=== PATIENT | female | born 1970 | race Caucasian/White ===

== ENCOUNTER 2020-11-02 10:29 | Outpatient (REF) | payer MEDICAID, SELFPAY ==
--- NOTE | 2020-11-02 | US_ITS ---
EXAMINATION: US RETROPERITONEAL LIMITED (RENAL ONLY) CLINICAL INFORMATION: Nephrolithiasis, calculus of kidney. COMPARISON: None TECHNIQUE: Real-time imaging of the kidneys. FINDINGS: RIGHT KIDNEY: 10.1 x 5.0 x 4.9 cm (SAG x AP x TRV). The kidney is normal in size, contour, and echogenicity. Renal cortical thickness is normal. No calculi or focal parenchymal lesions. No hydronephrosis. LEFT KIDNEY: 10.5 x 5.6 x 5.0 cm (SAG x AP x TRV). The kidney is normal in size, contour, and echogenicity. Renal cortical thickness is normal. No calculi or focal parenchymal lesions. No hydronephrosis. US/US renal BI IMPRESSION: Unremarkable renal ultrasound.
== END 2020-11-02 10:30 | disposition home or self-care (01) ==
LOC: HO.US 10:29
PROVIDERS: Visit Provider Urology
DX: N20.0 Calculus of kidney (principal)
CPT/HCPCS: 76775

== ENCOUNTER → 2020-11-16 09:38 | Outpatient (BNVA) | payer MEDICAID, SELFPAY | PROVIDERS: PCP Nurse Practitioner Family; Referring Provider Nurse Practitioner Family; Visit Provider Urology ==

== ENCOUNTER 2021-08-01 11:23 | Emergency (ER) | payer MEDICAID, SELFPAY ==
--- NOTE | ~2021-08-01 | XR_ITS ---
EXAMINATION: XR CHEST CLINICAL INFORMATION: Cough and congestion COMPARISON: Previous chest x-ray June 2018 TECHNIQUE: Frontal view of the chest was obtained. FINDINGS: No significant abnormality is noted involving the heart, lungs, mediastinum, bony thorax or soft tissues. XR/XR chest 1V IMPRESSION: Unremarkable examination.
[2021-08-01 11:50] VITALS: BP 133/78; PULSE 100; RESP 19; TEMP 36.6; O2SAT 100; BMI 26.5
[2021-08-01 13:50] LABS: IDNOW Serial# 08D9AD1C; Strep A Nucleic Acid Negative (Negative)
--- NOTE | 2021-08-01 14:18 | ED_ITS ---
HPI - URI/Sore Throat General Chief Complaint: Upper Respiratory Symptoms Stated Complaint: diff breathing, multiple complaints Time Seen by Provider: 08/01/21 12:25 Source: patient Mode of arrival: ambulatory Limitations: no limitations History of Present Illness HPI Narrative: 51-year-old female with a past medical history of asthma and COVID in October of 2019 she reports she completely recovered from COVID who is up-to-date on her COVID vaccine last received her COVID vaccine on 04/28/2021 presenting to the ED with URI complaints which include bilateral ear pain, sore throat, nasal congestion/rhinorrhea, productive cough with yellow/green colored sputum and shortness of breath for the past 3 days worse today. Reports that her grandson was over her house a few days ago and had similar symptoms although he has not been evaluated per the patient. She also reports intermittent diarrhea. She denies any measured fevers, chills, dizziness, headache, chest pain, palpitations, dyspnea on exertion, orthopnea, nausea/vomiting, abdominal pain, back pain, black or bloody stools, dysuria, hematuria, rashes or any other symptoms complaints or concerns at this time. MD elicited complaint: cough, sore throat, rhinorrhea, nasal congestion and sinus pain Pertinent past history: asthma and other (COVID-19 on Oct 2019) Onset (ago): day(s) (3 days worse today ) Consistency: constant and progressively worsening Severity: moderate Description of mucous: clear, watery, yellow and green Able to tolerate fluids by mouth: Yes Exacerbating factors: swallowing and deep breaths Relieving factors: nothing Context: sick contacts (Has similar symptoms) Associated symptoms: myalgias, rhinorrhea, nasal congestion, sore throat, cough, diarrhea and ear pain Treatments prior to arrival: none Related Data Previous Rx's Medication Instructions Recorded acetaminophen 500 mg tablet 1,000 mg PO QID PRN #14 tab 08/01/21 (Tylenol Extra Strength) albuterol sulfate 90 mcg/actuation 1 inh INHALATION QID PRN #8.5 g 08/01/21 aerosol inhaler codeine 10 mg-guaifenesin 100 mg/5 5 ml PO Q6H PRN #120 ml 08/01/21 mL oral liquid (Guaifenesin AC) cyclobenzaprine 10 mg tablet 10 mg PO Q8H #10 tab 08/01/21 fluticasone propionate 50 1 spray INTRANASAL BID #16 g 08/01/21 mcg/actuation nasal spray,suspension (Children's Flonase Allergy Relief) prednisone 20 mg tablet 40 mg PO DAILY 5 Days #10 tab 08/01/21 Allergies Allergy/AdvReac Type Severity Reaction Status Date / Time naproxen [From NAPROSYN] Allergy Unknown STOMACH Unverified 11/16/20 09:41 UPSET Review of Systems Review of Systems: Constitutional : Positive malaise, No Weight loss, No Fever, No Chills, No Night Sweats, No Fatigue ENT/Mouth : Positive sore throat/ear pain/nasal congestion/rhinorrhea, No Hearing loss, No Sinus Pain, No Hoarseness, No Swallowing Difficulty Eyes: No Eye Pain, No Swelling, No Redness, No Foreign Body, No Discharge, No Vision Changes Cardiovascular : No Chest Pain, No SOB, No Dyspnea on Exertion, No Orthopnea, No Edema, No Palpitations Respiratory : Positive cough with sputum production, No Wheezing, No Smoke Exposure, No Dyspnea Gastrointestinal : Positive Diarrhea, No Nausea, No Vomiting, No Constipation, No abdominal Pain, No Hematochezia, No Melena Genitourinary : no irregular bleeding, No Dysuria, No Urinary Frequency, No Hematuria, No Urinary Incontinence, No Urgency, No Flank Pain, No Urinary Flow Changes, No Hesitancy Musculoskeletal : No joint pain, No Myalgias, No Joint Swelling Skin : No Skin Lesions, No rash Neuro : No Weakness, No Numbness, No Paresthesias, No Loss of Consciousness, No Dizziness, No Headache Psych : No Anxiety/Panic, No Depression, No SI/HI/AH/VH, No Social Issues, Heme/Lymph: No Bruising, No Bleeding,No Lymphadenopathy Endocrine : No Polyuria, No Polydipsia, No Temperature Intolerance Yes all other systems are reviewed and are negative [facility] Past Medical History Attestation statement: The following information was validated with the patient. Social History Social History Advance Directives: No Patient : No Physical Exam Vital Signs: Vital Signs: Last Vital Signs Temp 98 F 08/01/21 11:50 Pulse 100 08/01/21 11:50 Resp 19 08/01/21 11:50 BP 133/78 08/01/21 11:50 Pulse Ox 100 08/01/21 11:50 Body Mass Index 26.5 vital signs have been reviewed as normal and appeared to be correct. Blood pressure normal. Heart rate normal. Respiration rate normal. Temperature normal. Oxygen saturation normal. Appearance: Alert. Oriented X3. No acute distress. Head: Normal external exam. Normocephalic. Atraumatic. Eyes: PERRLA. EOMI. Conjunctiva and sclera normal. Eyelids normal. ENT: EAC normal. TM's Normal. Pharynx normal. Uvula midline. Moist mucous membranes. No trismus noted. No drooling noted. No muffled voice noted. Neck: Normal inspection. Neck supple. FROM. No adenopathy. Thyroid Normal. No meningeal signs. No neck mass noted. CVS: Normal heart rate and rhythm. Heart sound normal. Pulses normal throughout. No murmurs/rales/gallops. Respiratory: No respiratory distress. Painless inspiration. Breath sounds normal. No wheezes/rales/rhonchi noted. Chest nontender. No accessory muscle usage noted or decreased air movement noted. Abdomen: Soft and nontender. Bowel sounds normal in all 4 quadrants. No distention noted. No organomegaly noted. No visible injury noted. Back: Full range of motion noted. No rashes/lesion/induration/fluctuance or signs of infection noted. Skin: Skin warm and dry. Normal skin color. Normal skin turgor. No rashes/lesions/lacerations noted. Extremities: Extremities exhibit normal range of motion. Extremities nontender. Neuro: Oriented X 3. No motor deficit. No sensory deficit. Reflexes normal. Normal steady gait. No focal neuro deficits noted. Vascular: + radial pulses/+ 2 distal pedal pulses/+2 dorsalis pedis b/l. Normal cap refill. No cyanosis noted to upper extremity nails and lower extremity toes nails. Course Course Course Narrative: 51-year-old female presenting to the ED with URI symptoms for the past 3 days worse today. Positive sick contacts or grandson with similar symptoms although he was not evaluated by PCP or emergency department. Patient is positive for RSV. Negative for COVID/flu. Negative for strep. Chest x-ray is negative. I printed out the results and gave a copy to the patient. Will DC home with symptomatic treatment instructions return if any new or worsening symptoms and to follow up with primary care provider. Patient understands agrees with this plan. MDM - URI/Sore Throat Medical Records Attestation: I reviewed the patient's medical records. Lab Data Attestation: I reviewed the patient's lab results. Labs: Lab Results 08/01/21 Range/Units 13:22 S. pyogenes GrpA VIKKI Negative (Negative) Imaging Data Chest x-ray: Attestation: I personally reviewed and interpreted this imaging study as follows: Radiologist's impression: FINDINGS: No significant abnormality is noted involving the heart, lungs, mediastinum, bony thorax or soft tissues. XR/XR chest 1V IMPRESSION: Unremarkable examination. Discharge Plan Discharge Clinical Impression: Respiratory syncytial virus (RSV) Patient Disposition: Home, Self-Care Instructions: Respiratory Syncytial Virus (ED) Prescriptions: New cyclobenzaprine 10 mg tablet 10 mg PO Q8H Qty: 10 RF: 0 prednisone 20 mg tablet 40 mg PO DAILY 5 Days Qty: 10 RF: 0 acetaminophen [Tylenol Extra Strength] 500 mg tablet 1,000 mg PO QID PRN (Reason: fever or pain) Qty: 14 RF: 0 codeine-guaifenesin [Guaifenesin AC] 10-100 mg/5 mL liquid 5 ml PO Q6H PRN (Reason: cold symptoms) Qty: 120 RF: 0 albuterol sulfate 90 mcg/actuation HFA aerosol inhaler 1 inh inhalation QID PRN (Reason: shortness of breath or wheezing) Qty: 8.5 RF: 0 fluticasone propionate [Children's Flonase Allergy Rlf] 50 mcg/actuation spray,suspension 1 spray intranasal BID Qty: 16 RF: 0 Referrals: Physician,Unknown J [Primary Care Provider] - 2 days (your pcp) Stand Alone Forms: Work/School Release Print Language: Amharic
[2021-08-01 14:24] LABS: Influenza A PCR NEGATIVE (Negative); Influenza B PCR NEGATIVE (Negative); Resp Syncy Virus RNA Qual PCR POSITIVE (Negative); SARS COV2 PCR INHOUSE NEGATIVE (Negative)
== END 2021-08-01 15:05 | disposition home or self-care (01) ==
PROVIDERS: Physician Assistant Medical; Emergency Provider Emergency Medicine
DX: J06.9 Acute upper respiratory infection, unspecified (principal); B97.4 Respiratory syncytial virus as the cause of diseases classified elsewhere; R06.02 Shortness of breath; M79.10 Myalgia, unspecified site; R05.9 Cough, unspecified; Z20.822 Contact with and (suspected) exposure to COVID-19; Z79.899 Other long term (current) drug therapy
CPT/HCPCS: 0241U; 36415; 71045; 87651; 99283

== ENCOUNTER 2021-11-17 10:10 | Emergency (ER) | payer OTHER, SELFPAY ==
[2021-11-17 10:34] VITALS: BP 140/96; PULSE 86; RESP 18; TEMP 36; O2SAT 98; BMI 12107.2
--- NOTE | 2021-11-17 11:11 | ED_ITS ---
HPI - General Adult General Chief complaint: Upper Respiratory Symptoms Stated complaint: Headache/cough/sore throat Time Seen by Provider: 11/17/21 11:11 Source: patient Limitations: no limitations History of Present Illness HPI narrative: Patient presents to the ER with headache cough sore throat. Recent COVID-19 test is negative. Patient states she had COVID in the 1st wave is fully vaccinated but did not have a booster shot at this time. A known COVID-19 exposures. Pain increases with swallowing. Patient also has a longstanding history of asthma which she takes 2 inhalers for. Patient states cough has been nonproductive and sore throat as sharp in nature. Pain is 6/10. No other complaints at this time. No recent travel history. Related Data Previous Rx's Medication Instructions Recorded acetaminophen 500 mg tablet 1,000 mg PO QID PRN #14 tab 08/01/21 (Tylenol Extra Strength) albuterol sulfate 90 mcg/actuation 1 inh INHALATION QID PRN #8.5 g 08/01/21 aerosol inhaler codeine 10 mg-guaifenesin 100 mg/5 5 ml PO Q6H PRN #120 ml 08/01/21 mL oral liquid (Guaifenesin AC) cyclobenzaprine 10 mg tablet 10 mg PO Q8H #10 tab 08/01/21 fluticasone propionate 50 1 spray INTRANASAL BID #16 g 08/01/21 mcg/actuation nasal spray,suspension (Children's Flonase Allergy Relief) prednisone 20 mg tablet 40 mg PO DAILY 5 Days #10 tab 08/01/21 benzonatate 100 mg capsule 100 mg PO TID PRN #20 cap 11/17/21 Allergies Allergy/AdvReac Type Severity Reaction Status Date / Time naproxen [From NAPROSYN] Allergy Unknown STOMACH Unverified 11/16/20 09:41 UPSET Review of Systems Constitutional: Constitutional: Reports body ache(s), Denies chills, Reports fatigue, Reports fever(s) and Denies headache(s) ENT: Denies dizziness, Denies headache(s), Reports nasal congestion, Reports nasal discharge and Reports sore throat Cardiovascular: Cardiovascular: Denies chest pain and Denies dyspnea Respiratory: Respiratory: Reports cough and Denies dyspnea Gastrointestinal: Gastrointestinal: Denies diarrhea, Denies nausea and Denies vomiting Musculoskeletal: Musculoskeletal: Denies back pain and Denies muscle cramps Neurologic: Denies dizziness and Denies headache(s) Endocrine: Endocrine: Reports fatigue PMFSH Social History Social History Advance Directives: No Advance Directives Information Provided: No Physical Exam Vital Signs: Vital Signs: Last Vital Signs Temp 96.8 F 11/17/21 10:34 Pulse 86 11/17/21 10:34 Resp 18 11/17/21 10:34 BP 140/96 H 11/17/21 10:34 Pulse Ox 98 11/17/21 10:34 BMI result Body Mass Index 47809.2 vital signs have been reviewed as normal and appeared to be correct. Blood pressure normal. Heart rate normal. Respiration rate normal. Temperature normal. Oxygen saturation normal. Appearance: Alert. Oriented X3. No acute distress. Head: Normal external exam. Normocephalic. Atraumatic. Eyes: PERRLA. EOMI. Conjunctiva and sclera normal. Eyelids normal. ENT: Pharynx normal. Uvula midline. Moist mucous membranes. No evidence of peritonsillar abscess no stridor Neck: Soft full range of motion CVS: Heart regular rate and rhythm no murmurs and rubs Respiratory: Breath sounds are clear to auscultation bilaterally. No accessory muscle use noted Back: Full range of motion noted. Skin: Skin warm and dry. Normal skin color. Normal skin turgor. No rashes/lesions/lacerations noted. Extremities: No lower extremity edema. Extremities exhibit normal range of motion. Extremities nontender. Neuro: Oriented X 3. No motor deficit. No sensory deficit. Reflexes normal. Course Course Course Narrative: Asthma exacerbation Viral URI COVID-19 Pharyngitis COVID-19 swab is pending room air O2 sat is 98%. Patient is nontoxic in appeara nce lung signs are otherwise clear with no tachypnea or respiratory distress. 11:30 a.m. COVID-19 test is negative plan to discharge patient home on [facility] and recommend follow-up test in 1 week. Medical Decision Making Lab Data Labs: Lab Results 11/17/21 Range/Units 10:44 COVID-19 (JR) Negative (Negative) COVID-19 Clin Com See Note Discharge Plan Discharge Clinical Impression: Upper respiratory infection Patient Disposition: Home, Self-Care Instructions: Upper Respiratory Infection (ED) Additional Instructions: COVID-19 test is negative continue current medications increase fluids rest Recommend repeat COVID-19 test in 3-4 days Prescriptions: New benzonatate 100 mg capsule 100 mg PO TID PRN (Reason: cough) Qty: 20 RF: 0 No Action cyclobenzaprine 10 mg tablet 10 mg PO Q8H Qty: 10 RF: 0 prednisone 20 mg tablet 40 mg PO DAILY 5 Days Qty: 10 RF: 0 acetaminophen [Tylenol Extra Strength] 500 mg tablet 1,000 mg PO QID PRN (Reason: fever or pain) Qty: 14 RF: 0 codeine-guaifenesin [Guaifenesin AC] 10-100 mg/5 mL liquid 5 ml PO Q6H PRN (Reason: cold symptoms) Qty: 120 RF: 0 albuterol sulfate 90 mcg/actuation HFA aerosol inhaler 1 inh inhalation QID PRN (Reason: shortness of breath or wheezing) Qty: 8.5 RF: 0 fluticasone propionate [Children's Flonase Allergy Rlf] 50 mcg/actuation spray,suspension 1 spray intranasal BID Qty: 16 RF: 0 Stand Alone Forms: Work/School Release Print Language: Marshallese
[2021-11-17 11:20] LABS: COVID-19 Test Negative (Negative); IDNOW Serial# 55D5AD1C
== END 2021-11-17 11:49 | disposition home or self-care (01) ==
LOC: HO.ED 11:32
PROVIDERS: Emergency Provider Emergency Medicine Emergency Medical Services
DX: J06.9 Acute upper respiratory infection, unspecified (principal); Z20.822 Contact with and (suspected) exposure to COVID-19; J02.9 Acute pharyngitis, unspecified
CPT/HCPCS: 87635; 99283

== ENCOUNTER 2022-03-22 20:52 | Emergency (ER) | payer OTHER, SELFPAY ==
--- NOTE | 2022-03-22 | ECG_ITS ---
Test Reason : PALPITATIONS Blood Pressure : / mmHG Vent. Rate : 080 BPM Atrial Rate : 080 BPM P-R Int : 130 ms QRS Dur : 082 ms QT Int : 414 ms P-R-T Axes : 061 040 -09 degrees QTc Int : 477 ms Normal sinus rhythm Nonspecific ST and T wave abnormality Abnormal ECG When compared with ECG of 18-JUL-2018 13:28, Premature ventricular complexes are no longer Present Referred By: Generic ED Physician Electronically Signed By:Lorenzo Narayanan
[2022-03-22 21:29] VITALS: BP 166/108; PULSE 81; RESP 24; TEMP 36.4; O2SAT 99; BMI 27.4
[2022-03-22 21:47] LABS: MANUAL DIFF FLAG NO
[2022-03-22 21:48] LABS: Basophils Absolute Auto 0.1 X10*3/uL (0.0-0.2); Basophils Percent Auto 0.8 % (0-2); Eosinophils Absolute Auto 0.2 X10*3/uL (0.0-0.4); Eosinophils Percent Auto 2.4 % (0-4); Hematocrit 39.4 % (37.0-47.0); Hemoglobin 12.9 g/dl (12.0-16.0); Imm Gran Abs Auto 0.01 X10*3/uL (0.00-0.03); Imm Gran Pct Auto 0.1 % (0.0-0.4); Lymphocytes Absolute Auto 2.4 X10*3/uL (1.2-4.9); Mean Corpuscular HGB Conc 32.7 g/dl (31.0-35.0); Mean Corpuscular Hemoglobin 27.2 pg (27.0-33.0); Mean Corpuscular Volume 83.1 fL (80.0-98.0); Mean Platelet Volume 10.2 fL (9.4-12.3); Monocytes Absolute Auto 0.4 X10*3/uL (0.1-1.2); Neutrophils Absolute Auto 4.6 x10*3/uL (2.0-8.3); Neutrophils Percent Auto 60.7 % (45-73); Platelet Count 393 X10*3/uL (160-400); Red Blood Count 4.74 X10*6/uL (4.20-5.50); Red Cell Distribution Width 12.4 % (11.0-16.0); White Blood Count 7.6 X10*3/uL (4.8-10.8)
[2022-03-22 22:10] LABS: Alanine Aminotransferase 32 U/L (0-31); Albumin Level 4.2 g/dL (3.5-5.0); Alkaline Phosphatase 104 U/L (39-117); Anion Gap 13 (12-20); Aspartate Amino Transferase 28 U/L (5-31); Bilirubin Total 1.2 mg/dL (0.0-1.0); Blood Urea Nitrogen 16 mg/dL (9-16); Carbon Dioxide 25 mmol/L (22-29); Chloride 108 mmol/L (96-108); Creatinine Clr Calc Pharmacy 84.3; Estimated Glomerular Filt Rate > 60; Glucose Random 85 mg/dL (60-115); Potassium 3.7 mmol/L (3.3-5.1); Sodium 142 mmol/L (135-145); Total Protein 7.5 g/dL (6.5-8.0)
[2022-03-23 03:41] VITALS: BP 183/93; PULSE 66
--- NOTE | 2022-03-23 04:29 | ED.GENADULT ---
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 patient with back pain down left leg with a history of sciatica. Patient also stating that her blood pressure is high. patient was feeling weird so she took her blood pressure. patient had BP 138/92. Onset (ago): day(s) Radiation: extremity Severity: mild Related Data Previous Rx's Medication Instructions Recorded acetaminophen 500 mg tablet 1,000 mg PO QID PRN #14 tab 08/01/21 (Tylenol Extra Strength) albuterol sulfate 90 mcg/actuation 1 inh INHALATION QID PRN #8.5 g 08/01/21 aerosol inhaler codeine 10 mg-guaifenesin 100 mg/5 5 ml PO Q6H PRN #120 ml 08/01/21 mL oral liquid (Guaifenesin AC) cyclobenzaprine 10 mg tablet 10 mg PO Q8H #10 tab 08/01/21 fluticasone propionate 50 1 spray INTRANASAL BID #16 g 08/01/21 mcg/actuation nasal spray,suspension (Children's Flonase Allergy Relief) prednisone 20 mg tablet 40 mg PO DAILY 5 Days #10 tab 08/01/21 benzonatate 100 mg capsule 100 mg PO TID PRN #20 cap 11/17/21 lisinopril 10 mg tablet 10 mg PO DAILY #30 tab 03/23/22 meloxicam 15 mg tablet 15 mg PO DAILY #20 tab 03/23/22 Allergies Allergy/AdvReac Type Severity Reaction Status Date / Time naproxen [From NAPROSYN] Allergy Unknown STOMACH Verified 03/22/22 21:28 UPSET Review of Systems Constitutional: Constitutional: Reports no additional constitutional complaints Eyes: Eyes: Reports no additional eye complaints ENT: Denies dizziness Cardiovascular: Cardiovascular: Reports no additional cardiovascular complaints Respiratory: Respiratory: Reports as per HPI Gastrointestinal: Gastrointestinal: Reports no additional gastrointestinal complaints Genitourinary: Genitourinary: Reports no additional female genitourinary complaints Musculoskeletal: Musculoskeletal: Reports no additional musculoskeletal complaints Integumentary/Breasts: Skin/Breast: Denies rash Neurologic: Reports system reviewed and no additional complaints, except as documented, Denies dizziness and Denies Sensory deficit (Neuro) Psychiatric: Psychiatric: Denies anxiety [facility] Social History Social History Advance Directives: No Advance Directives Information Provided: No Physical Exam ED Vital Signs: Vital Signs - 24 hr 03/22/22 21:29 03/23/22 03:41 Temperature 97.6 F Pulse Rate 81 66 Respiratory Rate 24 H Blood Pressure 166/108 H 183/93 H Pulse Oximetry 99 BMI result Body Mass Index 27.4 Const General: healthy appearing Nutritional Appearance: average body habitus Orientation/consciousness: oriented to person and patient oriented x3 Limitations: no limitations HENMT Head: Yes normal to inspection Ears: external ears normal General nose exam: Normal external nose present Mouth: Normal oral and palatal mucosa present and oropharynx normal Throat: Yes posterior oropharynx normal Eyes General: appearance normal, both eyes and all related structures Neck Neck: Yes normal visual inspection Chest Chest palpation & inspection: normal inspection of the chest Resp Auscultation: clear to auscultation bilaterally Cardio Jugular venous distension: no JVD Rate: regular rate Rhythm: regular rhythm Heart sounds: S1 normal heart sound present and S2 normal heart sound present GI Inspection: Yes normal to inspection Palpation (GI): Soft to palpation, nontender and No hepatosplenomegaly present Auscultation: normal bowel sounds Back/Spine/Pelvis Other: left lumbar area with SI joint pain and sciatica tendernes Skin General skin exam: no rashes or lesions noted Neuro General: oriented to person and patient oriented x3 Cranial nerves: Yes CN's II-XII intact bilaterally Motor exam (neuro): 5/5 motor strength present throughout Sensory Exam: No Sensory deficit (Neuro) Extrem General: Yes normal to inspection Psych Appearance: grossly normal Course Reevaluation(s) Reevaluation #1: patient has sciatica and elevated BP will start lisinopril and dc home Time: 04:52 Medical Decision Making Lab Data Result diagrams: 03/22/22 21:42 03/22/22 21:41 Labs: Lab Results 03/22/22 03/22/22 Range/Units 21:41 21:42 WBC 7.6 (4.8-10.8) X10*3/uL RBC 4.74 (4.20-5.50) X10*6/uL Hgb 12.9 (12.0-16.0) g/dl Hct 39.4 (37.0-47.0) % MCV 83.1 (80.0-98.0) fL MCH 27.2 (27.0-33.0) pg MCHC 32.7 (31.0-35.0) g/dl RDW 12.4 (11.0-16.0) % Plt Count 393 (160-400) X10*3/uL MPV 10.2 (9.4-12.3) fL Immature Gran % (Auto) 0.1 (0.0-0.4) % Neut % (Auto) 60.7 (45-73) % Lymph % (Auto) 31.0 (20-40) % Lipscomb % (Auto) 5.0 (2-11) % Eos % (Auto) 2.4 (0-4) % Baso % (Auto) 0.8 (0-2) % Lymph # (Auto) 2.4 (1.2-4.9) X10*3/uL Lipscomb # (Auto) 0.4 (0.1-1.2) X10*3/uL Eos # (Auto) 0.2 (0.0-0.4) X10*3/uL Baso # (Auto) 0.1 (0.0-0.2) X10*3/uL Abs Immat Gran (auto) 0.01 (0.00-0.03) X10*3/uL Absolute Neuts (auto) 4.6 (2.0-8.3) x10*3/uL Absolute Nucleated RBC 0.000 (0.0-0.012) X10*3/uL Nucleated RBC % (auto) 0.0 (0.0-0.2) /100WBC Sodium 142 (135-145) mmol/L Potassium 3.7 (3.3-5.1) mmol/L Chloride 108 (96-108) mmol/L Carbon Dioxide 25 (22-29) mmol/L Anion Gap 13 (12-20) BUN 16 (9-16) mg/dL Creatinine 0.75 (0.5-1.4) mg/dL Estim Creat Clear Calc 84.3 Estimated GFR > 60 Random Glucose 85 (60-115) mg/dL Calcium 10.0 (8.4-10.2) mg/dL Total Bilirubin 1.2 H (0.0-1.0) mg/dL AST 28 (5-31) U/L ALT 32 H (0-31) U/L Alkaline Phosphatase 104 (39-117) U/L Total Protein 7.5 (6.5-8.0) g/dL Albumin 4.2 (3.5-5.0) g/dL Discharge Plan Discharge Clinical Impression: Sciatica, Hypertension Patient Disposition: Home, Self-Care Instructions: Sciatica (ED), Hypertension (ED) Prescriptions: New meloxicam 15 mg tablet 15 mg PO DAILY Qty: 20 0RF lisinopril 10 mg tablet 10 mg PO DAILY Qty: 30 0RF No Action cyclobenzaprine 10 mg tablet 10 mg PO Q8H Qty: 10 0RF prednisone 20 mg tablet 40 mg PO DAILY 5 Days Qty: 10 0RF acetaminophen [Tylenol Extra Strength] 500 mg tablet 1,000 mg PO QID PRN (Reason: fever or pain) Qty: 14 0RF codeine-guaifenesin [Guaifenesin AC] 10-100 mg/5 mL liquid 5 ml PO Q6H PRN (Reason: cold symptoms) Qty: 120 0RF albuterol sulfate 90 mcg/actuation HFA aerosol inhaler 1 inh inhalation QID PRN (Reason: shortness of breath or wheezing) Qty: 8.5 0RF fluticasone propionate [Children's Flonase Allergy Rlf] 50 mcg/actuation spray,suspension 1 spray intranasal BID Qty: 16 0RF Rx Instructions: administer into each nostril benzonatate 100 mg capsule 100 mg PO TID PRN (Reason: cough) Qty: 20 0RF Referrals: Farhan Nelson MD [Primary Care Provider] - 3 days
[2022-03-23] MEDS: Ketorolac Tromethamine 60 MG/2 ML VIAL IM (05:00)
[2022-03-23] MEDS: lisinopriL 10 MG TABLET PO (05:00)
== END 2022-03-23 05:17 | disposition home or self-care (01) ==
PROVIDERS: Emergency Provider Emergency Medicine; PCP Internal Medicine
DX: M54.42 Lumbago with sciatica, left side (principal); I10 Essential (primary) hypertension
CPT/HCPCS: 36415; 80053; 85025; 93005; 96372; 99283; 99284; J1885

== ENCOUNTER 2022-05-04 13:56 | Emergency (ER) | payer OTHER, SELFPAY ==
--- NOTE | 2022-05-04 | ECG_ITS ---
Test Reason : cp,dizzy Blood Pressure : / mmHG Vent. Rate : 074 BPM Atrial Rate : 074 BPM P-R Int : 116 ms QRS Dur : 078 ms QT Int : 400 ms P-R-T Axes : -12 029 -09 degrees QTc Int : 444 ms Normal sinus rhythm Normal ECG When compared with ECG of 22-MAR-2022 21:26, No significant change was found Referred By: Generic ED Physician Electronically Signed By:Lorenzo Narayanan
--- NOTE | ~2022-05-04 | XR_ITS ---
EXAMINATION: XR CHEST CLINICAL INFORMATION: Chest pain COMPARISON: 08/01/2021 TECHNIQUE: Frontal view of the chest was obtained. FINDINGS: No significant abnormality is noted involving the heart, lungs, mediastinum, bony thorax or soft tissues. XR/XR chest 1V IMPRESSION: Unremarkable examination.
[2022-05-04 14:11] LABS: MANUAL DIFF FLAG NO
[2022-05-04 14:12] VITALS: BP 152/94; PULSE 72; RESP 18; TEMP 36.6; O2SAT 99; BMI 26.5
[2022-05-04 14:15] LABS: Basophils Percent Auto 0.5 % (0-2); Eosinophils Absolute Auto 0.1 X10*3/uL (0.0-0.4); Eosinophils Percent Auto 2.3 % (0-4); Hematocrit 38.7 % (37.0-47.0); Hemoglobin 12.6 g/dl (12.0-16.0); Imm Gran Abs Auto 0.02 X10*3/uL (0.00-0.03); Imm Gran Pct Auto 0.3 % (0.0-0.4); Lymphocytes Absolute Auto 1.4 X10*3/uL (1.2-4.9); Lymphocytes Percent Auto 23.7 % (20-40); Mean Corpuscular HGB Conc 32.6 g/dl (31.0-35.0); Mean Corpuscular Hemoglobin 27.5 pg (27.0-33.0); Mean Corpuscular Volume 84.3 fL (80.0-98.0); Mean Platelet Volume 10.4 fL (9.4-12.3); Monocytes Absolute Auto 0.3 X10*3/uL (0.1-1.2); Monocytes Percent Auto 4.4 % (2-11); Neutrophils Absolute Auto 3.9 x10*3/uL (2.0-8.3); Neutrophils Percent Auto 68.8 % (45-73); Platelet Count 381 X10*3/uL (160-400); Red Blood Count 4.59 X10*6/uL (4.20-5.50); White Blood Count 5.7 X10*3/uL (4.8-10.8)
[2022-05-04 14:25] LABS: Anion Gap 11 (12-20); Blood Urea Nitrogen 15 mg/dL (9-16); Calcium 9.4 mg/dL (8.4-10.2); Carbon Dioxide 25 mmol/L (22-29); Chloride 109 mmol/L (96-108); Creatinine Clr Calc Pharmacy 80.9; Estimated Glomerular Filt Rate > 60; Glucose Random 115 mg/dL (60-115); Potassium 4.3 mmol/L (3.3-5.1); Sodium 141 mmol/L (135-145)
[2022-05-04 14:33] LABS: Troponin-I High Sensitivity < 3.5 ng/L (<3.5-17.0)
[2022-05-04 19:46] VITALS: BP 145/92; PULSE 70; RESP 16; TEMP 36.7; O2SAT 99
--- NOTE | 2022-05-04 20:03 | ED_ITS ---
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 Patient admitted that she is been having stress in her work due to shortage of workers at work, patient gets nightmares and bad dreams about working. Been having palpitation and headache with chest pain on and off for the last 3- 4 days, more of palpitation that bother the patient that is intermittent, triggered by thinking about working, no aggravating or relieving factor. No radiation, no shortness of breath. Patient with this feels dizzy and headache for the past 3-4 days. Past medical history is significant for asthma, no hypertension, no history of high cholesterol, no DM. No recent travel, no lower extremity swelling or tenderness. No history of PE or DVT. Related Data Previous Rx's Medication Instructions Recorded acetaminophen 500 mg tablet 1,000 mg PO QID PRN fever or pain 08/01/21 (Tylenol Extra Strength) #14 tabs albuterol sulfate 90 mcg/actuation 1 inh inhalation QID PRN shortness 08/01/21 aerosol inhaler of breath or wheezing #8.5 grams codeine 10 mg-guaifenesin 100 mg/5 5 ml PO Q6H PRN cold symptoms #120 08/01/21 mL oral liquid (Guaifenesin AC) mL cyclobenzaprine 10 mg tablet 10 mg PO Q8H Muscle spasm #10 tabs 08/01/21 fluticasone propionate 50 1 spray intranasal BID nasal 08/01/21 mcg/actuation nasal congestion #16 grams spray,suspension (Children's Flonase Allergy Relief) prednisone 20 mg tablet 40 mg PO DAILY rash 5 days #10 tabs 08/01/21 benzonatate 100 mg capsule 100 mg PO TID PRN cough #20 caps 11/17/21 lisinopril 10 mg tablet 10 mg PO DAILY #30 tabs 03/23/22 meloxicam 15 mg tablet 15 mg PO DAILY #20 tabs 03/23/22 Allergies Allergy/AdvReac Type Severity Reaction Status Date / Time naproxen [From NAPROSYN] AdvReac Unknown STOMACH Verified 05/04/22 14:10 UPSET Review of Systems Review of Systems: All other systems are reviewed and are negative Constitutional: Reports as per HPI and Reports no additional constitutional complaints Eyes: Reports as per HPI and Reports no additional eye complaints Reports system reviewed and no additional complaints, except as documented Cardiovascular: Reports as per HPI and Reports no additional cardiovascular complaints Respiratory: Reports as per HPI and Reports no additional respiratory complaints Gastrointestinal: Reports as per HPI and Reports no additional gastrointestinal complaints Genitourinary: Reports no additional female genitourinary complaints Musculoskeletal: Reports no additional musculoskeletal complaints Skin/Breast: Reports system reviewed and no additional complaints, except as docu Psychiatric: Reports no additional psychiatric complaints Endocrine: Reports no additional endocrine complaints Hematologic/Lymphatic: Reports no additional hematologic/lymphatic complaints Allergic/Immunologic: Reports no additional allergic/immunologic complaints Reports system reviewed and no additional complaints, except as documented and Reports Abnormal speech present [facility] Social History Social History Advance Directives: No Advance Directives Information Provided: Yes Physical Exam ED Vital Signs: Vital Signs - 24 hr 05/04/22 14:12 05/04/22 19:46 Temperature 98 F 98.1 F Pulse Rate 72 70 Respiratory Rate 18 16 Blood Pressure 152/94 H 145/92 H Pulse Oximetry 99 99 Oxygen Delivery Method Room Air Room Air BMI result Body Mass Index 26.5 Vital signs have been reviewed as appeared to be correct. Blood pressure nor mal. Heart rate normal. Respiration rate normal. Temperature normal. Oxygen saturation normal. Appearance: Alert. Oriented X3. No acute distress. Head: Normal external exam. Normocephalic. Atraumatic. No Cash signs noted. No raccoon eyes noted Eyes: PERRLA. EOMI. Conjunctiva and sclera normal. Eyelids normal. ENT: TM's Normal. Pharynx normal. Uvula midline. Moist mucous membranes. No trismus noted. No drooling noted. No muffled voice noted. Neck: Normal inspection. Neck supple. FROM. No adenopathy. Thyroid Normal. No meningeal signs. No neck mass noted. CVS: Normal heart rate and rhythm. Heart sound normal. No murmurs noted. Pulses normal throughout. Respiratory: No respiratory distress. Painless inspiration. Breath sounds normal. No wheezes/rales/rhonchi noted. Chest nontender. No accessory muscle usage noted or decreased air movement noted. Abdomen: Soft and nontender. Bowel sounds normal in all 4 quadrants. No distention noted. No organomegaly noted. No visible injury noted. Back: No CVA tenderness. Full range of motion noted. Skin: Skin warm and dry. Normal skin color. Normal skin turgor. No rashes/lesions/lacerations noted. Extremities: No lower extremity edema. Extremities exhibit normal range of motion. Extremities nontender. Neuro: Oriented X 3. Cranial nerve exam: II-XII are grossly intact No motor deficit. No sensory deficit. Reflexes normal. Course Course Course Narrative: 51-year-old female with HEART score of 1 unremarkable finding, patient also had very low risk for PE. Patient admitted to stress in her job that is probably causing her symptoms. Will discharge the patient to follow-up with PCP. No HI or SI. Medical Decision Making Lab Data Lab results reviewed: Yes I reviewed the patient's lab results. Result diagrams: 05/04/22 14:07 05/04/22 14:07 Labs: Lab Results 05/04/22 05/04/22 05/04/22 Range/Units 14:07 14:07 14:07 WBC 5.7 (4.8-10.8) X10*3/uL RBC 4.59 (4.20-5.50) X10*6/uL Hgb 12.6 (12.0-16.0) g/dl Hct 38.7 (37.0-47.0) % MCV 84.3 (80.0-98.0) fL MCH 27.5 (27.0-33.0) pg MCHC 32.6 (31.0-35.0) g/dl RDW 13.0 (11.0-16.0) % Plt Count 381 (160-400) X10*3/uL MPV 10.4 (9.4-12.3) fL Immature Gran % (Auto) 0.3 (0.0-0.4) % Neut % (Auto) 68.8 (45-73) % Lymph % (Auto) 23.7 (20-40) % [place] % (Auto) 4.4 (2-11) % Eos % (Auto) 2.3 (0-4) % Baso % (Auto) 0.5 (0-2) % Lymph # (Auto) 1.4 (1.2-4.9) X10*3/uL [place] # (Auto) 0.3 (0.1-1.2) X10*3/uL Eos # (Auto) 0.1 (0.0-0.4) X10*3/uL Baso # (Auto) 0.0 (0.0-0.2) X10*3/uL Abs Immat Gran (auto) 0.02 (0.00-0.03) X10*3/uL Absolute Neuts (auto) 3.9 (2.0-8.3) x10*3/uL Absolute Nucleated RBC 0.000 (0.0-0.012) X10*3/uL Nucleated RBC % (auto) 0.0 (0.0-0.2) /100WBC D-Dimer High Sensitivty NG/ML Sodium 141 (135-145) mmol/L Potassium 4.3 (3.3-5.1) mmol/L Chloride 109 H (96-108) mmol/L Carbon Dioxide 25 (22-29) mmol/L Anion Gap 11 L (12-20) BUN 15 (9-16) mg/dL Creatinine 0.77 (0.5-1.4) mg/dL Estim Creat Clear Calc 80.9 Estimated GFR > 60 Random Glucose 115 (60-115) mg/dL Calcium 9.4 (8.4-10.2) mg/dL Troponin I High Sens < 3.5 (<3.5-17.0) ng/L 05/04/22 05/04/22 Range/Units 20:07 20:07 WBC (4.8-10.8) X10*3/uL RBC (4.20-5.50) X10*6/uL Hgb (12.0-16.0) g/dl Hct (37.0-47.0) % MCV (80.0-98.0) fL MCH (27.0-33.0) pg MCHC (31.0-35.0) g/dl RDW (11.0-16.0) % Plt Count (160-400) X10*3/uL MPV (9.4-12.3) fL Immature Gran % (Auto) (0.0-0.4) % Neut % (Auto) (45-73) % Lymph % (Auto) (20-40) % [place] % (Auto) (2-11) % Eos % (Auto) (0-4) % Baso % (Auto) (0-2) % Lymph # (Auto) (1.2-4.9) X10*3/uL [place] # (Auto) (0.1-1.2) X10*3/uL Eos # (Auto) (0.0-0.4) X10*3/uL Baso # (Auto) (0.0-0.2) X10*3/uL Abs Immat Gran (auto) (0.00-0.03) X10*3/uL Absolute Neuts (auto) (2.0-8.3) x10*3/uL Absolute Nucleated RBC (0.0-0.012) X10*3/uL Nucleated RBC % (auto) (0.0-0.2) /100WBC D-Dimer High Sensitivty < 150 NG/ML Sodium (135-145) mmol/L Potassium (3.3-5.1) mmol/L Chloride (96-108) mmol/L Carbon Dioxide (22-29) mmol/L Anion Gap (12-20) BUN (9-16) mg/dL Creatinine (0.5-1.4) mg/dL Estim Creat Clear Calc Estimated GFR Random Glucose (60-115) mg/dL Calcium (8.4-10.2) mg/dL Troponin I High Sens < 3.5 (<3.5-17.0) ng/L Imaging Data Chest x-ray: Attestation: I personally reviewed and interpreted this imaging study as follows: Radiologist's impression: Unremarkable examination. ECG Data Attestation: I personally reviewed and interpreted this ECG as follows: Interpretation: Normal sinus rhythm at 74 beats per minutes, normal intervals, normal axis deviation, no ST-T changes. Discharge Plan Discharge Clinical Impression: Panic disorder, Chest pain Patient Disposition: Home, Self-Care Instructions: Panic Disorder (ED) Prescriptions: No Action cyclobenzaprine 10 mg tablet 10 mg PO Q8H Qty: 10 0RF prednisone 20 mg tablet 40 mg PO DAILY 5 Days Qty: 10 0RF acetaminophen [Tylenol Extra Strength] 500 mg tablet 1,000 mg PO QID PRN (Reason: fever or pain) Qty: 14 0RF codeine-guaifenesin [Guaifenesin AC] 10-100 mg/5 mL liquid 5 ml PO Q6H PRN (Reason: cold symptoms) Qty: 120 0RF albuterol sulfate 90 mcg/actuation HFA aerosol inhaler 1 inh inhalation QID PRN (Reason: shortness of breath or wheezing) Qty: 8.5 0RF fluticasone propionate [Children's Flonase Allergy Rlf] 50 mcg/actuation spray,suspension 1 spray intranasal BID Qty: 16 0RF Rx Instructions: administer into each nostril benzonatate 100 mg capsule 100 mg PO TID PRN (Reason: cough) Qty: 20 0RF meloxicam 15 mg tablet 15 mg PO DAILY Qty: 20 0RF lisinopril 10 mg tablet 10 mg PO DAILY Qty: 30 0RF Referrals: Physician,Unknown J [Primary Care Provider] - Stand Alone Forms: Work/School Release
[2022-05-04 20:30] LABS: D Dimer High Sensitivity < 150 NG/ML
[2022-05-04 20:34] LABS: Troponin-I High Sensitivity < 3.5 ng/L (<3.5-17.0)
[2022-05-04] MEDS: Acetaminophen 325 MG TABLET 650 MG PO (22:52)
== END 2022-05-04 22:58 | disposition home or self-care (01) ==
PROVIDERS: Emergency Provider Emergency Medicine
DX: R07.89 Other chest pain (principal); R42 Dizziness and giddiness; R51.9 Headache, unspecified; F41.0 Panic disorder [episodic paroxysmal anxiety]; Z79.899 Other long term (current) drug therapy
CPT/HCPCS: 36415; 71045; 80048; 84484; 85025; 85379; 93005; 99283; 99284

== ENCOUNTER 2022-06-10 09:47 | Emergency (ER) | payer OTHER, SELFPAY ==
[2022-06-10 09:51] VITALS: BP 130/90; PULSE 85; RESP 20; TEMP 37.1; O2SAT 98; BMI 26.5
[2022-06-10 10:07] LABS: Appearance Urine HAZY; Color Urine YELLOW; Glucose Urine UA NEG (NEG); Leukocyte Esterase Urine 2+ (NEG); Nitrite Urine NEG (NEG); UACC Culture Trigger YES; Urine Blood 3+ (NEG); Urine Ketones NEG (NEG); Urine Protein 1+ MG/DL (NEG-TRACE)
[2022-06-10 10:53] LABS: RBC Urine 50-75 /HPF (0); Renal Epithelial Cells Urine 1+ /LPF
--- NOTE | 2022-06-10 11:17 | ED.FEMALEGU ---
HPI - Female Genitourinary General Chief complaint: Urogenital-Female Stated complaint: vaginal pain/blood Time Seen by Provider: 06/10/22 11:13 Source: patient Mode of arrival: ambulatory History of Present Illness HPI Narrative: 52-year-old female with no significant past medical history presenting to the ED complaining of pelvic discomfort, hematuria and yellow vaginal discharge x today. Admits recently had unprotected intercourse, concern for potential STI. Denies fever, chills, abdominal pain, flank pain, vaginal bleeding MD elicited complaint: vaginal discharge and possible STD Related Data Previous Rx's Medication Instructions Recorded acetaminophen 500 mg tablet 1,000 mg PO QID PRN fever or pain 08/01/21 (Tylenol Extra Strength) #14 tabs albuterol sulfate 90 mcg/actuation 1 inh inhalation QID PRN shortness 08/01/21 aerosol inhaler of breath or wheezing #8.5 grams codeine 10 mg-guaifenesin 100 mg/5 5 ml PO Q6H PRN cold symptoms #120 08/01/21 mL oral liquid (Guaifenesin AC) mL cyclobenzaprine 10 mg tablet 10 mg PO Q8H Muscle spasm #10 tabs 08/01/21 fluticasone propionate 50 1 spray intranasal BID nasal 08/01/21 mcg/actuation nasal congestion #16 grams spray,suspension (Children's Flonase Allergy Relief) prednisone 20 mg tablet 40 mg PO DAILY rash 5 days #10 tabs 08/01/21 benzonatate 100 mg capsule 100 mg PO TID PRN cough #20 caps 11/17/21 lisinopril 10 mg tablet 10 mg PO DAILY #30 tabs 03/23/22 meloxicam 15 mg tablet 15 mg PO DAILY #20 tabs 03/23/22 Allergies Allergy/AdvReac Type Severity Reaction Status Date / Time naproxen [From NAPROSYN] AdvReac Unknown STOMACH Verified 05/04/22 14:10 UPSET Review of Systems Review of Systems: Constitutional:No Fever, No Chills, No Fatigue, No Malaise ENT/Mouth: No Hearing loss, No Ear Pain, No Nasal Congestion, No sore throat, No Rhinorrhea, No Swallowing Difficulty Eyes: No Eye Pain, No Swelling, No Redness, No Vision Changes Cardiovascular: No Chest Pain, No SOB, No Edema, No Palpitations Respiratory: No Cough, No Sputum, No Dyspnea Gastrointestinal: No Nausea, No Vomiting, No Diarrhea, No Constipation, No Abdominal pain Genitourinary: No irregular bleeding, + Dysuria, No Urinary Frequency, + Hematuria, No Urinary Incontinence/retention, + vaginal discharge, No Flank Pain, No Urinary Flow Changes, No Hesitancy Musculoskeletal: No joint pain, No Myalgias, No Joint Swelling Skin: No Skin Lesions, No rash Neuro: No Weakness, No Numbness, No Dizziness, No Headache Yes all other systems are reviewed and are negative Constitutional: Constitutional: Reports as per [facility] Past Medical History Attestation statement: The following information was validated with the patient. Social History Social History Advance Directives: No Advance Directives Information Provided: No Physical Exam Vital Signs: Vital Signs: Last Vital Signs Temp 98.7 F 06/10/22 09:51 Pulse 85 06/10/22 09:51 Resp 20 06/10/22 09:51 BP 130/90 H 06/10/22 09:51 Pulse Ox 98 06/10/22 09:51 O2 Del Method 06/10/22 09:51 BMI result Body Mass Index 26.5 Const: General: cooperative, healthy appearing and no acute distress Orientation/consciousness: patient oriented x3 Limitations: no limitations HEENT: Head: Yes normal to inspection and Yes atraumatic Ears: hearing grossly normal bilaterally General nose exam: Normal external nose present Face and sinus: Yes normal facial exam Eyes: General: appearance normal, both eyes and all related structures EOM: EOMs intact bilaterally Neck: Neck: Yes normal visual inspection and Yes no meningeal signs Resp: Effort & Inspection: normal respiratory effort and no respiratory distress Auscultation: clear to auscultation bilaterally Cardio: Rate: regular rate Heart sounds: S1 normal heart sound present and S2 normal heart sound present GI: Inspection: Yes normal to inspection Palpation (GI): Soft to palpation, nontender, no guarding and not rigid : Other: IUD strings noted from cervix General: Yes no CVA tenderness External Female Exam: normal external appearance Speculum Exam - Vagina: abnormal vaginal discharge yellow, No vaginal bleeding and nontender Speculum Exam - Cervix: normal appearance of the cervix Bimanual exam- vagina & uterus: no cervical motion tenderness Bimanual Exam- Adnexa, other: normal adnexae, no masses and no tenderness OB/external & speculum: No vaginal bleeding Back/Spine/Pelvis: Back: no CVA tenderness Skin: Rashes: no rashes Wounds: no wounds Neuro: General: patient oriented x3, tone normal and no meningeal signs Gait exam (Neuro): Normal gait present Extrem: General: Yes normal to inspection MDM - Female Genitourinary MDM Narrative Medical decision making narrative: 52-year-old female with no significant past medical history presenting to the ED complaining of pelvic discomfort, hematuria and yellow vaginal discharge x today. On exam vital signs stable, NAD, nontoxic appearing abdomen soft/nontender, no CVA tenderness. On pelvic exam scant yellowish discharge noted. No vaginal, the CMT or adnexal tenderness/masses. Concern for UTI vs STI. Exam not consistent with PID. Lower suspicion for ovarian torsion/cyst. Low suspicion for appendicitis/diverticulitis or pyelo/nephrolithiasis Plan: UA, STI testing. Patient is agreeable to empiric treatment with IM Rocephin and p.o. doxycycline in the ED. Patient also given persistent p.o. Macrobid Differential Diagnosis Differential diagnosis: Likely urinary tract infection, vaginitis and cystitis Medical Records Attestation: I reviewed the patient's medical records. Lab Data Attestation: I reviewed the patient's lab results. Labs: Lab Results 06/10/22 Range/Units 10:01 Urine Color YELLOW Urine Appearance HAZY Urine pH 6.0 (5.0-8.0) Ur Specific Sebastian 1.020 (1.005-1.025) Urine Protein 1+ H (NEG-TRACE) MG/DL Urine Glucose (UA) NEG (NEG) MG/DL Urine Ketones NEG (NEG) MG/DL Urine Blood 3+ H (NEG) Urine Nitrite NEG (NEG) Ur Leukocyte Esterase 2+ H (NEG) Urine RBC 50-75 H (0) /HPF Urine WBC 76-150 H (0-4) /HPF Ur Squamous Epith Cells NONE /LPF Ur Renal Epithelial Cell 1+ /LPF Urine Bacteria NONE /LPF Discharge Plan Discharge Clinical Impression: Urinary tract infection, Vaginal discharge Patient Disposition: Home, Self-Care Prescriptions: No Action cyclobenzaprine 10 mg tablet 10 mg PO Q8H Qty: 10 0RF prednisone 20 mg tablet 40 mg PO DAILY 5 Days Qty: 10 0RF acetaminophen [Tylenol Extra Strength] 500 mg tablet 1,000 mg PO QID PRN (Reason: fever or pain) Qty: 14 0RF codeine-guaifenesin [Guaifenesin AC] 10-100 mg/5 mL liquid 5 ml PO Q6H PRN (Reason: cold symptoms) Qty: 120 0RF albuterol sulfate 90 mcg/actuation HFA aerosol inhaler 1 inh inhalation QID PRN (Reason: shortness of breath or wheezing) Qty: 8.5 0RF fluticasone propionate [Children's Flonase Allergy Rlf] 50 mcg/actuation spray,suspension 1 spray intranasal BID Qty: 16 0RF Rx Instructions: administer into each nostril benzonatate 100 mg capsule 100 mg PO TID PRN (Reason: cough) Qty: 20 0RF meloxicam 15 mg tablet 15 mg PO DAILY Qty: 20 0RF lisinopril 10 mg tablet 10 mg PO DAILY Qty: 30 0RF Referrals: Physician,Shahram J [Primary Care Provider] - Jake Francis MD [Physician] - 5 days
[2022-06-10] MEDS: cefTRIAXone sodium 500 MG, Lidocaine HCl 1 % MPF 1 ML IM (13:05)
[2022-06-10] MEDS: Nitrofurantoin Monohyd/M-Cryst 100 MG CAPSULE PO (13:06)
[2022-06-10] MEDS: Lidocaine HCl 1 % MPF 2 ML VIAL INFILTRATI (13:06)
--- NOTE | 2022-06-10 13:08 | PC.NURSE ---
pt medicated per order float nurse
[2022-06-10 15:08] LABS: BV Int Neg Control Negative (Negative); BV Int Pos Control Positive (Positive)
[2022-06-10 16:08] LABS: CT PCR NOT DETECTED (Not Detect.); NG PCR NOT DETECTED (Not Detect.)
== END 2022-06-10 13:12 | disposition home or self-care (01) ==
PROVIDERS: Physician Assistant; Emergency Provider Student in an Organized Health Care Education/Training Program
DX: N39.0 Urinary tract infection, site not specified (principal); B95.61 Methicillin susceptible Staphylococcus aureus infection as the cause of diseases classified elsewhere; B95.2 Enterococcus as the cause of diseases classified elsewhere; N89.8 Other specified noninflammatory disorders of vagina
CPT/HCPCS: 81001; 87086; 87088; 87186; 87480; 87491; 87510; 87591; 87660; 96372; 99282; 99284; J0696

== ENCOUNTER 2022-10-31 22:03 | Emergency (ER) | payer OTHER, SELFPAY ==
--- NOTE | 2022-10-31 | ECG_ITS ---
Test Reason : CHEST PAIN Blood Pressure : / mmHG Vent. Rate : 110 BPM Atrial Rate : 110 BPM P-R Int : 144 ms QRS Dur : 076 ms QT Int : 350 ms P-R-T Axes : 072 036 -28 degrees QTc Int : 473 ms Sinus tachycardia with Premature supraventricular complexes and with occasional Premature ventricular complexes Nonspecific ST abnormality Abnormal ECG When compared with ECG of 04-MAY-2022 13:52, Premature ventricular complexes are now Present Premature supraventricular complexes are now Present Vent. rate has increased BY 36 BPM Referred By: Generic ED Physician Electronically Signed By:JD SALGADO
--- NOTE | ~2022-10-31 | XR_ITS ---
EXAMINATION: XR CHEST CLINICAL INFORMATION: Shortness of breath. COMPARISON: Chest radiograph 05/04/2022. TECHNIQUE: Frontal view of the chest was obtained. FINDINGS: Normal appearance of the cardiomediastinal silhouette. No focal airspace opacities, pleural effusions or pneumothorax. No acute osseous abnormalities. The visualized upper abdomen is within normal limits. XR/XR chest 1V IMPRESSION: No acute cardiopulmonary findings.
[2022-10-31 22:06] VITALS: BP 102/68; PULSE 114; RESP 16; TEMP 37.7; O2SAT 97; BMI 27.3
--- NOTE | 2022-10-31 22:28 | ECG_ITS ---
Test Reason : CHEST PAIN Blood Pressure : / mmHG Vent. Rate : 108 BPM Atrial Rate : 108 BPM P-R Int : 118 ms QRS Dur : 078 ms QT Int : 358 ms P-R-T Axes : 069 037 -09 degrees QTc Int : 479 ms Sinus tachycardia with Premature supraventricular complexes Nonspecific ST abnormality Abnormal ECG When compared with ECG of 31-OCT-2022 22:27, Premature ventricular complexes are no longer Present Referred By: Marshall Caba Electronically Signed By:JD SALGADO
[2022-10-31 22:43] LABS: MANUAL DIFF FLAG NO
[2022-10-31 22:45] LABS: Basophils Percent Auto 0.5 % (0-2); Eosinophils Absolute Auto 0.1 X10*3/uL (0.0-0.4); Hematocrit 34.9 % (37.0-47.0); Hemoglobin 11.6 g/dl (12.0-16.0); Imm Gran Abs Auto 0.02 X10*3/uL (0.00-0.03); Imm Gran Pct Auto 0.3 % (0.0-0.4); Lymphocytes Absolute Auto 0.8 X10*3/uL (1.2-4.9); Lymphocytes Percent Auto 11.9 % (20-40); Mean Corpuscular HGB Conc 33.2 g/dl (31.0-35.0); Mean Corpuscular Hemoglobin 27.7 pg (27.0-33.0); Mean Corpuscular Volume 83.3 fL (80.0-98.0); Mean Platelet Volume 10.1 fL (9.4-12.3); Monocytes Absolute Auto 0.4 X10*3/uL (0.1-1.2); Neutrophils Percent Auto 79.3 % (45-73); Platelet Count 344 X10*3/uL (160-400); Red Blood Count 4.19 X10*6/uL (4.20-5.50); Red Cell Distribution Width 12.4 % (11.0-16.0); White Blood Count 6.3 X10*3/uL (4.8-10.8)
[2022-10-31 23:01] LABS: Alanine Aminotransferase 22 U/L (0-31); Albumin Level 4.3 g/dL (3.5-5.0); Alkaline Phosphatase 102 U/L (39-117); Anion Gap 14 (12-20); Aspartate Amino Transferase 24 U/L (5-31); Bilirubin Total 1.2 mg/dL (0.0-1.0); Blood Urea Nitrogen 11 mg/dL (9-16); Calcium 9.2 mg/dL (8.4-10.2); Carbon Dioxide 23 mmol/L (22-29); Chloride 107 mmol/L (96-108); Estimated Glomerular Filt Rate > 60; Glucose Random 123 mg/dL (60-115); Potassium 3.6 mmol/L (3.3-5.1); Sodium 140 mmol/L (135-145); Total Protein 7.2 g/dL (6.5-8.0)
[2022-10-31 23:07] LABS: Troponin-I High Sensitivity < 3.5 ng/L (<3.5-17.0)
[2022-10-31 23:26] LABS: Influenza A PCR NEGATIVE (Negative); Influenza B PCR NEGATIVE (Negative); Resp Syncy Virus RNA Qual PCR NEGATIVE (Negative); SARS COV2 PCR INHOUSE POSITIVE (Negative)
--- NOTE | 2022-11-01 00:39 | ED_ITS ---
HPI - General Adult General Chief complaint: Dyspnea Stated complaint: fever, chest discomfort Time Seen by Provider: 11/01/22 00:24 Source: patient Mode of arrival: ambulatory Limitations: no limitations History of Present Illness HPI narrative: 52-year-old female came in for evaluation of fever, chills, body ache, generalized joint pain, coughing and sneezing. No sick contacts, no recent travel, patient's symptoms started today. Related Data Previous Rx's Medication Instructions Recorded acetaminophen 500 mg tablet 1,000 mg PO QID PRN fever or pain 08/01/21 (Tylenol Extra Strength) #14 tabs albuterol sulfate 90 mcg/actuation 1 inh inhalation QID PRN shortness 08/01/21 aerosol inhaler of breath or wheezing #8.5 grams codeine 10 mg-guaifenesin 100 mg/5 5 ml PO Q6H PRN cold symptoms #120 08/01/21 mL oral liquid (Guaifenesin AC) mL cyclobenzaprine 10 mg tablet 10 mg PO Q8H Muscle spasm #10 tabs 08/01/21 fluticasone propionate 50 1 spray intranasal BID nasal 08/01/21 mcg/actuation nasal congestion #16 grams spray,suspension (Children's Flonase Allergy Relief) prednisone 20 mg tablet 40 mg PO DAILY rash 5 days #10 tabs 08/01/21 benzonatate 100 mg capsule 100 mg PO TID PRN cough #20 caps 11/17/21 lisinopril 10 mg tablet 10 mg PO DAILY #30 tabs 03/23/22 meloxicam 15 mg tablet 15 mg PO DAILY #20 tabs 03/23/22 doxycycline hyclate 100 mg tablet 100 mg PO BID 7 days #14 tabs 06/10/22 nitrofurantoin 100 mg PO Q12H 7 days #14 caps 06/10/22 monohydrate/macrocrystals 100 mg capsule (Macrobid) Allergies Allergy/AdvReac Type Severity Reaction Status Date / Time naproxen [From NAPROSYN] AdvReac Unknown STOMACH Verified 05/04/22 14:10 UPSET Review of Systems Review of Systems: All other systems are reviewed and are negative Constitutional: Reports as per HPI and Reports no additional constitutional complaints Eyes: Reports as per HPI and Reports no additional eye complaints Reports system reviewed and no additional complaints, except as documented Cardiovascular: Reports as per HPI and Reports no additional cardiovascular complaints Respiratory: Reports as per HPI and Reports no additional respiratory complaints Gastrointestinal: Reports as per HPI and Reports no additional gastrointestinal complaints Genitourinary: Reports no additional female genitourinary complaints Musculoskeletal: Reports no additional musculoskeletal complaints Skin/Breast: Reports system reviewed and no additional complaints, except as docu Psychiatric: Reports no additional psychiatric complaints Endocrine: Reports no additional endocrine complaints Hematologic/Lymphatic: Reports no additional hematologic/lymphatic complaints Allergic/Immunologic: Reports no additional allergic/immunologic complaints Reports system reviewed and no additional complaints, except as documented and Reports Abnormal speech present [facility] Social History Social History Advance Directives: No Advance Directives Information Provided: No Physical Exam ED Vital Signs: Vital Signs - 24 hr 10/31/22 22:06 Temperature 100 F Pulse Rate 114 H Respiratory Rate 16 Blood Pressure 102/68 Pulse Oximetry 97 BMI result Body Mass Index 27.3 Vital signs have been reviewed as appeared to be correct. Blood pressure normal. Heart rate elevated. Respiration rate normal. Temperature normal. Oxygen saturation normal. Appearance: Alert. Oriented X3. No acute distress. Head: Normal external exam. Normocephalic. Atraumatic. No Cash signs noted. No raccoon eyes noted Eyes: PERRLA. EOMI. Conjunctiva and sclera normal. Eyelids normal. ENT: TM's Normal. Pharynx normal. Uvula midline. Moist mucous membranes. No trismus noted. No drooling noted. No muffled voice noted. Neck: Normal inspection. Neck supple. FROM. No adenopathy. Thyroid Normal. No meningeal signs. No neck mass noted. CVS: Normal heart rate and rhythm. Heart sound normal. No murmurs noted. Pulses normal throughout. Respiratory: No respiratory distress. Painless inspiration. Breath sounds normal. No wheezes/rales/rhonchi noted. Chest nontender. No accessory muscle usage noted or decreased air movement noted. Abdomen: Soft and nontender. Bowel sounds normal in all 4 quadrants. No distention noted. No organomegaly noted. No visible injury noted. Back: No CVA tenderness. Full range of motion noted. Skin: Skin warm and dry. Normal skin color. Normal skin turgor. No rashes/lesions/lacerations noted. Extremities: No lower extremity edema. Extremities exhibit normal range of motion. Extremities nontender. Neuro: Oriented X 3. Cranial nerve exam: II-XII are grossly intact No motor deficit. No sensory deficit. Reflexes normal. Medical Decision Making Differential Diagnosis Differential Diagnoses: The differential diagnosis associated with the presentation includes (Influenza, RSV, COVID-19 infection, pneumonia, ACS.) Lab Data MDM Lab Attestation statement: I reviewed the patient's lab results. Result Diagrams: 10/31/22 22:36 10/31/22 22:36 Labs: Lab Results 10/31/22 10/31/22 10/31/22 Range/Units 22:36 22:36 22:36 WBC 6.3 (4.8-10.8) X10*3/uL RBC 4.19 L (4.20-5.50) X10*6/uL Hgb 11.6 L (12.0-16.0) g/dl Hct 34.9 L (37.0-47.0) % MCV 83.3 (80.0-98.0) fL MCH 27.7 (27.0-33.0) pg MCHC 33.2 (31.0-35.0) g/dl RDW 12.4 (11.0-16.0) % Plt Count 344 (160-400) X10*3/uL MPV 10.1 (9.4-12.3) fL Immature Gran % (Auto) 0.3 (0.0-0.4) % Neut % (Auto) 79.3 H (45-73) % Lymph % (Auto) 11.9 L (20-40) % Harrison % (Auto) 7.0 (2-11) % Eos % (Auto) 1.0 (0-4) % Baso % (Auto) 0.5 (0-2) % Lymph # (Auto) 0.8 L (1.2-4.9) X10*3/uL Harrison # (Auto) 0.4 (0.1-1.2) X10*3/uL Eos # (Auto) 0.1 (0.0-0.4) X10*3/uL Baso # (Auto) 0.0 (0.0-0.2) X10*3/uL Abs Immat Gran (auto) 0.02 (0.00-0.03) X10*3/uL Absolute Neuts (auto) 5.0 (2.0-8.3) x10*3/uL Absolute Nucleated RBC 0.000 (0.0-0.012) X10*3/uL Nucleated RBC % (auto) 0.0 (0.0-0.2) /100WBC Sodium 140 (135-145) mmol/L Potassium 3.6 (3.3-5.1) mmol/L Chloride 107 (96-108) mmol/L Carbon Dioxide 23 (22-29) mmol/L Anion Gap 14 (12-20) BUN 11 (9-16) mg/dL Creatinine 0.77 (0.5-1.4) mg/dL Estim Creat Clear Calc 81.0 Estimated GFR > 60 Random Glucose 123 H (60-115) mg/dL Calcium 9.2 (8.4-10.2) mg/dL Total Bilirubin 1.2 H (0.0-1.0) mg/dL AST 24 (5-31) U/L ALT 22 (0-31) U/L Alkaline Phosphatase 102 (39-117) U/L Troponin I High Sens < 3.5 (<3.5-17.0) ng/L Total Protein 7.2 (6.5-8.0) g/dL Albumin 4.3 (3.5-5.0) g/dL Influenza Type A (PCR) (Negative) Influenza Type B (PCR) (Negative) RSV RNA Qual (PCR) (Negative) SARS-CoV-2 RNA (RT-PCR) (Negative) 10/31/22 Range/Units 22:36 WBC (4.8-10.8) X10*3/uL RBC (4.20-5.50) X10*6/uL Hgb (12.0-16.0) g/dl Hct (37.0-47.0) % MCV (80.0-98.0) fL MCH (27.0-33.0) pg MCHC (31.0-35.0) g/dl RDW (11.0-16.0) % Plt Count (160-400) X10*3/uL MPV (9.4-12.3) fL Immature Gran % (Auto) (0.0-0.4) % Neut % (Auto) (45-73) % Lymph % (Auto) (20-40) % Harrison % (Auto) (2-11) % Eos % (Auto) (0-4) % Baso % (Auto) (0-2) % Lymph # (Auto) (1.2-4.9) X10*3/uL Harrison # (Auto) (0.1-1.2) X10*3/uL Eos # (Auto) (0.0-0.4) X10*3/uL Baso # (Auto) (0.0-0.2) X10*3/uL Abs Immat Gran (auto) (0.00-0.03) X10*3/uL Absolute Neuts (auto) (2.0-8.3) x10*3/uL Absolute Nucleated RBC (0.0-0.012) X10*3/uL Nucleated RBC % (auto) (0.0-0.2) /100WBC Sodium (135-145) mmol/L Potassium (3.3-5.1) mmol/L Chloride (96-108) mmol/L Carbon Dioxide (22-29) mmol/L Anion Gap (12-20) BUN (9-16) mg/dL Creatinine (0.5-1.4) mg/dL Estim Creat Clear Calc Estimated GFR Random Glucose (60-115) mg/dL Calcium (8.4-10.2) mg/dL Total Bilirubin (0.0-1.0) mg/dL AST (5-31) U/L ALT (0-31) U/L Alkaline Phosphatase (39-117) U/L Troponin I High Sens (<3.5-17.0) ng/L Total Protein (6.5-8.0) g/dL Albumin (3.5-5.0) g/dL Influenza Type A (PCR) NEGATIVE (Negative) Influenza Type B (PCR) NEGATIVE (Negative) RSV RNA Qual (PCR) NEGATIVE (Negative) SARS-CoV-2 RNA (RT-PCR) POSITIVE A (Negative) Independent Interpretation I performed an independent interpretation of an: EKG (Sinus tachycardia at 108 beats per minutes, occasional atrial contractions, short ID interval otherwise unremarkable intervals. No ST-T changes.) and Plain X-Ray (Chest: No acute pathology.) Radiology Impression Discussion of test interpretation with radiology: I have reviewed the radiologist's reading. Discharge Plan Discharge Clinical Impression: COVID-19 virus infection Patient Disposition: Home, Self-Care Instructions: COVID-19 (Coronavirus Disease 2019) (ED) Additional Instructions: Wear face mask at all times, frequent handwashing, keep social distancing, use [id number] Tylenol 500 mg or ibuprofen 200 mg every 6 hours if needed for pain or body ache. Prescriptions: No Action cyclobenzaprine 10 mg tablet 10 mg PO Q8H Qty: 10 0RF prednisone 20 mg tablet 40 mg PO DAILY 5 Days Qty: 10 0RF acetaminophen [Tylenol Extra Strength] 500 mg tablet 1,000 mg PO QID PRN (Reason: fever or pain) Qty: 14 0RF codeine-guaifenesin [Guaifenesin AC] 10-100 mg/5 mL liquid 5 ml PO Q6H PRN (Reason: cold symptoms) Qty: 120 0RF albuterol sulfate 90 mcg/actuation HFA aerosol inhaler 1 inh inhalation QID PRN (Reason: shortness of breath or wheezing) Qty: 8.5 0RF fluticasone propionate [Children's Flonase Allergy Rlf] 50 mcg/actuation spray,suspension 1 spray intranasal BID Qty: 16 0RF Rx Instructions: administer into each nostril benzonatate 100 mg capsule 100 mg PO TID PRN (Reason: cough) Qty: 20 0RF meloxicam 15 mg tablet 15 mg PO DAILY Qty: 20 0RF lisinopril 10 mg tablet 10 mg PO DAILY Qty: 30 0RF doxycycline hyclate 100 mg tablet 100 mg PO BID 7 Days Qty: 14 0RF nitrofurantoin monohyd/m-cryst [Macrobid] 100 mg capsule 100 mg PO Q12H 7 Days Qty: 14 0RF Rx Instructions: must administer with a meal/food Referrals: Physician,Unknown J [Primary Care Provider] - Stand Alone Forms: Work/School Release
== END 2022-11-01 01:06 | disposition home or self-care (01) ==
PROVIDERS: Emergency Provider Emergency Medicine
DX: U07.1 COVID-19 (principal); R50.9 Fever, unspecified
CPT/HCPCS: 0241U; 71045; 80053; 84484; 85025; 93005; 99283

== ENCOUNTER 2023-01-19 16:15 | Emergency (ER) | payer OTHER, SELFPAY ==
--- NOTE | ~2023-01-19 | CT_ITS ---
EXAMINATION: CT thoracic spine wo IV con, CT lumbar spine wo IV con CLINICAL INFORMATION: Thoracic pain. Lumbar spine pain. COMPARISON: Radiographs from today TECHNIQUE: Multidetector volumetric imaging of the thoracic and lumbar spine performed without IV contrast. Coronal and sagittal reformatted images are obtained and reviewed. This CT examination was performed using dose optimization techniques as appropriate, variously including the following: *Automated exposure control *Adjustment of mA and/or kV according to patient size (this includes techniques or standardized protocols for targeted exams where dose is matched to indication/reason for exam; i.e. extremities or head) *Use of iterative reconstruction technique DLP: 1159 mGy-cm FINDINGS: No fracture or subluxation. Vertebral body height and alignment maintained with small endplate osteophytes throughout the thoracolumbar spine. Mild disc space narrowing seen at L4-L5 and L5-S1. Vacuum disc phenomenon at L5-S1. The posterior elements are intact. The sacroiliac joints are symmetric. The visualized sacrum is intact. The visualized lungs are clear. The visualized mediastinum shows no acute abnormality. The visualized portion of the abdomen shows no acute finding. No lymphadenopathy. IUD in the uterus. The paraspinal musculature is unremarkable. Although evaluation of the spinal levels is limited on noncontrast CT, there is evidence of disc bulge with ligamentum flavum hypertrophy at L3-L4 and L4-L5 resulting in narrowing of the spinal canal at these levels. CT/CT thoracic spine wo IV con IMPRESSION: 1. Mild degenerative changes throughout the thoracolumbar spine. 2. Disc bulge with ligamentum flavum hypertrophy at L3-L4 and L4-L5 resulting in narrowing of the spinal canal at these levels.
--- NOTE | ~2023-01-19 | XR_ITS ---
Exams: Lumbar spine 3 views dorsal spine 2 views HISTORY: Pain status post lifting TECHNIQUE: As above nonweightbearing FINDINGS: Diffuse endplate spurring throughout the lumbar spine consistent with degenerative disc disease. Moderate disc space narrowing L5 and S1. IUD in place. No gross migration. No fracture or spondylolysis. Dorsal spine imaging demonstrates similar generalized endplate spurring but preservation of vertebral heights and disc spaces. No subluxation. XR/XR lumbar spine 2-3V IMPRESSION: Degenerative disc disease as above. No fracture.
--- NOTE | ~2023-01-19 | XR_ITS ---
Exams: Lumbar spine 3 views dorsal spine 2 views HISTORY: Pain status post lifting TECHNIQUE: As above nonweightbearing FINDINGS: Diffuse endplate spurring throughout the lumbar spine consistent with degenerative disc disease. Moderate disc space narrowing L5 and S1. IUD in place. No gross migration. No fracture or spondylolysis. Dorsal spine imaging demonstrates similar generalized endplate spurring but preservation of vertebral heights and disc spaces. No subluxation. XR/XR thoracic spine 3V IMPRESSION: Degenerative disc disease as above. No fracture.
--- NOTE | ~2023-01-19 | CT_ITS ---
EXAMINATION: CT thoracic spine wo IV con, CT lumbar spine wo IV con CLINICAL INFORMATION: Thoracic pain. Lumbar spine pain. COMPARISON: Radiographs from today TECHNIQUE: Multidetector volumetric imaging of the thoracic and lumbar spine performed without IV contrast. Coronal and sagittal reformatted images are obtained and reviewed. This CT examination was performed using dose optimization techniques as appropriate, variously including the following: *Automated exposure control *Adjustment of mA and/or kV according to patient size (this includes techniques or standardized protocols for targeted exams where dose is matched to indication/reason for exam; i.e. extremities or head) *Use of iterative reconstruction technique DLP: 1159 mGy-cm FINDINGS: No fracture or subluxation. Vertebral body height and alignment maintained with small endplate osteophytes throughout the thoracolumbar spine. Mild disc space narrowing seen at L4-L5 and L5-S1. Vacuum disc phenomenon at L5-S1. The posterior elements are intact. The sacroiliac joints are symmetric. The visualized sacrum is intact. The visualized lungs are clear. The visualized mediastinum shows no acute abnormality. The visualized portion of the abdomen shows no acute finding. No lymphadenopathy. IUD in the uterus. The paraspinal musculature is unremarkable. Although evaluation of the spinal levels is limited on noncontrast CT, there is evidence of disc bulge with ligamentum flavum hypertrophy at L3-L4 and L4-L5 resulting in narrowing of the spinal canal at these levels. CT/CT lumbar spine wo IV con IMPRESSION: 1. Mild degenerative changes throughout the thoracolumbar spine. 2. Disc bulge with ligamentum flavum hypertrophy at L3-L4 and L4-L5 resulting in narrowing of the spinal canal at these levels.
[2023-01-19 16:47] VITALS: BP 122/82; PULSE 88; O2SAT 98
--- NOTE | 2023-01-19 16:52 | ED_ITS ---
HPI - Back Pain/Injury General Chief Complaint: Back Pain/Injury <KANNAN Coffey - Last Filed: 01/19/23 16:57> Stated Complaint: back pain <KANNAN Coffey Last Filed: 01/19/23 16:57> Time Seen by Provider: 01/19/23 19:52 <KANNAN Coffey Last Filed: 01/19/23 16:57> Source: patient <KANNAN Carreon Last Filed: 01/19/23 22:52> Mode of arrival: ambulatory <KANNAN Carreon Last Filed: 01/19/23 22:52> Limitations: no limitations <KANNAN Carreon Last Filed: 01/19/23 22:52> History of Present Illness HPI Narrative: 52-year-old female history of back pain presents with pain throughout entire back sparing the middle patient tells me she was heavy lifting at work, tells me she was moving boxes that weighed approximately 50 lb a piece she moved up to 3 boxes at a time in suddenly started having severe back pain. Patient tells me it is extremely painful to move. She tells me she is had back pain before however this is worse. She denies urinary/bowel incontinence/retention, saddle paresthesias, weakness, numbness, tingling, chest pain, shortness of breath, fevers, chills <KANNAN Carreon Last Filed: 01/19/23 22:52> Related Data Home Medications: Previous Rx's Medication Instructions Recorded acetaminophen 500 mg tablet 1,000 mg PO QID PRN fever or pain 08/01/21 (Tylenol Extra Strength) #14 tabs albuterol sulfate 90 mcg/actuation 1 inh inhalation QID PRN shortness 08/01/21 aerosol inhaler of breath or wheezing #8.5 grams codeine 10 mg-guaifenesin 100 mg/5 5 ml PO Q6H PRN cold symptoms #120 08/01/21 mL oral liquid (Guaifenesin AC) mL cyclobenzaprine 10 mg tablet 10 mg PO Q8H Muscle spasm #10 tabs 08/01/21 fluticasone propionate 50 1 spray intranasal BID nasal 08/01/21 mcg/actuation nasal congestion #16 grams spray,suspension (Children's Flonase Allergy Relief) prednisone 20 mg tablet 40 mg PO DAILY rash 5 days #10 tabs 08/01/21 benzonatate 100 mg capsule 100 mg PO TID PRN cough #20 caps 11/17/21 lisinopril 10 mg tablet 10 mg PO DAILY #30 tabs 03/23/22 meloxicam 15 mg tablet 15 mg PO DAILY #20 tabs 03/23/22 doxycycline hyclate 100 mg tablet 100 mg PO BID 7 days #14 tabs 06/10/22 nitrofurantoin 100 mg PO Q12H 7 days #14 caps 06/10/22 monohydrate/macrocrystals 100 mg capsule (Macrobid) acetaminophen 500 mg capsule 1,000 mg PO Q6H PRN pain #30 caps 01/19/23 lidocaine 5 % topical patch 1 patch topical DAILY PRN pain #15 01/19/23 ea morphine 15 mg immediate release 15 mg PO Q6H PRN pain 5 days #10 01/19/23 tablet tabs prednisone 20 mg tablet 40 mg PO DAILY 5 days #10 tabs 01/19/23 <KANNAN Coffey - Last Filed: 01/19/23 16:57> Allergies/Adverse Reactions: Allergies Allergy/AdvReac Type Severity Reaction Status Date / Time naproxen [From NAPROSYN] AdvReac Unknown STOMACH Verified 05/04/22 14:10 UPSET <KANNAN Coffey Last Filed: 01/19/23 16:57> Review of Systems Review of Systems: Constitutional : No Weight loss, No Fever, No Chills, ENT/Mouth : No Hearing loss, No Ear Pain, No Nasal Congestion, No Sinus Pain, No Hoarseness, No sore throat, No Rhinorrhea, No Swallowing Difficulty Cardiovascular : No Chest Pain, No SOB Respiratory : No Cough, No Dyspnea Gastrointestinal : No Nausea, No Vomiting, No Diarrhea, No abdominal Pain, No Hematochezia, No Melena Genitourinary : No Dysuria, No Urinary Frequency, No Hematuria, No Urinary Incontinence, Musculoskeletal : positive back pain Skin : No Skin Lesions, No rash Neuro : No Weakness, No Numbness, No Paresthesias, no loss of bowel or bladder incontinence, no saddle anesthesia All other systems reviewed and are negative <KANNAN Carreon Last Filed: 01/19/23 22:52> Yes all other systems are reviewed and are negative <KANNAN Carreon - Last Filed: 01/19/23 22:52> [facility] Past Medical History Attestation statement: The following information was validated with the patient. <KANNAN Carreon - Last Filed: 01/19/23 22:52> Source: old records reviewed and nursing notes reviewed <KANNAN Carreon - Last Filed: 01/19/23 22:52> Social History Social History: Social History Advance Directives: No Advance Directives Information Provided: No <KANNAN Coffey - Last Filed: 01/19/23 16:57> Physical Exam Vital Signs: Vital Signs: Last Vital Signs Temp 98.6 F 01/19/23 20:39 Pulse 82 01/19/23 20:39 Resp 12 01/19/23 20:39 BP 118/77 01/19/23 20:39 Pulse Ox 100 01/19/23 20:39 O2 Del Method Room Air 01/19/23 20:39 BMI result Body Mass Index 27.3 <KANNAN Coffey - Last Filed: 01/19/23 16:57> Vital Signs: Last Vital Signs Temp 98.6 F 01/19/23 20:39 Pulse 82 01/19/23 20:39 Resp 12 01/19/23 20:39 BP 118/77 01/19/23 20:39 Pulse Ox 100 01/19/23 20:39 O2 Del Method Room Air 01/19/23 20:39 BMI result Body Mass Index 27.3 vss <KANNAN Carreon - Last Filed: 01/19/23 22:52> Appearance: Alert.? Oriented X3.? No acute distress.? Head: Normocephalic, atraumatic, no step-offs or deformities Eyes: Pupils equal, round and reactive to light.? ENT: Pharynx normal.??External ears normal, TMs normal bilaterally and EAC's normal. No pain with manipulation of external ears bilaterally. No mastoid tenderness. Neck: Normal inspection.? Neck supple.? CVS: Normal heart rate and rhythm.? Pulses normal.? Respiratory: No respiratory distress.? Breath sounds normal.? Abdomen: Soft and nontender.? Skin: Skin warm and dry.? Normal skin color.? Normal skin turgor.? Extremities: No lower extremity edema.? No calf ttp. 5/5 strength to bilateral upper and lower extremities 2+ patellar reflexes. Back: No midline tenderness, no C-spine tenderness, full range of motion, no CVA tenderness bilaterally. Bilateral paraspinous tenderness in the thoracic and lumbar region. No midline tenderness. Positive straight leg raise bilaterally. Neuro: Oriented X 3.? No motor deficit.? No sensory deficit. CN 2-12 intac. Ambulating w/ steady gait normal coordination. No saddle paresthesias. <KANNAN Carreon - Last Filed: 01/19/23 22:52> Course Course Course Narrative: RME-- 52yo F w/PMHx asthma BIBA c/o acute onset back pain s/p picking up heavy box at work [employer]. Admits to radiation down bilateral lower extremities. Denies direct injury/trauma fall, urinary,/retention, fever No midline spinous tenderness. Diffuse paraspinal/MSK tenderness noted. Patient in wheelchair in triage X-rays ordered. Patient will need pain control <KANNAN Coffey - Last Filed: 01/19/23 16:57> Reevaluation(s) Reevaluation #1: X-ray of thoracic and lumbar spine with degenerative disc disease no fractures. <KANNAN Carreon Last Filed: 01/19/23 22:52> Time: 20:28 <KANNAN Carreon Last Filed: 01/19/23 22:52> Reevaluation #2: CT scans done and pending. Patient ambulating with steady gait normal coordination, feeling better. Will give small dose of Dilaudid. Patient will likely be discharged home <KANNAN Carreon Last Filed: 01/19/23 22:52> Time: 22:27 <KANNAN Carreon Last Filed: 01/19/23 22:52> Reevaluation #3: CT of thoracic and lumbar spine with degenerative changes throughout the thoracolumbar spine. Disc bulge with ligamentum flavum hypertrophy L3-L4 and L4-L5 with narrowing of the spinal canal at these levels. Again there is no signs of cord compression, no signs of cauda equina. Patient ambulatory with normal bowel habits in urination. Patient to be discharged home with Spine and Sport follow-up. Will discharge home on Lidoderm patch, prednisone, morphine. Educated patient on diagnosis and treatment plan, answered all question, patient verbalizes understanding. At this time patient will be discharged home, advised to return with new or worsening symptoms. Educated on worrisome signs and symptoms and when to return. At this time I feel comfortable discharge home. <KANNNA Carreon - Last Filed: 01/19/23 22:52> Time: 22:50 <KANNAN Carreon - Last Filed: 01/19/23 22:52> Medications Administered Discontinued Medications Generic Name Dose Route Start Last Admin Trade Name Freq PRN Reason Stop Dose Admin Dexamethasone Sodium Phosphate 8 mg 01/19/23 20:25 01/19/23 20:46 Dexamethasone Sod Phosphate 4 Mg/Ml Vial IVPUSH 01/19/23 20:26 8 mg ONCE ONE Administration Hydromorphone HCl 0.5 mg 01/19/23 22:08 01/19/23 22:21 Hydromorphone Hcl 0.5 Mg/0.5 Ml Syringe IVPUSH 01/19/23 22:09 0.5 mg ONCE ONE Administration Protocol Lidocaine 2 patch 01/19/23 20:26 01/19/23 20:45 Lidocaine 4 % Patch Adh..Patch TRANSDERMA 01/19/23 20:27 2 patch ONCE ONE Administration Protocol Morphine Sulfate 4 mg 01/19/23 20:25 01/19/23 20:46 Morphine Sulfate 4 Mg/Ml Cartridge IVPUSH 01/19/23 20:26 4 mg ONCE ONE Administration Protocol <KANNAN Coffey - Last Filed: 01/19/23 16:57> Medications Administered Discontinued Medications Generic Name Dose Route Start Last Admin Trade Name Freq PRN Reason Stop Dose Admin Dexamethasone Sodium Phosphate 8 mg 01/19/23 20:25 01/19/23 20:46 Dexamethasone Sod Phosphate 4 Mg/Ml Vial IVPUSH 01/19/23 20:26 8 mg ONCE ONE Administration Hydromorphone HCl 0.5 mg 01/19/23 22:08 01/19/23 22:21 Hydromorphone Hcl 0.5 Mg/0.5 Ml Syringe IVPUSH 01/19/23 22:09 0.5 mg ONCE ONE Administration Protocol Lidocaine 2 patch 01/19/23 20:26 01/19/23 20:45 Lidocaine 4 % Patch Adh..Patch TRANSDERMA 01/19/23 20:27 2 patch ONCE ONE Administration Protocol Morphine Sulfate 4 mg 01/19/23 20:25 01/19/23 20:46 Morphine Sulfate 4 Mg/Ml Cartridge IVPUSH 01/19/23 20:26 4 mg ONCE ONE Administration Protocol <KANNAN Carreon - Last Filed: 01/19/23 22:52> Medical Decision Making Medical Decision Making [facility] Narrative: 2020 52-year-old female presents with diffuse back pain status post heavy lifting at work earlier today. Physical exam with bilateral paraspinous tenderness in the thoracic and lumbar region. No midline tenderness. Positive straight leg raise bilaterally. No saddle paresthesias. 2+ patellar reflexes equal bilateral. Concerns for lumbar and thoracic paraspinous spasms. Unlikely cauda equina, epidural abscess. Other differentials include herniated disc. Imaging was obtained from triage pending. Will medicate for pain <KANNAN Carreon - Last Filed: 01/19/23 22:52> Differential Diagnosis Differential Diagnoses: The differential diagnosis associated with the presentation includes <KANNAN Carreon - Last Filed: 01/19/23 22:52> bilateral paraspinous tenderness in the thoracic and lumbar region. No midline tenderness. Positive straight leg raise bilaterally. <KANNAN Carreon - Last Filed: 01/19/23 22:52> Admission/Observation Consideration of admission/observation: Escalation of care including admission/observation considered <KANNAN Carreon - Last Filed: 01/19/23 22:52> Unlikely <KANNAN Carreon - Last Filed: 01/19/23 22:52> Lab Data [facility] Lab Attestation statement: I reviewed the patient's lab results. <KANNAN Carreon - Last Filed: 01/19/23 22:52> Independent Interpretation I performed an independent interpretation of an: Plain X-Ray (X-ray of thoracic and lumbar spine with degenerative disc disease.) <KANNAN Carreon - Last Filed: 01/19/23 22:52> Radiology Impression Discussion of test interpretation with radiology: I have reviewed the radiologist's reading. <KANNAN Carreon - Last Filed: 01/19/23 22:52> Core Measures AMI core measures followed: Yes <KANNAN Carreon - Last Filed: 01/19/23 22:52> Measure exclusions: not indicated <KANNAN Carreon - Last Filed: 01/19/23 22:52> Critical Care Time Critical Care Time Critical Care Time: No <KANNAN Carreon - Last Filed: 01/19/23 22:52> Discharge Plan Discharge Clinical Impression: Back pain, Lumbar disc herniation <KANNAN Coffey - Last Filed: 01/19/23 16:57> Patient Disposition: Home, Self-Care <KANNAN Coffey - Last Filed: 01/19/23 16:57> Instructions: Back Pain (ED) <KANNAN Coffey - Last Filed: 01/19/23 16:57> Additional Instructions: Take your medications as prescribed. If you were prescribed antibiotics today, it is important that you take your medication to their entirety, do not skip any doses, do not finish them early. Follow-up with your primary care provider this week. Return to the emergency department with new or worsening symptoms. Such as fevers, chills, chest pain, shortness of breath, nausea, vomiting, dizziness, headache, vision changes, lethargy loss of sensation to the upper lower extremities, loss of control of stool or urine, numbness or tingling In case of emergency call 911 CT/CT thoracic spine wo IV con IMPRESSION: 1.? Mild degenerative changes throughout the thoracolumbar spine. 2.? Disc bulge with ligamentum flavum hypertrophy at L3-L4 and L4-L5 resulting in narrowing of the spinal canal at these levels. ? <KANNAN Coffey - Last Filed: 01/19/23 16:57> Prescriptions: New morphine 15 mg tablet 15 mg PO Q6H PRN (Reason: pain) 5 Days Qty: 10 0RF Rx Instructions: Partial Fill upon patient request. lidocaine 5 % adhesive patch,medicated 1 patch topical DAILY PRN (Reason: pain) Qty: 15 0RF Rx Instructions: leave on most painful area for up to 12 hrs prednisone 20 mg tablet 40 mg PO DAILY 5 Days Qty: 10 0RF acetaminophen 500 mg capsule 1,000 mg PO Q6H PRN (Reason: pain) Qty: 30 0RF No Action cyclobenzaprine 10 mg tablet 10 mg PO Q8H Qty: 10 0RF prednisone 20 mg tablet 40 mg PO DAILY 5 Days Qty: 10 0RF acetaminophen [Tylenol Extra Strength] 500 mg tablet 1,000 mg PO QID PRN (Reason: fever or pain) Qty: 14 0RF codeine-guaifenesin [Guaifenesin AC] 10-100 mg/5 mL liquid 5 ml PO Q6H PRN (Reason: cold symptoms) Qty: 120 0RF albuterol sulfate 90 mcg/actuation HFA aerosol inhaler 1 inh inhalation QID PRN (Reason: shortness of breath or wheezing) Qty: 8.5 0RF fluticasone propionate [Children's Flonase Allergy Rlf] 50 mcg/actuation spray,suspension 1 spray intranasal BID Qty: 16 0RF Rx Instructions: administer into each nostril benzonatate 100 mg capsule 100 mg PO TID PRN (Reason: cough) Qty: 20 0RF meloxicam 15 mg tablet 15 mg PO DAILY Qty: 20 0RF lisinopril 10 mg tablet 10 mg PO DAILY Qty: 30 0RF doxycycline hyclate 100 mg tablet 100 mg PO BID 7 Days Qty: 14 0RF nitrofurantoin monohyd/m-cryst [Macrobid] 100 mg capsule 100 mg PO Q12H 7 Days Qty: 14 0RF Rx Instructions: must administer with a meal/food <KANNAN Coffey - Last Filed: 01/19/23 16:57> Referrals: [facility] [Provider Group] - 2 days ED Physician,Generic [Physician] - 2 days <KANNAN Coffey - Last Filed: 01/19/23 16:57> Stand Alone Forms: Work/School Release <KANNAN Coffey - Last Filed: 01/19/23 16:57>
[2023-01-19 16:54] VITALS: BP 131/69; PULSE 91; RESP 16; TEMP 36.6; O2SAT 99; BMI 27.3
[2023-01-19 20:39] VITALS: BP 118/77; PULSE 82; RESP 12; TEMP 37; O2SAT 100
[2023-01-19] MEDS: Lidocaine 4 % Patch ADH..PATCH 2 PATCH TRANSDERMA (20:45)
[2023-01-19] MEDS: dexAMETHasone sod phosphate 4 MG/ML VIAL 8 MG IVPUSH (20:46)
[2023-01-19] MEDS: Morphine Sulfate 4 MG/ML CARTRIDGE IVPUSH (20:46)
[2023-01-19] MEDS: HYDROmorphone HCl 0.5 MG/0.5 ML SYRINGE IVPUSH (22:21)
[2023-01-19 23:02] VITALS: BP 100/66; PULSE 82; RESP 14; TEMP 36.7; O2SAT 99
[2023-01-19] MEDS: Acetaminophen 325 MG TABLET 975 MG PO (23:03)
--- NOTE | 2023-01-19 23:10 | PC.NURSE ---
IV line removed with no complications. Pt tolerated well. Discharge instructions reviewed with pt. Pt verbalizes understanding.
== END 2023-01-19 23:10 | disposition home or self-care (01) ==
PROVIDERS: Emergency Provider Emergency Medicine
DX: S39.92XA Unspecified injury of lower back, initial encounter (principal); M51.26 Other intervertebral disc displacement, lumbar region; X50.0XXA Overexertion from strenuous movement or load, initial encounter; X50.9XXA Other and unspecified overexertion or strenuous movements or postures, initial encounter; Y93.9 Activity, unspecified; Y92.9 Unspecified place or not applicable; Y99.0 Civilian activity done for income or pay; Z79.899 Other long term (current) drug therapy
CPT/HCPCS: 72072; 72100; 72128; 72131; 96374; 96375; 99284; J1100; J1170; J2270

== ENCOUNTER 2023-01-22 14:33 | Emergency (ER) | payer OTHER, SELFPAY ==
[2023-01-22 14:55] VITALS: BP 122/81; PULSE 90; RESP 18; TEMP 36.9; O2SAT 99; BMI 27.3
--- NOTE | 2023-01-22 15:18 | ED_ITS ---
HPI - General Adult General Chief complaint: Back Pain/Injury Stated complaint: back inj at work recheck Time Seen by Provider: 01/22/23 15:11 Source: patient and interpreter and translator Mode of arrival: ambulatory Limitations: language barrier History of Present Illness HPI narrative: Patient is a 52 year old assigned female at with a history of asthma presenting to the emergency department today with low back pain. Patient states that she hurt her back on 01/19/2023 and was seen here where she was given medication to go home with that makes her sick. Patient states that she would like different pain medication as her back continues to hurt. Patient denies any dizziness, lightheadedness, abdominal pain, nausea, vomiting, fever, chills, blurry vision, double vision, loss of vision, chest pain, difficulty breathing, shortness of breath, night sweats, pain with urination, increased urinary frequency, increased urinary urgency, blood in her urine or stool, syncope or a near syncopal episode, bowel incontinence, bladder incontinence, bowel retention, bladder retention, or any other complaints at this time. Onset (ago): day(s) (3) Location: back Radiation: non-radiation Severity: moderate Severity scale (1-10): 4 Quality: aching Pain Consistency: constant Relieving factors: none Exacerbating factors: none Associated symptoms: denies other symptoms Related Data Previous Rx's Medication Instructions Recorded acetaminophen 500 mg tablet 1,000 mg PO QID PRN fever or pain 08/01/21 (Tylenol Extra Strength) #14 tabs albuterol sulfate 90 mcg/actuation 1 inh inhalation QID PRN shortness 08/01/21 aerosol inhaler of breath or wheezing #8.5 grams codeine 10 mg-guaifenesin 100 mg/5 5 ml PO Q6H PRN cold symptoms #120 08/01/21 mL oral liquid (Guaifenesin AC) mL cyclobenzaprine 10 mg tablet 10 mg PO Q8H Muscle spasm #10 tabs 08/01/21 fluticasone propionate 50 1 spray intranasal BID nasal 08/01/21 mcg/actuation nasal congestion #16 grams spray,suspension (Children's Flonase Allergy Relief) prednisone 20 mg tablet 40 mg PO DAILY rash 5 days #10 tabs 08/01/21 benzonatate 100 mg capsule 100 mg PO TID PRN cough #20 caps 11/17/21 lisinopril 10 mg tablet 10 mg PO DAILY #30 tabs 03/23/22 meloxicam 15 mg tablet 15 mg PO DAILY #20 tabs 03/23/22 doxycycline hyclate 100 mg tablet 100 mg PO BID 7 days #14 tabs 06/10/22 nitrofurantoin 100 mg PO Q12H 7 days #14 caps 06/10/22 monohydrate/macrocrystals 100 mg capsule (Macrobid) acetaminophen 500 mg capsule 1,000 mg PO Q6H PRN pain #30 caps 01/19/23 lidocaine 5 % topical patch 1 patch topical DAILY PRN pain #15 01/19/23 ea morphine 15 mg immediate release 15 mg PO Q6H PRN pain 5 days #10 01/19/23 tablet tabs prednisone 20 mg tablet 40 mg PO DAILY 5 days #10 tabs 01/19/23 cyclobenzaprine 5 mg tablet 5 mg PO TID PRN back pain 7 days 01/22/23 #21 tabs Allergies Allergy/AdvReac Type Severity Reaction Status Date / Time naproxen [From NAPROSYN] AdvReac Unknown STOMACH Verified 05/04/22 14:10 UPSET Review of Systems Constitutional: Constitutional: Reports no additional constitutional complaints, Denies chills, Denies fever(s) and Denies night sweats Eyes: Eyes: Reports no additional eye complaints, Denies blurry vision, Denies change in vision, Denies diplopia, Denies eye discharge, Denies loss of vision and Denies eye pain ENT: Denies dizziness Cardiovascular: Cardiovascular: Reports no additional cardiovascular c omplaints, Denies chest pain, Denies lightheadedness, Denies Loss of Consciousness and Denies dyspnea Respiratory: Respiratory: Reports no additional respiratory complaints and Denies dyspnea Gastrointestinal: Gastrointestinal: Reports no additional gastrointestinal complaints, Denies abdominal pain, Denies melena, Denies hematochezia, Denies change in bowel habits and Denies change in stool character Genitourinary: Genitourinary: Denies hematuria, Denies urinary frequency, Denies dysuria, Denies urinary incontinence, Denies urinary hesitancy and Denies urinary urgency Musculoskeletal: Musculoskeletal: Reports no additional musculoskeletal complaints, Reports back pain, Denies numbness and Denies tingling Neurologic: Denies dizziness, Denies loss of vision, Denies numbness and Denies tingling Psychiatric: Psychiatric: Reports no additional psychiatric complaints Endocrine: Endocrine: Reports no additional endocrine complaints Hematologic/Lymphatic: Hematologic/Lymphatic: Reports no additional hematologic/lymphatic complaints Allergic/Immunologic: Allergic/Immunologic: Reports no additional allergic/immunologic complaints PMFSH Past Medical History Attestation statement: The following information was validated with the patient. Source: old records reviewed and nursing notes reviewed Social History Social History Advance Directives: No Advance Directives Information Provided: No Physical Exam ED Vital Signs: Vital Signs - 24 hr 01/22/23 14:55 Temperature 98.4 F Pulse Rate 90 Respiratory Rate 18 Blood Pressure 122/81 Pulse Oximetry 99 Oxygen Delivery Method Room Air BMI result Body Mass Index 27.3 Const General: cooperative, no acute distress, alert and awake Nutritional Appearance: well nourished Orientation/consciousness: patient oriented x3 Limitations: no limitations HENMT Head: Yes normal to inspection and Yes atraumatic Ears: hearing grossly normal bilaterally and external ears normal General nose exam: Normal external nose present, no nasal discharge noted and no epistaxis Face and sinus: Yes normal facial exam, No abrasion and No laceration Mouth: Normal oral and palatal mucosa present, no drooling and no muffled voice Eyes General: appearance normal, both eyes and all related structures Periorbital: periorbital findings normal Eyelids: Yes eyelids normal Conjunctivae: conjunctivae normal Pupils: Equal, round and reactive pupils present EOM: EOMs intact bilaterally Neck Neck: Yes normal visual inspection, Yes full ROM and Yes no lymphadenopathy Chest Chest palpation & inspection: normal inspection of the chest Resp Effort & Inspection: normal respiratory effort and able to speak in complete sentences Auscultation: clear to auscultation bilaterally Cardio Rate: regular rate Rhythm: regular rhythm GI Inspection: Yes normal to inspection Palpation (GI): Soft to palpation, not firm, nontender and no guarding General: Yes no CVA tenderness Back/Spine/Pelvis Back: no CVA tenderness Cervical Spine: normal cervical lordosis and cervical ROM normal Thoracic/Lumbar Spine: thoracic and lumbar spine normal to inspection and th oraco-lumbar ROM normal Neuro General: patient oriented x3 and moves all extremities Cranial nerves: Yes Equal, round and reactive pupils present Cognition (Neuro): normal cognition Motor exam (neuro): 5/5 motor strength present throughout Sensory Exam: Normal double simultaneous stimulation for sensation Coordination: [id number] test normal Extrem General: Yes normal to inspection, Yes full ROM and Yes capillary refill normal Psych Appearance: grossly normal Mental Status: mental status grossly normal Affect: normal affect Attitude: cooperative Thought process: Normal thought process present Thought content: Normal thought content present Insight: Good insight present (Psych) Medications Administered Discontinued Medications Generic Name Dose Route Start Last Admin Trade Name Freq PRN Reason Stop Dose Admin Cyclobenzaprine HCl 5 mg 01/22/23 15:37 01/22/23 15:44 Cyclobenzaprine Hcl 5 Mg Tablet PO 01/22/23 15:38 5 mg ONCE ONE Administration Medical Decision Making Medical Decision Making MDM Narrative: Patient is a 52 year old assigned female at with a history of asthma presenting to the emergency department today with back pain. Patient's physical exam was unremarkable. I explained my physical exam findings to the patient. I answered all questions asked by the patient. Patient received PO Flexeril which she stated helped her symptoms significantly. I stressed the importance of the patient taking her medication as prescribed. I stressed the importance of the patient following up with her primary care provider and a customer solutions specialist. I stressed the importance of the patient returning to the emergency department immediately if her symptoms were to worsen or if she were to develop any dizziness, shortness of breath, difficulty breathing, chest pain, blurry vision, loss of vision, nausea, vomiting, abdominal pain, fever, chills, back pain, or any other complaints. Patient verbalized agreement and understanding with this treatment plan and discharge. Differential Diagnosis Differential Diagnoses: The differential diagnosis associated with the presentation includes back pain Discharge Plan Discharge Clinical Impression: Strain of lumbar region Patient Disposition: Home, Self-Care Instructions: Low Back Strain (ED), Safe Disposal of Narcotics (ED) Additional Instructions: Follow up with your primary care provider and a customer solutions specialist. Return to the emergency department immediately if your symptoms worsen or if you develop any dizziness, shortness of breath, difficulty breathing, chest pain, blurry vision, loss of vision, nausea, vomiting, abdominal pain, fever, chills, back pain, or any other complaints. Ruth Ann un seguimiento con thompson proveedor de atenci?n primaria y un especialista en [place] vertebral. Regrese al departamento de emergencias de inmediato si mana s?ntomas empeoran o si presenta mareos, falta de aire, dificultad para respirar, dolor de pecho, visi?n borrosa, p?rdida de la visi?n, n?useas, v?mitos, dolor abdominal, fiebre, escalofr?os, dolor de espalda o cualquier otras quejas. Prescriptions: New cyclobenzaprine 5 mg tablet 5 mg PO TID PRN (Reason: back pain) 7 Days Qty: 21 0RF No Action cyclobenzaprine 10 mg tablet 10 mg PO Q8H Qty: 10 0RF prednisone 20 mg tablet 40 mg PO DAILY 5 Days Qty: 10 0RF acetaminophen [Tylenol Extra Strength] 500 mg tablet 1,000 mg PO QID PRN (Reason: fever or pain) Qty: 14 0RF codeine-guaifenesin [Guaifenesin AC] 10-100 mg/5 mL liquid 5 ml PO Q6H PRN (Reason: cold symptoms) Qty: 120 0RF albuterol sulfate 90 mcg/actuation HFA aerosol inhaler 1 inh inhalation QID PRN (Reason: shortness of breath or wheezing) Qty: 8.5 0RF fluticasone propionate [Children's Flonase Allergy Rlf] 50 mcg/actuation spray,suspension 1 spray intranasal BID Qty: 16 0RF Rx Instructions: administer into each nostril benzonatate 100 mg capsule 100 mg PO TID PRN (Reason: cough) Qty: 20 0RF meloxicam 15 mg tablet 15 mg PO DAILY Qty: 20 0RF lisinopril 10 mg tablet 10 mg PO DAILY Qty: 30 0RF doxycycline hyclate 100 mg tablet 100 mg PO BID 7 Days Qty: 14 0RF nitrofurantoin monohyd/m-cryst [Macrobid] 100 mg capsule 100 mg PO Q12H 7 Days Qty: 14 0RF Rx Instructions: must administer with a meal/food morphine 15 mg tablet 15 mg PO Q6H PRN (Reason: pain) 5 Days Qty: 10 0RF Rx Instructions: Partial Fill upon patient request. lidocaine 5 % adhesive patch,medicated 1 patch topical DAILY PRN (Reason: pain) Qty: 15 0RF Rx Instructions: leave on most painful area for up to 12 hrs prednisone 20 mg tablet 40 mg PO DAILY 5 Days Qty: 10 0RF acetaminophen 500 mg capsule 1,000 mg PO Q6H PRN (Reason: pain) Qty: 30 0RF Referrals: [facility] Family Medicine [Provider Group] (Call to establish and follow up with a primary care provider. If you already have a primary care provider, please follow up with them. Llame para establecer y hacer un seguimiento con un proveedor de atenci?n primaria. Si ya tiene un proveedor de atenci?n primaria, ruth ann un seguimiento con ?l.) [facility] Primary Care, [facility] [Provider Group] (Call to establish and follow up with a primary care provider. If you already have a primary care provider, please follow up with them. Llame para establecer y hacer un seguimiento con un proveedor de atenci?n prim aria. Si ya tiene un proveedor de atenci?n primaria, ruth ann un seguimiento con ?l.) [facility] Primary CareSof[facility] [Provider Group] (Call to establish and follow up with a primary care provider. If you already have a primary care provider, please follow up with them. Llame para establecer y hacer un seguimiento con un proveedor de atenci?n primaria. Si ya tiene un proveedor de atenci?n primaria, ruth ann un seguimiento con ?l.) [facility] [Provider Group] (Call to establish and follow up with a customer solutions specialist. Llame para establecer y hacer un seguimiento con un especialista en [place] vertebral.) Stand Alone Forms: Work/School Release Interventions: ED Discharge Assessment Last Done: 01/22/23 15:54 Discharge Date/Time: 01/22/23 15:54 Print Language: Maldivian
[2023-01-22] MEDS: Cyclobenzaprine HCl 5 MG TABLET PO (15:44)
== END 2023-01-22 15:54 | disposition home or self-care (01) ==
PROVIDERS: Emergency Provider Student in an Organized Health Care Education/Training Program
DX: S39.012A Strain of muscle, fascia and tendon of lower back, initial encounter (principal); X58.XXXA Exposure to other specified factors, initial encounter; Y93.9 Activity, unspecified; Y99.0 Civilian activity done for income or pay; Y99.9 Unspecified external cause status; Z79.899 Other long term (current) drug therapy
CPT/HCPCS: 99283

== ENCOUNTER 2023-03-22 10:00 | Outpatient (RCR) | payer OTHER, SELFPAY ==
[2023-02-21 10:04] VITALS: BP 120/81; PULSE 82
--- NOTE | 2023-02-21 10:58 | MHC.PT.EP ---
[facility] [place] Office [place] Office [place] Office [address] Carmen Montes De Oca [address] [phone] F: [phone] F: [phone] F: [phone] F: [phone] Physical Therapy Plan of Care Date of Evaluation: Date of Surgery: NA Diagnosis: Low back pain Assessment: Lita is a 52 year old female who is referred to PT for low back pain . She reports of injuring her back while lifting boxes at work about 1 month back. She went to the ED after her injury where she was given pain medications and sent home. On PT examination she presented with 8/10 pain in the R side of her back with bending, lifting R LE, standing, walking and sitting, TTP over R SI, altered pelvic symmetry, decreased lumbar ROM, decreased muscle strength and altered posture. She is independent with ADLS however has pain with dressing lower body and bending forward. She modifies the way she does her ADLS. She works in the [employer] but is currently OOW. She would benefit from skilled PT to address the aforementioned impairments and improve tolerance to functional activities. Frequency and Duration: The patient will be seen 2/week for 4 weeks Short Term Goals: 1. Pt will have 50% decrease in pain which will enable her to tolerate sitting without pain in 2 weeks. 2. Pt will be able to move her trunk through full plane of motion without pain which will enable her to dress her lower body without pain in 3 weeks. Resolution Rep Goals: 1. Pt will demonstrate an increase in muscle strength by 1 grade which will enable to tolerate lifting R LE, walking and standing without pain in 4 weeks. 2. Pt will be independent with HEP for symptom management and maintenance following d/c in 4 weeks. Treatment Plan: Modalities to reduce pain, spasms and effusion. Manual therapy to restore motion and function. Therapeutic exercise to improve strength and flexibility. Neuromuscular re-education for posture and balance. Therapeutic activities to return to functional activities of daily living. Electronically signed by: Velia Graham PT DPT Please sign and return to therapist. Thank you for your referral.
--- NOTE | 2023-05-03 15:36 | MHC.PT.DC ---
[facility] [place] Office [place] Office [place] Office [address] Carmen Montes De Oca [address] [phone] F: [phone] F: [phone] F: [phone] F: [phone] Physical Therapy Discharge Report Diagnosis: Low back pain Date of Surgery: NA Date of Evaluation: 02/21/23 Date of Discharge: 05/03/23 Treatments to Date: 9 Cancellations to Date: 0 No Shows to Date: Discharge Status: Discharge Summary: Lita was encouraged to make more PT appointments to work on her strength however she did not make any appointments after 03/22/23. She is therefore being d.c from PT. Electronically signed by: Velia Graham PT DPT Please sign and return to therapist. Thank you for your referral.
== END 2023-05-03 15:37 | disposition home or self-care (01) ==
LOC: HO.PT 10:00
PROVIDERS: PCP Internal Medicine; Visit Provider Internal Medicine
DX: M54.50 Low back pain, unspecified (principal)
CPT/HCPCS: 97110; 97112; 97140; 97161

== ENCOUNTER → 2023-04-19 10:50 | Outpatient (BNVA) | payer OTHER, SELFPAY | PROVIDERS: PCP Internal Medicine; Visit Provider Nurse Practitioner Family | DX: M53.3 Sacrococcygeal disorders, not elsewhere classified (principal); M70.62 Trochanteric bursitis, left hip; M47.27 Other spondylosis with radiculopathy, lumbosacral region; M51.36 Other intervertebral disc degeneration, lumbar region | CPT/HCPCS: 99202 ==

== ENCOUNTER 2023-05-25 11:49 | Outpatient (AMB) | payer OTHER, SELFPAY ==
--- NOTE | 2023-05-25 12:07 | MHC.PC.OV ---
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 Intake Note: Pt is here today as a New Patient: W/C incident on 01/19/23 carrying heavy boxes at work Allergies naproxen [From NAPROSYN] Adverse Reaction (Unknown, Verified 06/05/23 13:46) STOMACH UPSET Medication List - Last Reconciled 05/25/23 by Savanna Kramer MD acetaminophen 1,000 mg (2 x 500 mg) PO Q6H PRN albuterol sulfate 90 mcg/actuation 1 inh inhalation QID PRN amlodipine 10 mg PO DAILY fluticasone propionate 50 mcg/actuation (Children's Flonase Allergy Relief) 1 spray intranasal BID lisinopril 10 mg PO DAILY omeprazole 40 mg PO DAILY Tobacco use date assessed: 05/25/23 Dental Screening Dental Screen Date: 05/25/23 Did you have a dental visit in the last 12 months?: No Was dental information given to patient?: Patient has dentist 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 Was seen at the emergency room January 19 2023 complaining of back pain throughout entire back, which started after she was moving boxes that weighed approximately 50 lb a piece at work. She states that she has had back pain in the past but this was worse.? She denies urinary/bowel incontinence/retention, saddle paresthesias, weakness, numbness, tingling, chest pain, shortness of breath, fevers, chills?. She had lumbar spine x-ray done which showed unremarkable findings. ?? X-ray of thoracic and lumbar spine showed degenerative disc disease no fractures.? CT of thoracic and lumbar spine showed degenerative changes throughout the thoracolumbar spine.? Disc bulge with ligamentum flavum hypertrophy L3-L4 and L4-L5 with narrowing of the spinal canal at these levels, no signs of cord compression, no signs of cauda equina.? Patient referred to [facility] and discharged home on Lidoderm patch, prednisone, morphine, latter discontinued due to nausea and was started on cyclobenzaprine. However continues to complain of low back pain, with minimal pain relief afforded by prescribed medication. Patient also referred and completed physical therapy with minimal improvement, and was subsequently seen at [facility] [place], where she was offered treatment options which included : ?Left L4-L5, L5-S1 TFESI?under sedation and fluoroscopy for left radicular pain, and ?Diagnostic Left SIJ and Left GTB steroid injection?with local and fluoroscopy. Patient however declined both options. She comes in today for follow-up, accompanied by daughter. States that back pain has improved, unsure however whether she can go back to work, as she is expected to lift and move heavy boxes again peer ON LICENSE OF [facility] Medical History (Updated 06/05/23 @ 14:03 by Savanna Kramre MD) Anemia Hearing loss associated with syndrome of both ears Obesity (BMI 30-39.9) Surgical History (Updated 06/05/23 @ 13:57 by Savanna Kramer MD) History of cochlear implant Family History (Updated 06/05/23 @ 13:55 by Savanna Kramer MD) Father Diabetes mellitus HTN (hypertension) Hyperlipidemia Mother HTN (hypertension) Hyperlipidemia Diabetes mellitus Social History Housing: Apartment Patient Tobacco Use Status: Former Tobacco user e-Cigarette/Vaping Use: Never Used service: No Current occupational status: unemployed Cognitive needs: No Hearing needs: No Vision needs: No Questionnaire AUDIT C Alcohol Use Questionnaire (AUDIT-C) 1. How often do you have a drink containing alcohol?: Never Total Score: 0 Review of Systems Const Denies fever(s), Denies headache(s) and Denies weakness Eyes Denies change in vision ENT Denies dizziness, Denies headache(s) and Denies nasal congestion Card Denies chest pain, Denies lightheadedness, Denies palpitations and Denies dyspnea Resp Denies cough and Denies dyspnea GI Denies abdominal pain and Denies change in bowel habits Denies urinary frequency, Denies dysuria, Denies urinary incontinence and Denies urinary urgency Musc Denies abnormal gait, Denies myalgias, Denies arthralgias, Denies muscle cramps, Denies muscle weakness, Denies numbness, Denies radiating pain into limb, Reports stiffness and Denies tingling Skin/Breast Denies rash Neuro Denies abnormal gait, Denies dizziness, Denies headache(s), Denies numbness, Denies tingling and Denies weakness Endo Denies polydipsia, Denies polyuria and Denies palpitations Physical exam (Primary Care) Vital Signs: Last Vital Signs Pulse 83 05/25/23 12:19 BP 124/84 05/25/23 12:19 Pulse Ox 98 05/25/23 12:19 Oxygen Delivery Method Room Air 05/25/23 12:19 BMI result Body Mass Index 31.2 Tobacco/Smoking Status: Tobacco use Status Tobacco use date assessed 05/25/23 05/25/23 12:24 Patient Tobacco Use Status Former Tobacco user 05/25/23 12:24 e-Cigarette/Vaping Use Never Used 05/25/23 12:24 Const Other: Alert oriented x3, no acute cardiorespiratory distress noted, ambulatory with normal gait, accompanied by daughter Orientation/consciousness: patient oriented x3 HENMT Head: Yes normocephalic Face and sinus: Yes face symmetric Mouth: Normal oral and palatal mucosa present, oropharynx normal and moist mucous membranes Eyes General: appearance normal, both eyes and all related structures Neck Neck: Yes full ROM, Yes no lymphadenopathy and Yes supple Resp Auscultation: clear to auscultation bilaterally Cardio Other: S1-S2 present regular rate and rhythm GI Other: Obese, soft, nontender, no mass palpated Auscultation: normal bowel sounds Back/Spine/Pelvis Thoracic/Lumbar Spine: thoraco-lumbar ROM normal, Lasegue's sign negative and No paraspinal muscle tenderness Skin General skin exam: no rashes or lesions noted Neuro General: patient oriented x3, gait normal, tone normal, moves all extremities, Normal light touch and pain sensation, no focal motor deficits and CN's II-XI intact bilaterally Extrem General: Yes full ROM, Yes no joint enlargement, Yes no clubbing, cyanosis or edema and Yes normal gait Assessment and Plan Assessment & Plan (1) Lumbosacral spondylosis: Code(s): M47.817 - Spondylosis without myelopathy or radiculopathy, lumbosacral region (2) Lumbar degenerative disc disease: Code(s): M51.36 - Other intervertebral disc degeneration, lumbar region Plan: Continue taking Tylenol arthritis as needed for pain, apply moist heat to affected area in lower back. Please insert and how to do proper lifting to avoid straining back. Coding Level of Care Code New Pt Level 3 (30198) Diagnoses Lumbosacral spondylosis M47.817 Lumbar degenerative disc disease M51.36
[2023-05-25 12:19] VITALS: BP 124/84; PULSE 83; O2SAT 98; BMI 31.2
== END 2023-05-25 14:02 | disposition home or self-care (01) ==
PROVIDERS: PCP Internal Medicine; Visit Provider Internal Medicine
DX: M47.817 Spondylosis without myelopathy or radiculopathy, lumbosacral region (principal); M51.36 Other intervertebral disc degeneration, lumbar region
CPT/HCPCS: 99203

== ENCOUNTER 2023-06-05 13:27 | Outpatient (AMB) | payer OTHER, SELFPAY ==
--- NOTE | 2023-06-05 13:40 | A.OFFPC_ITS ---
Vital Signs 06/05/23 13:41 Height 5 ft 3 in Weight 179 lb BMI 31.7 BP 114/70 Blood Pressure Location Rt brachial Position Sitting Pulse 99 Pulse Source Pulse Oximeter Pulse Oximetry (%) 99 Oxygen Delivery Method Room Air Intake Visit Reasons: Weight Loss Concerns Intake Note: Pt is here today to discuss weight loss Allergies naproxen [From NAPROSYN] Adverse Reaction (Unknown, Verified 06/05/23 13:46) STOMACH UPSET Medication List - Last Reconciled 06/05/23 by Savanna Kramer MD acetaminophen 1,000 mg (2 x 500 mg) PO Q6H PRN albuterol sulfate 90 mcg/actuation 1 inh inhalation QID PRN amlodipine 10 mg PO DAILY fluticasone propionate 50 mcg/actuation (Children's Flonase Allergy Relief) 1 spray intranasal BID levonorgestrel (Mirena) intrauterine lisinopril 10 mg PO DAILY omeprazole 40 mg PO DAILY Tobacco use date assessed: 06/05/23 Dental Screening Dental Screen Date: 06/05/23 Did you have a dental visit in the last 12 months?: No Was dental information given to patient?: Patient has dentist HPI Weight Loss Concerns HPI Details 53-year-old lady with bronchial asthma, history of anemia, obesity, here today accompanied by complaining of having difficulty with losing weight. She however has not been following any particular diet, and as per has been eating a lot of junk food and doing frequent late night snacking. She also is sedentary, currently not back to work and has just been staying home watching TV. [facility] Medical History (Updated 06/05/23 @ 14:03 by Savanna Kramer MD) Anemia Hearing loss associated with syndrome of both ears Obesity (BMI 30-39.9) Surgical History (Updated 06/05/23 @ 13:57 by Savanna Kramer MD) History of cochlear implant Family History (Updated 06/05/23 @ 13:55 by Savanna Kramer MD) Father Diabetes mellitus HTN (hypertension) Hyperlipidemia Mother HTN (hypertension) Hyperlipidemia Diabetes mellitus Social History Housing: Apartment Patient Tobacco Use Status: Former Tobacco user e-Cigarette/Vaping Use: Never Used service: No Current occupational status: unemployed Cognitive needs: No Hearing needs: No Vision needs: No Questionnaire PHQ-9 Over the last 2 weeks, how often have you been bothered by any of the following problems? 1. Little interest or pleasure in doing things: not at all 2. Feeling down, depressed, or hopeless: not at all 3. Trouble falling or staying asleep, or sleeping too much: not at all 4. Feeling tired or having little energy: not at all 5. Poor appetite or overeating: not at all 6. Feeling bad about yourself - or that you are a failure or have let yourself or your family down: not at all 7. Trouble concentrating on things, such as reading the newspaper or watching television: not at all 8. Moving or speaking so slowly that other people could have noticed. Or the opposite - being so fidgety or restless that you have been moving around a lot more than usual: not at all 9. Thoughts that you would be better off or of hurting yourself in some way: not at all Total score: 0 Depression Screening Interpretation: Negative 95264 - PHQ-9 Billing: Yes Source: Developed by Drs. Stephen Munoz, Farrah Acosta, Pollo Mireles and colleagues, with an educational nancy from [employer]. Thrive Questionnaire Date Thrive assessed: 06/05/23 I am a: Patient What is your living situation today?: I have a steady place to live Within the past 12 months, did the food you bought not last and you didn't have the money to get more?: Never true Within the past 12 months, did you worry whether your food would run out before you got money to buy more?: Never true Do you have trouble paying for medicines?: No Do you have trouble getting transportation to medical appointments?: No Do you have trouble paying your heating and electricity bill?: No Do you have trouble taking care of your child, family member or friend?: No Do you have trouble with day-to-day activities such as bathing, preparing meals, shopping, managing finances, etc.?: No Are you currently unemployed and looking for a job?: No Are you interested in more education?: No AUDIT C Alcohol Use Questionnaire (AUDIT-C) 1. How often do you have a drink containing alcohol?: Never Total Score: 0 ANNE MARIE-7 AMB Questionnaire ANNE MARIE-7 Date ANNE MARIE - 7 assessed: 06/05/23 Feeling nervous, anxious, or on edge: 0 = Not at all Not being able to stop or control worryin = Not at all Worrying too much about different things: 0 = Not at all Trouble relaxin = Not at all Being so restless that it is hard to sit still: 0 = Not at all Becoming easily annoyed or irritable: 0 = Not at all Feeling afraid as if something awful might happen: 0 = Not at all Total ANNE MARIE-7 score (0-4 normal; 5-9 mild; 10-14 moderate; 15-21 severe): 0 Source: Developed by Drs. Stephen Munoz, Farrah Acosta, Pollo Mireles and colleagues, with an educational nancy from [employer]. ANNE MARIE-7 Assessment Billing ANNE MARIE-7 Assessment Tool: ANNE MARIE-7 Assessment 55025 Review of Systems Const Reports no additional complaints, Denies fatigue and Denies poor appetite ENT Reports no additional complaints Card Reports no additional complaints Resp Reports no additional complaints GI Reports no additional complaints, Denies change in bowel habits, Denies dyspepsia and Denies heartburn Reports no additional complaints Musc Reports no additional complaints Neuro Reports no additional complaints Psych Reports no additional complaints Endo Denies fatigue Physical exam (Primary Care) Vital Signs: Last Vital Signs Pulse 99 06/05/23 13:41 BP 114/70 06/05/23 13:41 Pulse Ox 99 06/05/23 13:41 Oxygen Delivery Method Room Air 06/05/23 13:41 BMI result Body Mass Index 31.7 BMI Assessment/Plan discussion: High BMI High, discussed plan: lifestyle, weight reduction, dietary and physical activity Tobacco/Smoking Status: Tobacco use Status Tobacco use date assessed 06/05/23 06/05/23 13:48 Patient Tobacco Use Status Former Tobacco user 06/05/23 13:48 e-Cigarette/Vaping Use Never Used 06/05/23 13:48 Depression Screening Interpretation: Negative Const Other: Patient accompanied by General: comfortable, no acute distress and alert Nutritional Appearance: obese Orientation/consciousness: patient oriented x3 HENMT Head: Yes normocephalic and Yes atraumatic Eyes General: appearance normal, both eyes and all related structures Conjunctivae: conjunctivae normal Sclerae: sclerae normal Neck Other: Thyroid nonpalpable Neck: Yes full ROM, Yes no lymphadenopathy and Yes supple Resp Effort & Inspection: normal respiratory effort and able to speak in complete sentences Auscultation: clear to auscultation bilaterally Cardio Rate: regular rate Rhythm: regular rhythm Heart sounds: S1 normal heart sound present and S2 normal heart sound present GI Inspection: Yes obesity Palpation (GI): Soft to palpation, nontender, no guarding and no masses Auscultation: normal bowel sounds Neuro General: patient oriented x3, gait normal, tone normal, moves all extremities, Normal light touch and pain sensation, no focal motor deficits and CN's II-XI intact bilaterally Cognition (Neuro): normal cognition Gait exam (Neuro): Normal gait present Extrem General: Yes full ROM, Yes no joint enlargement, Yes no clubbing, cyanosis or edema and Yes normal gait Assessment and Plan Assessment & Plan (1) Obesity (BMI 30-39.9): Code(s): E66.9 - Obesity, unspecified Plan: Discussed need to increase activity and wt reduction. Referred to registered dietitian for guidance with regards to following healthy diet to able to lose weight. Recommended focusing on improving your health instead of dieting. : Eat Mediterranean diet, limit foods high in fat, sugar, and calories, eat slowly, pay attention to portion sizes, plan your meals ahead of time, start regular physical activity 150 minutes of moderate intensity exercise or 90 minutes/week of vigorous exercise and increase water intake. (2) Asthma: Code(s): J45.909 - Unspecified asthma, uncomplicated Plan: Currently stable controlled on present treatment, new with albuterol inhaler to use as needed for episodes of wheezing and bronchospasm. (3) Anemia: Code(s): D64.9 - Anemia, unspecified Plan: Ordered CBC, TSH with reflex free T4, vitamin-D and iron profile as well as vitamin B12 folic acid level. Orders: Orders Vitamin B12 and Folate 06/12/23 D64.9 - Anemia, unspecified, E66.9 - Obesity, unspecified, J45.909 - Unspecified asthma, uncomplicated, Z13.1 - Encounter for screening for diabetes mellitus, Z13.220 - Encounter for screening for lipoid disorders, R53.83 - Other fatigue Basic Metabolic Panel Fasting 06/12/23 D64.9 - Anemia, unspecified, E66.9 - Obesity, unspecified, J45.909 - Unspecified asthma, uncomplicated, Z13.1 - Encounter for screening for diabetes mellitus, Z13.220 - Encounter for screening for lipoid disorders IRON PROFILE 06/12/23 D64.9 - Anemia, unspecified, E66.9 - Obesity, unspecified, J45.909 - Unspecified asthma, uncomplicated, Z13.1 - Encounter for screening for diabetes mellitus, Z13.220 - Encounter for screening for lipoid disorders Lipid Panel 06/12/23 D64.9 - Anemia, unspecified, E66.9 - Obesity, unspecified, J45.909 - Unspecified asthma, uncomplicated, Z13.1 - Encounter for screening for diabetes mellitus, Z13.220 - Encounter for screening for lipoid disorders TSH reflex Free T4 06/12/23 D64.9 - Anemia, unspecified, E66.9 - Obesity, unspecified, J45.909 - Unspecified asthma, uncomplicated, Z13.1 - Encounter for screening for diabetes mellitus, Z13.220 - Encounter for screening for lipoid disorders Vitamin D 25-OH Total 06/12/23 D64.9 - Anemia, unspecified, E66.9 - Obesity, unspecified, J45.909 - Unspecified asthma, uncomplicated, Z13.1 - Encounter for screening for diabetes mellitus, Z13.220 - Encounter for screening for lipoid disorders Complete Blood Count Auto Diff 06/12/23 D64.9 - Anemia, unspecified, E66.9 - Obesity, unspecified, J45.909 - Unspecified asthma, uncomplicated, Z13.1 - Encounter for screening for diabetes mellitus, Z13.220 - Encounter for screening for lipoid disorders Medications: New levonorgestrel (Mirena) intrauterine Coding Level of Care Code Est Pt Level 3 (80387) Diagnoses Obesity (BMI 30-39.9) E66.9 Asthma J45.909 Anemia D64.9 Additional Codes ANNE MARIE-7 Assessment Billing - ANNE MARIE-7 Assessment Tool: ANNE MARIE-7 Assessment 10916 ([id number])
[2023-06-05 13:41] VITALS: BP 114/70; PULSE 99; O2SAT 99; BMI 31.7
== END 2023-06-05 15:20 | disposition home or self-care (01) ==
PROVIDERS: PCP Internal Medicine; Visit Provider Internal Medicine
DX: J45.909 Unspecified asthma, uncomplicated (principal); E66.9 Obesity, unspecified; D64.9 Anemia, unspecified; Z68.31 Body mass index [BMI] 31.0-31.9, adult
CPT/HCPCS: 99213

== ENCOUNTER 2023-06-12 08:12 | Outpatient (REF) | payer OTHER, SELFPAY ==
[2023-06-12 11:17] LABS: MANUAL DIFF FLAG NO
[2023-06-12 11:31] LABS: Basophils Percent Auto 0.5 % (0-2); Eosinophils Absolute Auto 0.2 X10*3/uL (0.0-0.4); Eosinophils Percent Auto 3.2 % (0-4); Hematocrit 39.8 % (37.0-47.0); Imm Gran Abs Auto 0.01 X10*3/uL (0.00-0.03); Imm Gran Pct Auto 0.2 % (0.0-0.4); Lymphocytes Absolute Auto 1.5 X10*3/uL (1.2-4.9); Lymphocytes Percent Auto 27.2 % (20-40); Mean Corpuscular HGB Conc 32.7 g/dl (31.0-35.0); Mean Corpuscular Hemoglobin 27.2 pg (27.0-33.0); Mean Corpuscular Volume 83.3 fL (80.0-98.0); Mean Platelet Volume 10.4 fL (9.4-12.3); Monocytes Absolute Auto 0.4 X10*3/uL (0.1-1.2); Monocytes Percent Auto 6.5 % (2-11); Neutrophils Absolute Auto 3.5 x10*3/uL (2.0-8.3); Neutrophils Percent Auto 62.4 % (45-73); Platelet Count 437 X10*3/uL (160-400); Red Blood Count 4.78 X10*6/uL (4.20-5.50); Red Cell Distribution Width 12.2 % (11.0-16.0); White Blood Count 5.7 X10*3/uL (4.8-10.8)
[2023-06-12 11:59] LABS: Anion Gap 11 (12-20); Blood Urea Nitrogen 10 mg/dL (9-16); Calcium 9.6 mg/dL (8.4-10.2); Carbon Dioxide 26 mmol/L (22-29); Chloride 108 mmol/L (96-108); Cholesterol 167 mg/dL; Estimated Glomerular Filt Rate > 60; Glucose Fasting 98 mg/dL (60-99); HDL Cholesterol 54 mg/dL; Iron 79 mcg/dL (30-160); LDL Cholesterol Calculated 96 mg/dl; Percent Iron Saturation 24 % (15-50); Potassium 3.6 mmol/L (3.3-5.1); Sodium 141 mmol/L (135-145); Total Iron Binding Capacity 330 mcg/dL (228-428); Triglycerides 89 mg/dL; Unsaturated Iron Binding 251 ug/dL
[2023-06-12 12:18] LABS: TSH reflex Free T4 1.61 uIU/mL (0.32-4.0); Vitamin D 25-OH Total 25.2 ng/mL (>30)
[2023-06-12 12:21] LABS: Folate 9.8 ng/mL (> or = 4.0); Vitamin B12 266 pg/mL (200-900)
== END 2023-06-12 08:13 | disposition home or self-care (01) ==
LOC: HO.HMGCLDS 08:12
PROVIDERS: PCP Internal Medicine; Visit Provider Internal Medicine
DX: Z13.1 Encounter for screening for diabetes mellitus (principal); Z13.220 Encounter for screening for lipoid disorders; D64.9 Anemia, unspecified; E66.9 Obesity, unspecified; J45.909 Unspecified asthma, uncomplicated; R53.83 Other fatigue
CPT/HCPCS: 36415; 80048; 80061; 82306; 82607; 82746; 83540; 84443; 85025

== ENCOUNTER 2023-07-19 11:17 | Outpatient (AMB) | payer OTHER, SELFPAY ==
[2023-07-19 11:22] VITALS: BP 110/78; PULSE 92; O2SAT 97; BMI 31.2
--- NOTE | 2023-07-19 11:22 | A.OFFPC_ITS ---
Vital Signs 07/19/23 11:22 Height 5 ft 3 in Weight 176 lb BMI 31.2 BP 110/78 Blood Pressure Location Lt brachial Position Sitting Pulse 92 Pulse Source Pulse Oximeter Pulse Oximetry (%) 97 Oxygen Delivery Method Room Air Intake Visit Reasons: PE Intake Note: patient is here today for her PE Phlebotomy Instructor Required: Yes Accompanied by: Family/Other Allergies naproxen [From NAPROSYN] Adverse Reaction (Unknown, Verified 07/19/23 12:12) STOMACH UPSET Medication List - Last Reconciled 07/19/23 by Savanna Kramer MD acetaminophen 1,000 mg (2 x 500 mg) PO Q6H PRN amlodipine 10 mg PO DAILY budesonide-formoterol 160-4.5 mcg/actuation (Symbicort) 1 puff inhalation BID cholecalciferol (vitamin D3) 1,250 mcg PO QWEEK 3 months levonorgestrel (Mirena) intrauterine lisinopril 10 mg PO DAILY omeprazole 40 mg PO DAILY Tobacco use date assessed: 07/19/23 Dental Screening Dental Screen Date: 07/19/23 Did you have a dental visit in the last 12 months?: No Did you have a dental problem in the last 6 months where you did not have access to dental care?: No Was dental information given to patient?: Patient has dentist HPI PE HPI Details 53-year-old lady here today for her phys ical exam. She has mild intermittent asthma, has been using Flovent 110 mcg per inhalation and budesonide 160-4.5 inhaler to gather twice a day and does not have a rescue inhaler. This was prescribed by her previous provider. Does not have a rescue inhaler, patient states her asthma is controlled with no episodes of wheezing or shortness of breath reported. She has had COVID vaccines in the past but does not want to get a booster, will be getting the flu shot at the pharmacy and agreed to get her pneumonia vaccine today. She also has hypertension currently stable controlled on lisinopril. She goes to [facility] for her routine Pap and pelvic exam, and CT, had an IUD inserted in 2019 due to dysfunctional uterine bleeding, states she is up-to-date with her cervical cancer screening, and will be getting her mammogram at [facility], later this year. Goes to [facility] GI clinic for her screening colonoscopy, states that he has had an EGD and an upper endoscopy last year, report of the EGD showed presence of chronic inflammation and reactive gastritis with no H pylori seen, unable to get the report of the colonoscopy finding. Patient could not recall when she would be needing to get it repeated however. She had recent fasting labs done which showed normal CBC, normal fasting glucose, lipids, but vitamin-D is deficient at 25. [facility] Medical History (Updated 07/19/23 @ 13:08 by Savanna Kramer MD) COVID-19 vaccination declined Hx of dysfunctional uterine bleeding History of use of contraceptive intrauterine device (IUD) Mild intermittent asthma Cochlear implant in place COVID-19 virus infection Nephrolithiasis Vitamin D deficiency Obesity (BMI 30-39.9) Hearing loss associated with syndrome of both ears Surgical History Hx of esophagogastroduodenoscopy History of cochlear implant Family History Father Diabetes mellitus HTN (hypertension) Hyperlipidemia Mother HTN (hypertension) Hyperlipidemia Diabetes mellitus Social History Housing: Apartment Patient Tobacco Use Status: Former Tobacco user e-Cigarette/Vaping Use: Never Used service: No Current occupational status: unemployed Cognitive needs: No Hearing needs: No Vision needs: No Female Reproductive History Menstrual control method: progestin IUCD Questionnaire PHQ-9 Over the last 2 weeks, how often have you been bothered by any of the following problems? 1. Little interest or pleasure in doing things: not at all 2. Feeling down, depressed, or hopeless: not at all 3. Trouble falling or staying asleep, or sleeping too much: several days 4. Feeling tired or having little energy: several days 5. Poor appetite or overeating: several days 6. Feeling bad about yourself - or that you are a failure or have let yourself or your family down: not at all 7. Trouble concentrating on things, such as reading the newspaper or watching television: several days 8. Moving or speaking so slowly that other people could have noticed. Or the opposite - being so fidgety or restless that you have been moving around a lot more than usual: not at all 9. Thoughts that you would be better off or of hurting yourself in some way: not at all Total score: 4 Depression Screening Interpretation: Negative 70140 - PHQ-9 Billing: Yes Source: Developed by Drs. Stephen Munoz, Farrah Acosta, Pollo Mireles and colleagues, with an educational nancy from [employer]. Thrive Questionnaire Date Thrive assessed: 07/19/23 I am a: Patient What is your living situation today?: I have a steady place to live Within the past 12 months, did the food you bought not last and you didn't have the money to get more?: Never true Within the past 12 months, did you worry whether your food would run out before you got money to buy more?: Never true Do you have trouble paying for medicines?: I choose not to answer this question Do you have trouble getting transportation to medical appointments?: I choose not to answer this question Do you have trouble paying your heating and electricity bill?: I choose not to answer this question Do you have trouble taking care of your child, family member or friend?: I choose not to answer this question Do you have trouble with day-to-day activities such as bathing, preparing meals, shopping, managing finances, etc.?: I choose not to answer this question Are you currently unemployed and looking for a job?: Yes Are you interested in more education?: Yes AUDIT C Alcohol Use Questionnaire (AUDIT-C) 1. How often do you have a drink containing alcohol?: Monthly or less 2. How many drinks containing alcohol do you have on a typical day when you are drinking?: 1 or 2 Total Score: 1 ANNE MARIE-7 AMB Questionnaire ANNE MARIE-7 Date ANNE MARIE - 7 assessed: 07/19/23 Feeling nervous, anxious, or on edge: 1 = Several days Not being able to stop or control worryin = Not at all Worrying too much about different things: 1 = Several days Trouble relaxin = Not at all Being so restless that it is hard to sit still: 1 = Several days Becoming easily annoyed or irritable: 1 = Several days Feeling afraid as if something awful might happen: 0 = Not at all Total ANNE MARIE-7 score (0-4 normal; 5-9 mild; 10-14 moderate; 15-21 severe): 4 Source: Developed by Drs. Stephen Munoz, Farrah Acosta, Pollo Mireles and colleagues, with an educational nancy from [employer]. ANNE MARIE-7 Assessment Billing ANNE MARIE-7 Assessment Tool: ANNE MARIE-7 Assessment 56456 ACT Questionnaire In the past 4 weeks, how much of the time did your asthma keep you from getting as much done at work, school or at home?: None of the time During the past 4 weeks, how often have you had shortness of breath?: Not at all During the past 4 weeks, how often did your asthma symptoms wake you up at night or earlier than usual in the morning?: Not at all During the past 4 weeks, how often have you had to use your rescue inhaler or nebulizer medication?: Not at all How would you rate your asthma control during the past 4 weeks?: Well controlled Score: 24 Review of Systems Const Reports no additional complaints Eyes Reports no additional complaints ENT Reports no additional complaints Card Reports no additional complaints Resp Reports no additional complaints GI Reports no additional complaints, Denies change in bowel habits, Denies dyspepsia and Denies heartburn (Controlled on omeprazole) Reports no additional complaints Musc Reports no additional complaints Skin/Breast Details: Goes to [place] for her screening mammogram, has an appointment scheduled for later this year Denies breast swelling, Denies breast pain and Denies breast mass Neuro Reports no additional complaints Psych Reports no additional complaints Endo Reports no additional complaints Silvio/Lymph Reports no additional complaints Aller/Immun Reports no additional complaints Physical exam (Primary Care) Vital Signs: Last Vital Signs Pulse 92 07/19/23 11:22 BP 110/78 07/19/23 11:22 Pulse Ox 97 07/19/23 11:22 Oxygen Delivery Method Room Air 07/19/23 11:22 BMI result Body Mass Index 31.2 BMI Assessment/Plan discussion: High BMI High, discussed plan: lifestyle, weight reduction, dietary and physical activity Tobacco/Smoking Status: Tobacco use Status Tobacco use date assessed 07/19/23 07/19/23 11:23 Patient Tobacco Use Status Former Tobacco user 07/19/23 11:22 e-Cigarette/Vaping Use Never Used 07/19/23 11:22 PHQ-9: PHQ-9 Score PHQ-9: Total score 12 07/19/23 12:44 Depression Screening Interpretation: Negative Thrive Assessment: Date of Thrive Assessment Date Thrive assessed 07/19/23 07/19/23 11:44 Const General: comfortable, no acute distress and alert Nutritional Appearance: obese Orientation/consciousness: patient oriented x3 HENMT Head: Yes normocephalic and Yes atraumatic Eyes General: appearance normal, both eyes and all related structures Conjunctivae: conjunctivae normal Sclerae: sclerae normal Neck Other: Thyroid nonpalpable Neck: Yes full ROM, Yes no lymphadenopathy and Yes supple Chest Breast/axilla palpation: normal palpation of the breasts Resp Effort & Inspection: normal respiratory effort and able to speak in complete sentences Auscultation: clear to auscultation bilaterally Cardio Rate: regular rate Rhythm: regular rhythm Heart sounds: S1 normal heart sound present and S2 normal heart sound present GI Inspection: Yes obesity Palpation (GI): Soft to palpation, nontender, no guarding and no masses Auscultation: normal bowel sounds General: Yes no CVA tenderness and Yes deferred (Sees OBGYN at [place]) Back/Spine/Pelvis Back: no CVA tenderness Skin General skin exam: no rashes or lesions noted Neuro General: patient oriented x3, gait normal, tone normal, moves all extremities, Normal light touch and pain sensation, no focal motor deficits and CN's II-XI intact bilaterally Cognition (Neuro): normal cognition Gait exam (Neuro): Normal gait present Extrem General: Yes full ROM, Yes no joint enlargement, Yes no clubbing, cyanosis or edema and Yes normal gait Psych Appearance: grossly normal and well kempt Mental Status: mental status grossly normal Speech and movement: Normal speech and movement present Affect: normal affect Attitude: cooperative Thought process: Normal thought process present Immunizations pneumoc 20-jose conj-dip cr(PF) 0.5 mL IM syringe Performing Provider: Savanna Kramer MD Performing Location: [facility] Administered by: RANDI Lopez on 07/19/23 12:34 2 Dose Route Admin Location Dispensed Lot Number Expiration Date NDC Traffic Inspector 0.5 mL IM Left Deltoid 0.5 mL [id number] 08/28/24 6314-7434-26 Crescentrating/Monitise VIS Given Date VIS Provided VIS Publication Date 07/19/23 Single Vaccine 21 Eligibility Eligibility Date Funding Source Not [facility] Eligible 07/19/23 Private Results Reviewed Results Reviewed: ENTERED: 06/12/[address]: ORDERED: CBC Auto Diff Test Result Flag Reference Site WBC 5.7 4.8-10.8 X10*3/uL RBC 4.78 4.20-5.50 X10*6/uL HGB 13.0 12.0-16.0 g/dl HCT 39.8 37.0-47.0 % MCV 83.3 80.0-98.0 fL MCH 27.2 27.0-33.0 pg MCHC 32.7 31.0-35.0 g/dl RDW 12.2 11.0-16.0 % PLT 437 # H 160-400 X10*3/uL ENTERED: 06/12/[address]: ORDERED: Met Prof Fast, IRON PROF, Lipid Panel, Vitamin D 25-OH, TSH Rflx Test Result Flag Reference Site Sodium 141 135-145 mmol/L Potassium 3.6 3.3-5.1 mmol/L CL 108 96-108 mmol/L CO2 26 22-29 mmol/L Gap 11 L 12-20 BUN 10 9-16 mg/dL Creat 0.78 0.5-1.4 mg/dL EGFR > 60 NOTE: For -Macanese individuals, multiply the result by 1.210. Chronic Kidney Disease: Estimated GFR < 60 mL/min/1.73m2 Severe Kidney Disease: Estimated GFR < 15 mL/min/1.73m2 FBS 98 60-99 mg/dL CA 9.6 8.4-10.2 mg/dL Iron 79 30-160 mcg/dL TIBC 330 228-428 mcg/dL Saturation 24 15-50 % UIBC 251 ug/dL Triglyceride 89 mg/dL Desirable Triglyceride: less than 150 mg/dL Borderline High Triglyceride 150-199 mg/dL High Triglyceride: 200-499 mg/dL Very High Triglyceride: greater than or equal to 5OO mg/dL Chol 167 mg/dL Desirable Cholesterol: less than 200 mg/dL Borderline High Cholesterol: 200-239 mg/dL High Cholesterol: greater than 239 mg/dL LDL Calculated 96 mg/dl Desirable LDL: less than 100 mg/dL Near Optimal/Above Optimal LDL: 110-129 mg/dL Borderline High LDL: 130-159 mg/dL High LDL: 160-189 mg/dL Very High LDL: greater than or equal to 190 mg/dL HDL 54 mg/dL Desirable HDL: greater than 40 mg/dL Note: This HDL assay may give artificially low results in patients with liver disease. Vit D 25-OH Tot 25.2 >30 ng/mL Health Based Reference Values* < 20 ng/mL Deficient 20-30 ng/mL Insufficient > 30 ng/mL Sufficient *Betsy COON. N Engl J Med. 2007;357:266-280 Care must be taken in interpreting Vitamin D results from different laboratories and methodologies. Published data demonstrated that results from patients undergoing hemodialysis may show a negative bias when tested with various automated 25-OH vitamin D assays when compared to LC-MS/MS. When testing samples from patients whose predominant form of Vitamin D is Vitamin D2, such as patients receiving Vitamin D2 supplementation, results that are subtherapeutic should be confirmed with another method such as LC-MS/MS. TSH 1.61 0.32-4.0 uIU/mL Assessment and Plan Assessment & Plan (1) Annual visit for general adult medical examination with abnormal findings: Code(s): Z00.01 - Encounter for general adult medical examination with abnormal findings Plan: Reviewed recent fasting lab results with patient. Recommended dental visit every 6 months and regular eye exams, at least every 2 years. Take adequate calcium in diet and vitamin-D 3 at 2000 IU per cap once a day, in addition to weight-bearing exercises to help maintain good muscle tone and weight control. Instructed to do self-breast exam, and recommended to get yearly mammogram, patient states she will be getting this at [place] later this year. She declines getting any further COVID booster, reminded to get her flu shot, Prevnar 20 given today, declined Tdap. (2) Mild intermittent asthma: Code(s): J45.20 - Mild intermittent asthma, uncomplicated Qualifiers: Asthma complication type: uncomplicated Qualified Code(s): J45.20 - Mild intermittent asthma, uncomplicated Plan: Patient confused with her inhalers, advised to just take Symbicort 2 inhalations every 12 hours advised to gargle and rinse mouth after use, prescription sent for albuterol inhaler, to be used only as needed for episodes of at acute bronchospasm and wheezing. Cautioned about possible side effects and medication which can cause tachycardia. Reminded to get her flu shot, Prevnar 20 given today. (3) Vitamin D deficiency: Code(s): E55.9 - Vitamin D deficiency, unspecified Plan: Latest labs showed low vitamin-D level at 25. Prescription sent for vitamin-D 3 56470 units per capsule to take once a week for the next 3 months, once finished taking the prescription to continue taking [id number] vitamin-D 3 at 2000 units once a day (4) Obesity (BMI 30-39.9): Code(s): E66.9 - Obesity, unspecified Plan: Discussed need to increase activity and wt reduction. Recommended focusing on improving your health instead of dieting. : Eat Mediterranean diet, limit foods high in fat, sugar, and calories, eat slowly, pay attention to portion sizes, plan your meals ahead of time, start regular physical activity 150 minutes of moderate intensity exercise or 90 minutes/week of vigorous exercise and increase water intake. (5) Hearing loss associated with syndrome of both ears: Code(s): H91.93 - Unspecified hearing loss, bilateral Plan: Has cochlear implant (6) COVID-19 vaccination declined: Code(s): Z28.21 - Immunization not carried out because of patient refusal Orders: Orders Pneumococcal 20 Immunization Today Z23 - Encounter for immunization Medications: New albuterol sulfate 90 mcg/actuation 1 inh inhalation QID PRN 8.5 grams 1RF shortness of breath or wheezing cholecalciferol (vitamin D3) 1,250 mcg PO QWEEK 3 months 13 caps 0RF E55.9 - Vitamin D deficiency, unspecified Review Declined TDap/Td: 07/19/23 Coding Level of Care Code Est Pt Level 4 (83989) Diagnoses Annual visit for general adult medical examination with abnormal findings Z00.01 Mild intermittent asthma without complication J45.20 Asthma complication type: uncomplicated Vitamin D deficiency E55.9 Obesity (BMI 30-39.9) E66.9 Hearing loss associated with syndrome of both ears H91.93 COVID-19 vaccination declined Z28.21 Additional Codes ANNE MARIE-7 Assessment Billing - ANNE MARIE-7 Assessment Tool: ANNE MARIE-7 Assessment 38241 ([id number])
== END 2023-07-19 13:01 | disposition home or self-care (01) ==
PROVIDERS: PCP Internal Medicine; Visit Provider Internal Medicine
DX: Z00.00 Encounter for general adult medical examination without abnormal findings (principal); J45.20 Mild intermittent asthma, uncomplicated; E55.9 Vitamin D deficiency, unspecified; Z23 Encounter for immunization; H91.93 Unspecified hearing loss, bilateral; E66.9 Obesity, unspecified; Z28.21 Immunization not carried out because of patient refusal
CPT/HCPCS: 90471; 90677; 99396

== ENCOUNTER 2023-07-30 08:34 | Outpatient (AMB) | payer OTHER, SELFPAY ==
--- NOTE | 2023-07-30 08:36 | MHC.OFFVIS ---
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 Pain radiates to her buttocks, lateral hips and at times to left anterior thigh. She was initially seen in our office in March with plans for therapeutic left TFESI injections but unfortunately this was not approved by her [employer] insurance. Today, patient presents with pain in the projection of both sacroiliac joint areas, left worse than right and low back pain with bending. Sacroiliac joint pain increases with changing positions or walking. Patient reports her back symptoms have been progressively getting worse and she is not able to perform her usual work. She is pursuing FMLA and disability for this matter. During today's exam, SLR testing did not reproduce any radicular pain. She has been managing her pain with extra strength Tylenol and occasionally with Ibuprofen with minimal pain relief. She avoids NSAIDs for most part as this causes her GI upset. Patient is interested to undergo diagnostic SIJ injections and trial chiropractic adjustments. Reports prior PT course did not improve her pain or function. Denies any fever, abdominal or groin pain, burning, tingling, paresthesias, bladder or bowel dysfunction or saddle anesthesia. PRIOR: Patient is a pleasant 52 years old Trinidadian speaking female presents today with low back pain that radiates to her left buttock and into and associated with numbness and tingling. Denies any past or recent trauma, injury or falls. Patient also presents with localized tenderness in the projection of left SIJ and left lateral hip with tenderness in the left greater trochanteric bursa. Patient reports she did not gain significant pain relief or function with physical therapy. 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 Denies previous spine surgery or injections. Pain affects her daily activities and functioning, mobility, work, sleep, mood and quality of life. Lumbar spine imaging is noted below. Denies any fever, abdominal or groin pain, weakness, bladder or bowel incontinence or saddle anesthesia. Location Low back pain radiating to LLE Duration Chronic low back pain Characteristics of symptom or complaint Aching, shooting, stabbing, throbbing, radiating, spasming, tingling Aggravating or associated factors Prolonged walking, standing, sitting, changing position, bending Relieving factors Tylenol, Flexeril, lidocaine patch, Meloxicam Treatment Physical therapy [facility] Medical History COVID-19 vaccination declined Hx of dysfunctional uterine bleeding History of use of contraceptive intrauterine device (IUD) Mild intermittent asthma Cochlear implant in place COVID-19 virus infection Nephrolithiasis Vitamin D deficiency Obesity (BMI 30-39.9) Hearing loss associated with syndrome of both ears Surgical History Hx of esophagogastroduodenoscopy History of cochlear implant Family History Father Diabetes mellitus HTN (hypertension) Hyperlipidemia Mother HTN (hypertension) Hyperlipidemia Diabetes mellitus Social History Housing: Apartment Patient Tobacco Use Status: Former Tobacco user e-Cigarette/Vaping Use: Never Used service: No Current occupational status: unemployed Cognitive needs: No Hearing needs: No Vision needs: No Review of Systems Const All systems reviewed & are unremarkable except as noted in HPI and below Physical Exam Vital Signs: Last Vital Signs Pulse 103 H 07/30/23 08:41 BP 145/66 H 07/30/23 08:41 Pulse Ox 98 07/30/23 08:41 Oxygen Delivery Method Room Air 07/30/23 08:41 BMI result Body Mass Index 31.1 General: Appears afebrile. Alert and oriented. Mood and affect appropriate. Follows and participates in conversation appropriately. Respiratory effort is unlabored. No cough. Able to transition from sit to stand unassisted. Ambulates with bilaterally normal heel strike and toe off. Back/Spine/Pelvis Other: Limited lumbar ROM, with lumbar extension reproducing more pain than with flexion. Demonstrates 5/5 strength of quadriceps bilaterally as well as flexion/dorsiflexion of bilateral feet against resistance. 2+ pedal pulses bilaterally. Seated straight leg rise with dorsiflexion negative bilaterally. +2 patellar and achilles reflexes bilaterally. Facet loading test positive bilaterally. Joseline sign, Bernardo?s, Gaenslen, Pelvic compression and Stinchfield tests are positive bilaterally, left>right. No groin pain with I/E hip rotations. Mild TTP on left GTB. Valsalva maneuver negative. No clonus. Cervical Spine: cervical ROM normal and No Cervical spine tenderness Thoracic/Lumbar Spine: thoracic and lumbar spine normal to inspection, No Thoracic/lumbar spine scar(s), Lasegue's sign negative, straight leg raise negative bilaterally, pain with thoraco-lumbar ROM, paraspinal muscle tenderness, thoraco-lumbar ROM limited, No thoracic spinal tenderness, lumbar spinal tenderness (L4-S1) and No straight leg raise positive Pelvis: buttock tenderness bilaterally Sacroiliac joints: bilaterally tender to palpation Results Reviewed Results Reviewed: CT thoracic spine wo IV con, CT lumbar spine wo IV con 01/19/23 FINDINGS: No fracture or subluxation. Vertebral body height and alignment maintained with small endplate osteophytes throughout the thoracolumbar spine. Mild disc space narrowing seen at L4-L5 and L5-S1. Vacuum disc phenomenon at L5-S1. The posterior elements are intact. The sacroiliac joints are symmetric. The visualized sacrum is intact. The visualized lungs are clear. The visualized mediastinum shows no acute abnormality. The visualized portion of the abdomen shows no acute finding. No lymphadenopathy. IUD in the uterus. The paraspinal musculature is unremarkable. Although evaluation of the spinal levels is limited on noncontrast CT, there is evidence of disc bulge with ligamentum flavum hypertrophy at L3-L4 and L4-L5 resulting in narrowing of the spinal canal at these levels. IMPRESSION: 1. Mild degenerative changes throughout the thoracolumbar spine. 2. Disc bulge with ligamentum flavum hypertrophy at L3-L4 and L4-L5 resulting in narrowing of the spinal canal at these levels. Lumbar spine 3 views dorsal spine 2 views 01/19/23 FINDINGS: Diffuse endplate spurring throughout the lumbar spine consistent with degenerative disc disease. Moderate disc space narrowing L5 and S1. IUD in place. No gross migration. No fracture or spondylolysis. Dorsal spine imaging demonstrates similar generalized endplate spurring but preservation of vertebral heights and disc spaces. No subluxation. IMPRESSION: Degenerative disc disease as above. No fracture. Assessment & Plan Assessment & Plan (1) Lumbar degenerative disc disease: Code(s): M51.36 - Other intervertebral disc degeneration, lumbar region (2) Lumbosacral spondylosis: Code(s): M47.817 - Spondylosis without myelopathy or radiculopathy, lumbosacral region (3) Sacroiliac joint pain: Code(s): M53.3 - Sacrococcygeal disorders, not elsewhere classified (4) Lumbosacral spondylosis: Code(s): M47.817 - Spondylosis without myelopathy or radiculopathy, lumbosacral region Plan 1. Schedule Diagnostic Bilateral Sacroiliac Joint Injections with local and fluoroscopy. If no pain relief, will proceed with diagnostic lumbar medial branch blocks for axial low back pain. Briefly discussed Sprint PNS trial, RFA and therapeutic injections if she has positive response with diagnostic injections. 2. Chiropractic referral for low back and SIJ pain sent to [facility] [address], [place] [address]. 3. Continue home exercise program, weight optimization, adequate hydration, good posture, and daily physical activity. All questions and concerns have been answered and patient agreed with the plan. Follow up after injections and sooner if needed. Justification for interventional therapy: ? Patient with average pain > 6/10 ? Patient has exhausted conservative therapy, NSAIDs and physical therapy The risks, consequences, alternatives, and benefits of various treatment options were discussed with the patient in great detail, including conservative management, injections and procedures. Orders: Referrals Chiropractic Referral M47.817 - Spondylosis without myelopathy or radiculopathy, lumbosacral region, M51.36 - Other intervertebral disc degeneration, lumbar region, M53.3 - Sacrococcygeal disorders, not elsewhere classified Coding Level of Care Code Est Pt Level 4 (12829) Diagnoses Lumbar degenerative disc disease M51.36 Lumbosacral spondylosis M47.817 Sacroiliac joint pain M53.3
[2023-07-30 08:41] VITALS: BP 145/66; PULSE 103; O2SAT 98; BMI 31.1
== END 2023-07-30 08:53 | disposition home or self-care (01) ==
PROVIDERS: PCP Internal Medicine; Visit Provider Nurse Practitioner Family
DX: M51.36 Other intervertebral disc degeneration, lumbar region (principal); M47.817 Spondylosis without myelopathy or radiculopathy, lumbosacral region; M53.3 Sacrococcygeal disorders, not elsewhere classified
CPT/HCPCS: 99214

== ENCOUNTER → 2023-07-30 08:34 | Outpatient (BNVA) | payer OTHER, SELFPAY | PROVIDERS: PCP Internal Medicine; Visit Provider Nurse Practitioner Family | DX: M51.36 Other intervertebral disc degeneration, lumbar region (principal); M47.817 Spondylosis without myelopathy or radiculopathy, lumbosacral region; M53.3 Sacrococcygeal disorders, not elsewhere classified | CPT/HCPCS: 99212 ==

== ENCOUNTER 2023-08-14 07:19 | Outpatient (REF) | payer OTHER, SELFPAY ==
--- NOTE | ~2023-08-14 | FL_ITS ---
EXAMINATION: XR FLUOROSCOPY WITH IMAGES CLINICAL INFORMATION: Sacrococcygeal disorders, not elsewhere classified. COMPARISON: None available. TECHNIQUE: Fluoroscopy Supervised By: Dr. Henri Bentley. Fluoroscopy Time: 0.3 minutes. Cumulative Dose: 6.00 mGy. DAP: 0.0658 Gycm2. Images: 2. FINDINGS: Images demonstrate needle placement and contrast injection over the bilateral lateral sacrum FL/FL guidance in treatment room IMPRESSION: Fluoroscopy guidance for pain management procedure
== END 2023-08-14 07:20 | disposition home or self-care (01) ==
LOC: CF 07:19
PROVIDERS: Visit Provider Anesthesiology
DX: M53.3 Sacrococcygeal disorders, not elsewhere classified (principal); M51.36 Other intervertebral disc degeneration, lumbar region; M47.817 Spondylosis without myelopathy or radiculopathy, lumbosacral region
CPT/HCPCS: 27096; J2795

== ENCOUNTER 2023-08-14 07:43 | Outpatient (AMB) | payer OTHER, SELFPAY ==
[2023-08-14 07:52] VITALS: BP 134/70; PULSE 95; RESP 16; O2SAT 99; BMI 31.0
--- NOTE | 2023-08-14 07:52 | A.OFFVIS_ITS ---
Intake Vital Signs 08/14/23 07:52 08/14/23 08:55 Height 5 ft 3 in 5 ft 3 in Weight 175 lb 175 lb BMI 31.0 31.0 BP 134/70 128/66 Blood Pressure Location Lt brachial Lt brachial Position Sitting Sitting Respiration 16 16 Pulse 95 86 Pulse Source Pulse Oximeter Pulse Oximeter Pulse Oximetry (%) 99 99 Oxygen Delivery Method Room Air Room Air Comment pre-Op Post-op Intake Visit Reasons: BILATERAL DIAGNOSTIC SIJ INJECTIONS Allergies naproxen [From NAPROSYN] Adverse Reaction (Unknown, Verified 08/14/23 08:56) STOMACH UPSET PFSH Medical History COVID-19 vaccination declined Hx of dysfunctional uterine bleeding History of use of contraceptive intrauterine device (IUD) Mild intermittent asthma Cochlear implant in place COVID-19 virus infection Nephrolithiasis Vitamin D deficiency Obesity (BMI 30-39.9) Hearing loss associated with syndrome of both ears Surgical History Hx of esophagogastroduodenoscopy History of cochlear implant Family History Father Diabetes mellitus HTN (hypertension) Hyperlipidemia Mother HTN (hypertension) Hyperlipidemia Diabetes mellitus Social History Housing: Apartment Patient Tobacco Use Status: Former Tobacco user e-Cigarette/Vaping Use: Never Used service: No Current occupational status: unemployed Cognitive needs: No Hearing needs: No Vision needs: No Physical Exam Vital Signs: Last Vital Signs Pulse 86 08/14/23 08:55 Resp 16 08/14/23 08:55 BP 128/66 08/14/23 08:55 Pulse Ox 99 08/14/23 08:55 Oxygen Delivery Method Room Air 08/14/23 08:55 BMI result Body Mass Index 31.0 Assessment & Plan Assessment & Plan (1) Lumbar degenerative disc disease: Code(s): M51.36 - Other intervertebral disc degeneration, lumbar region (2) Lumbosacral spondylosis: Code(s): M47.817 - Spondylosis without myelopathy or radiculopathy, lumbosacral region (3) Sacroiliac joint pain: Code(s): M53.3 - Sacrococcygeal disorders, not elsewhere classified Plan: bilateral diagnostic sacroiliac joint injection Informed consent was explained thoroughly to the patient. All questions about benefits and risks for the procedure were answered. Patient came to the operating room and was positioned prone on the operating table with the pillow under the pelvis. Time out was performed delineating name and of the patient, allergies and th e nature of the procedure. The lower back and buttocks of the patient were prepped with ChloraPrep prepped and draped with sterile utility towels. C-arm was brought over the operating field and sq picture of patient's pelvis was demonstrated on the screen. For the right joint tilting C-arm contralateral to the site of the joint the most posterior portion of the joints was superimposed with anterior silhouette of the joint. Skin was injected in the projection of the joint slightly medial to the location of the joint with 25 gauge 1/2 inch needle using local lidocaine 2% .After that 22 gauge 3 and 1/2 inch needle was driven to the right joint in tunnel vision fashion. When needle entered the joint capsule injection of the contrast was performed demonstrating intra-articular and minimally periarticular spread of the contrast. After that 4 cc. of ropivacaine 0.5% was injected into the joint. Upon completion of the injections the needle was removed and procedure was repeated on the left side in the mirroring fashion. Sterile dressing was applied. Upon completion of the injection patient was taken outside of the operating room to the recovery room where recovered uneventfully. (4) Lumbosacral spondylosis: Code(s): M47.817 - Spondylosis without myelopathy or radiculopathy, lumbosacral region Plan 1. Schedule Diagnostic Bilateral Sacroiliac Joint Injections with local and fluoroscopy. If no pain relief, will proceed with diagnostic lumbar medial branch blocks for axial low back pain. Briefly discussed Sprint PNS trial, RFA and therapeutic injections if she has positive response with diagnostic injections. 2. Chiropractic referral for low back and SIJ pain sent to [facility] [address] [place] [address] [address], [place] [address]. 3. Continue home exercise program, weight optimization, adequate hydration, good posture, and daily physical activity. All questions and concerns have been answered and patient agreed with the plan. Follow up after injections and sooner if needed. Justification for interventional therapy: ? Patient with average pain > 6/10 ? Patient has exhausted conservative therapy, NSAIDs and physical therapy The risks, consequences, alternatives, and benefits of various treatment options were discussed with the patient in great detail, including conservative management, injections and procedures. Orders: Orders FL guidance in treatment room Today M53.3 - Sacrococcygeal disorders, not elsewhere classified Coding Level of Care Code Procedure Only Diagnoses Lumbar degenerative disc disease M51.36 Lumbosacral spondylosis M47.817 Sacroiliac joint pain M53.3
[2023-08-14 08:55] VITALS: BP 128/66; PULSE 86; RESP 16; O2SAT 99; BMI 31.0
== END 2023-08-14 08:49 | disposition home or self-care (01) ==
LOC: HO.PMCPRC 07:43
PROVIDERS: PCP Internal Medicine; Visit Provider Anesthesiology
DX: M53.3 Sacrococcygeal disorders, not elsewhere classified (principal)
CPT/HCPCS: 27096

== ENCOUNTER 2023-08-21 12:41 | Outpatient (AMB) | payer OTHER, SELFPAY ==
--- NOTE | 2023-08-21 12:56 | A.OFFVIS_ITS ---
Intake Vital Signs 08/21/23 13:00 Height 5 ft 3 in Weight 176 lb 8 oz BMI 31.3 BP 108/61 Blood Pressure Location Rt brachial Position Sitting Pulse 88 Pulse Source Pulse Oximeter Pulse Oximetry (%) 97 Oxygen Delivery Method Room Air Intake Visit Reasons: BILATERAL DIAGNOSTIC SIJ INJECTIONS/08/14/23 Intake Note: Pain today 08/07 Patient Portal Representative Required: No Accompanied by: Self / Same As Patient Allergies naproxen [From NAPROSYN] Adverse Reaction (Unknown, Verified 08/21/23 13:00) STOMACH UPSET HPI HPI Comments History of Present Illness Details Patient presents today to assess response to Bilateral Diagnostic SIJ injections on 08/14/[address] Bentley. Patient reports most of her left sided pain is gone, especially left lateral and lower back but right sight sided pain has been worsened since the injections. She reports 7/10 pain pre-procedure for both sides, 0/10 immediately for procedure on the left side and still ongoing and 8/10 with periods of increases to 9-10/10 on the right side with ADLs. She continues to endorse axial low back pain with movements, lumbar extension as well as bending down or changing her positions. Most of today's symptoms are localized to left SIJ area with tenderness and aggravation of SIJ pain with provocative tests. Mild leg discrepancy has been noted, with right leg shorter than left. She has not been scheduled for Chiropractic adjustment yet and will reach out to provider today. Patient reports low tolerance with local anesthesia and prefers future injections with sedation if possible. She continues to take extra strength Tylenol and heat therapy. She does not take NSAIDs due to GI effects. Denies any fever, abdominal or groin pain, bladder or bowel dysfunction, foot drop or saddle anesthesia. PRIOR: Patient presents today for follow up for continued low back pain. Pain radiates to her buttocks, lateral hips and at times to left anterior thigh. She was initially seen in our office in March with plans for therapeutic left TFESI injections but unfortunately this was not approved by her Worker's [employer] insurance. Today, patient presents with pain in the projection of both sacroiliac joint areas, left worse than right and low back pain with bending. Sacroiliac joint pain increases with changing positions or walking. Patient reports her back symptoms have been progressively getting worse and she is not able to perform her usual work. She is pursuing FMLA and disability for this matter. During today's exam, SLR testing did not reproduce any radicular pain. She has been managing her pain with to asextra strength Tylenol and occasionally with Ibuprofen with minimal pain relief. She avoids NSAIDs for most part as this causes her GI upset. Patient is interested to undergo diagnostic SIJ injections and trial chiropractic adjustments. Reports prior PT course did not improve her pain or function. Denies any fever, abdominal or groin pain, burning, tingling, paresthesias, bladder or bowel dysfunction or saddle anesthesia. PRIOR: Patient is a pleasant 52 years old Nepalese speaking female presents today with low back pain that radiates to her left buttock and into and associated with numbness and tingling. Denies any past or recent trauma, injury or falls. Patient also presents with localized tenderness in the projection of left SIJ and left lateral hip with tenderness in the left greater trochanteric bursa. Patient reports she did not gain significant pain relief or function with physical therapy. She attributes her back pain to work related injury by lifting heavy boxes at the [employer] that originally happened on 01/19/23 and was evaluated at [facility] on 01/19/23 and 01/22/23. Denies previous spine surgery or injections. Pain affects her daily activities and functioning, mobility, work, sleep, mood and quality of life. Lumbar spine imaging is noted below. Denies any fever, abdominal or groin pain, weakness, bladder or bowel incontinence or saddle anesthesia. Location Low back pain radiating to LLE Duration Chronic low back pain Characteristics of symptom or complaint Aching, shooting, stabbing, throbbing, radiating, spasming, tingling Aggravating or associated factors Prolonged walking, standing, sitting, changing position, bending Relieving factors Tylenol, Flexeril, lidocaine patch, Meloxicam Treatment Physical therapy [facility] Medical History COVID-19 vaccination declined Hx of dysfunctional uterine bleeding History of use of contraceptive intrauterine device (IUD) Mild intermittent asthma Cochlear implant in place COVID-19 virus infection Nephrolithiasis Vitamin D deficiency Obesity (BMI 30-39.9) Hearing loss associated with syndrome of both ears Surgical History Hx of esophagogastroduodenoscopy History of cochlear implant Family History Father Diabetes mellitus HTN (hypertension) Hyperlipidemia Mother HTN (hypertension) Hyperlipidemia Diabetes mellitus Social History Housing: Apartment Patient Tobacco Use Status: Former Tobacco user e-Cigarette/Vaping Use: Never Used service: No Current occupational status: unemployed Cognitive needs: No Hearing needs: No Vision needs: No Review of Systems Const All systems reviewed & are unremarkable except as noted in HPI and below Physical Exam Vital Signs: Last Vital Signs Pulse 88 08/21/23 13:00 BP 108/61 08/21/23 13:00 Pulse Ox 97 08/21/23 13:00 Oxygen Delivery Method Room Air 08/21/23 13:00 BMI result Body Mass Index 31.3 General: Appears afebrile. Alert and oriented. Mood and affect appropriate. Follows and participates in conversation appropriately. Respiratory effort is unlabored. No cough. Able to transition from sit to stand unassisted. Ambulates with bilaterally normal heel strike and toe off. Back/Spine/Pelvis Other: Limited lumbar ROM, with lumbar extension and bending reproducing baseline pain at 8/10. Demonstrates 5/5 strength of quadriceps bilaterally as well as flexion/dorsiflexion of bilateral feet against resistance. 2+ pedal pulses bilaterally. Seated straight leg rise with dorsiflexion negative bilaterally. +2 patellar and achilles reflexes bilaterally. Facet loading test positive bilaterally. Joseline sign, Bernardo?s, Gaenslen, Pelvic compression and Stinchfield tests are positive bilaterally, worse on the left, mild on the right. No groin pain with I/E hip rotations. Mild TTP on left GTB. Cervical Spine: cervical ROM normal and No Cervical spine tenderness Thoracic/Lumbar Spine: thoracic and lumbar spine normal to inspection, No Thoracic/lumbar spine scar(s), Lasegue's sign negative, straight leg raise neg ative bilaterally, pain with thoraco-lumbar ROM, paraspinal muscle tenderness, No thoracic spinal tenderness and lumbar spinal tenderness (L4-S1) Pelvis: buttock tenderness bilaterally Sacroiliac joints: bilaterally tender to palpation Results Reviewed Results Reviewed: CT thoracic spine wo IV con, CT lumbar spine wo IV con 03/24/23 FINDINGS: No fracture or subluxation. Vertebral body height and alignment maintained with small endplate osteophytes throughout the thoracolumbar spine. Mild disc space narrowing seen at L4-L5 and L5-S1. Vacuum disc phenomenon at L5-S1. The posterior elements are intact. The sacroiliac joints are symmetric. The visualized sacrum is intact. The visualized lungs are clear. The visualized mediastinum shows no acute abnormality. The visualized portion of the abdomen shows no acute finding. No lymphadenopathy. IUD in the uterus. The paraspinal musculature is unremarkable. Although evaluation of the spinal levels is limited on noncontrast CT, there is evidence of disc bulge with ligamentum flavum hypertrophy at L3-L4 and L4-L5 resulting in narrowing of the spinal canal at these levels. IMPRESSION: 1. Mild degenerative changes throughout the thoracolumbar spine. 2. Disc bulge with ligamentum flavum hypertrophy at L3-L4 and L4-L5 resulting in narrowing of the spinal canal at these levels. Lumbar spine 3 views dorsal spine 2 views 01/19/23 FINDINGS: Diffuse endplate spurring throughout the lumbar spine consistent with degenerative disc disease. Moderate disc space narrowing L5 and S1. IUD in place. No gross migration. No fracture or spondylolysis. Dorsal spine imaging demonstrates similar generalized endplate spurring but preservation of vertebral heights and disc spaces. No subluxation. IMPRESSION: Degenerative disc disease as above. No fracture. Assessment & Plan Assessment & Plan (1) Lumbar degenerative disc disease: Code(s): M51.36 - Other intervertebral disc degeneration, lumbar region (2) Sacroiliac joint pain: Code(s): M53.3 - Sacrococcygeal disorders, not elsewhere classified (3) Lumbosacral spondylosis: Code(s): M47.817 - Spondylosis without myelopathy or radiculopathy, lumbosacral region (4) Lumbar back pain with radiculopathy affecting left lower extremity: Code(s): M54.16 - Radiculopathy, lumbar region Plan 1. Patient is status post diagnostic SIJ injections, with good results for left side and no pain relief for the right side. She would like to hold off on on interventional treatments for axial low back pain and consider sedation in the future. 2. Patient will proceed with chiropractic therapy and adjustments for low back and SIJ pain with radicular and discogenic components and mild leg discrepancy. All questions and concerns have been answered and patient agreed with the plan. Follow up after chiropractic therapy and sooner if needed. Coding Level of Care Code Est Pt Level 3 (41241) Diagnoses Lumbar degenerative disc disease M51.36 Sacroiliac joint pain M53.3 Lumbosacral spondylosis M47.817 Lumbar back pain with radiculopathy affecting left lower extremity M54.16
[2023-08-21 13:00] VITALS: BP 108/61; PULSE 88; O2SAT 97; BMI 31.3
== END 2023-08-21 13:17 | disposition home or self-care (01) ==
PROVIDERS: PCP Internal Medicine; Visit Provider Nurse Practitioner Family
DX: M51.36 Other intervertebral disc degeneration, lumbar region (principal); M53.3 Sacrococcygeal disorders, not elsewhere classified; M47.817 Spondylosis without myelopathy or radiculopathy, lumbosacral region; M54.16 Radiculopathy, lumbar region
CPT/HCPCS: 99213

== ENCOUNTER → 2023-08-21 12:41 | Outpatient (BNVA) | payer OTHER, SELFPAY | PROVIDERS: PCP Internal Medicine; Visit Provider Nurse Practitioner Family | DX: M51.36 Other intervertebral disc degeneration, lumbar region (principal); M53.3 Sacrococcygeal disorders, not elsewhere classified; M47.26 Other spondylosis with radiculopathy, lumbar region | CPT/HCPCS: 99212 ==

== ENCOUNTER 2023-08-24 10:06 | Outpatient (AMB) | payer OTHER, SELFPAY ==
[2023-08-24 10:08] VITALS: BP 126/80; PULSE 100; TEMP 36.8; O2SAT 99; BMI 30.9
--- NOTE | 2023-08-24 10:08 | AM.OFFWIN_ITS ---
Intake Vital Signs 08/24/23 10:08 Height 5 ft 3 in Weight 174 lb 8 oz BMI 30.9 BP 126/80 Blood Pressure Location Rt brachial Position Sitting Pulse 100 Pulse Source Pulse Oximeter Temp 98.3 F Temp Source Temporal Artery Scan Pulse Oximetry (%) 99 Oxygen Delivery Method Room Air Intake Visit Reasons: EP Flu like symptoms (masked) Intake Note: pt is here for c/o body aches, ear pain Patient Tobacco Use Status: Former Tobacco user Allergies naproxen [From NAPROSYN] Adverse Reaction (Unknown, Verified 08/24/23 10:08) STOMACH UPSET Do you need a note to return to daycare/school/sports/work: Yes HPI HPI Comments History of Present Illness Details This is a 53-year-old female who presents to the office today for sick visit. Patient complaining of viral URI symptoms including myalgias, sore throat, congestion, rhinorrhea, and productive cough with clear sputum. She denies any fever/chills. She denies any significant chest pain but does have some musculoskeletal pain due to coughing. She denies shortness of breath. She reports some musculoskeletal abdominal pain due to coughing but denies nausea/vomiting/diarrhea. [facility] Medical History COVID-19 vaccination declined Hx of dysfunctional uterine bleeding History of use of contraceptive intrauterine device (IUD) Mild intermittent asthma Cochlear implant in place COVID-19 virus infection Nephrolithiasis Vitamin D deficiency Obesity (BMI 30-39.9) Hearing loss associated with syndrome of both ears Surgical History Hx of esophagogastroduodenoscopy History of cochlear implant Family History Father Diabetes mellitus HTN (hypertension) Hyperlipidemia Mother HTN (hypertension) Hyperlipidemia Diabetes mellitus Social History Housing: Apartment Patient Tobacco Use Status: Former Tobacco user e-Cigarette/Vaping Use: Never Used service: No Current occupational status: unemployed Cognitive needs: No Hearing needs: No Vision needs: No Review of Systems Const All systems reviewed & are unremarkable except as noted in HPI and below Reports no additional complaints Eyes Reports no additional complaints ENT Reports no additional complaints Card Reports no additional complaints Resp Reports no additional complaints GI Reports no additional complaints Reports no additional complaints Musc Reports no additional complaints Skin/Breast Reports system reviewed and no additional complaints, except as documented Neuro Reports no additional complaints Psych Reports no additional complaints Endo Reports no additional complaints Silvio/Lymph Reports no additional complaints Aller/Immun Reports no additional complaints Physical Exam Vital Signs: Last Vital Signs Temp 98.3 F 08/24/23 10:08 Pulse 100 08/24/23 10:08 BP 126/80 08/24/23 10:08 Pulse Ox 99 08/24/23 10:08 Oxygen Delivery Method Room Air 08/24/23 10:08 BMI result Body Mass Index 30.9 Const Other: Vital signs reviewed. Constitutional: Non-toxic appearing. No acute distress. Well-developed and well-nourished. HEENT: Normocephalic and atraumatic. Tympanic membranes without erythema, edema, or bulging bilaterally. External auditory canals without erythema or edema bilaterally. Moist mucous membranes. Mild posterior pharyngeal erythema but no exudates, uvular deviation, or peritonsillar mass/abscess. Skin: Warm and dry. No rashes or lesions noted. Neck: Full and painless range of motion. No cervical lymphadenopathy. Cardio: Regular rate and rhythm. No murmurs, gallops, or rubs. No lower extremity edema. No JVD. Pulmonary: No respiratory distress. No accessory muscle usage. Clear to auscultation bilaterally without wheezing, crackles, or rhonchi. Gastrointestinal: Soft, nontender, and nondistended in all 4 quadrants. Normoactive bowel sounds in all 4 quadrants. Genitourinary: No CVA tenderness. Musculoskeletal: Normal range of motion in joints throughout the body. No defor mity or other signs of injury. Neuro: Alert and oriented x4. Cranial nerves 2-12 grossly intact. No focal deficits appreciated. Psych: Normal mood and affect. Assessment & Plan Assessment & Plan (1) Viral URI with cough: Code(s): J06.9 - Acute upper respiratory infection, unspecified Plan: This is a 53-year-old female presenting to the office complaining of viral URI symptoms. Patient's physical examination is completely benign, or vital signs are stable, and she is overall nontoxic appearing. History and physical most consistent with acute respiratory tract infection. Recommended symptomatic management including rest, increased fluids, advil/tylenol for pain/fever, and over the counter throat lozenges/decongestants. Patient was reassured that this is likely self-limiting illness. I have very low suspicion for bacterial rhinosinusitis versus pneumonia. Check COVID/flu/RSV. Patient advised to follow up here or go to the emergency room for worsening/persistent symptoms. Patient verbalized understanding and is agreeable with the plan. Orders: Orders SARS-CoV2/FLU/RSV Today R09.89 - Other specified symptoms and signs involving the circulatory and respiratory systems Coding Level of Care Code Est Pt Level 3 (67430) Diagnoses Viral URI with cough J06.9
== END 2023-08-24 10:35 | disposition home or self-care (01) ==
PROVIDERS: PCP Internal Medicine; Visit Provider Physician Assistant Medical
DX: J06.9 Acute upper respiratory infection, unspecified (principal)
CPT/HCPCS: 99213

== ENCOUNTER 2023-08-24 11:04 | Outpatient (REF) | payer OTHER, SELFPAY ==
[2023-08-24 15:33] LABS: Influenza A PCR NEGATIVE (Negative); Influenza B PCR NEGATIVE (Negative); Resp Syncy Virus RNA Qual PCR NEGATIVE (Negative); SARS COV2 PCR INHOUSE NEGATIVE (Negative)
== END 2023-08-24 11:05 | disposition home or self-care (01) ==
LOC: HO.LAB 11:04
PROVIDERS: Visit Provider Physician Assistant Medical
DX: Z11.52 Encounter for screening for COVID-19 (principal); R09.89 Other specified symptoms and signs involving the circulatory and respiratory systems
CPT/HCPCS: 0241U

== ENCOUNTER 2023-11-09 10:03 | Outpatient (AMB) | payer OTHER, SELFPAY ==
[2023-11-09 10:51] VITALS: BP 126/80; PULSE 78; O2SAT 98; BMI 30.6
--- NOTE | 2023-11-09 10:51 | AM.OFFWIN_ITS ---
Intake Vital Signs 11/09/23 10:51 Height 5 ft 3 in Weight 172 lb 8 oz BMI 30.6 BP 126/80 Blood Pressure Location Lt brachial Position Sitting Pulse 78 Pulse Source Pulse Oximeter Pulse Oximetry (%) 98 Oxygen Delivery Method Room Air Intake Visit Reasons: EP RT side breast pain Patient Tobacco Use Status: Former Tobacco user Allergies naproxen [From NAPROSYN] Adverse Reaction (Unknown, Verified 11/09/23 10:52) STOMACH UPSET Medication List - Last Reconciled 11/09/23 by Amarilys Hodges MD acetaminophen 1,000 mg (2 x 500 mg) PO Q6H PRN albuterol sulfate 90 mcg/actuation (Ventolin HFA) 1 inh inhalation QID PRN amlodipine 10 mg PO DAILY budesonide-formoterol 160-4.5 mcg/actuation (Symbicort) 1 puff inhalation BID cetirizine 10 mg PO DAILY cholecalciferol (vitamin D3) 1,250 mcg PO QWEEK 3 months lisinopril 10 mg PO DAILY omeprazole 40 mg PO DAILY Do you need a note to return to daycare/school/sports/work: No HPI EP RT side breast pain HPI Details Patient is a 53-year-old female came in today with a chief complaint of bilateral chest pain for the past 24 hours Patient is left-handed and deny lifting anything heavy or cleaning the house. Patient says that she does not know what is causing the discomfort Patient says that it hurts to take a deep breath She has a history of arthritis On examination patient have tenderness with pressure over the chest wall both side anteriorly Breast exam is benign Lungs are clear I am treating her with omeprazole 20 mg b.i.d. Motrin 400 mg b.i.d. with food and cyclobenzaprine 5 mg b.i.d. for 7 days I will also do a chest x-ray Follow-up with the primary care Patient is asthmatic and does not have any flare up of asthma at this time Review system: There is no nausea vomiting diarrhea, there is no fever no chills no shortness a breath no headache no body aches and pains [facility] Medical History COVID-19 vaccination declined Hx of dysfunctional uterine bleeding History of use of contraceptive intrauterine device (IUD) Mild intermittent asthma Cochlear implant in place COVID-19 virus infection Nephrolithiasis Vitamin D deficiency Obesity (BMI 30-39.9) Hearing loss associated with syndrome of both ears Surgical History Hx of esophagogastroduodenoscopy History of cochlear implant Family History Father Diabetes mellitus HTN (hypertension) Hyperlipidemia Mother HTN (hypertension) Hyperlipidemia Diabetes mellitus Social History Housing: Apartment Patient Tobacco Use Status: Former Tobacco user e-Cigarette/Vaping Use: Never Used service: No Current occupational status: unemployed Cognitive needs: No Hearing needs: No Vision needs: No Review of Systems Const All systems reviewed & are unremarkable except as noted in HPI and below Physical Exam Vital Signs: Last Vital Signs Pulse 78 11/09/23 10:51 BP 126/80 11/09/23 10:51 Pulse Ox 98 11/09/23 10:51 Oxygen Delivery Method Room Air 11/09/23 10:51 BMI result Body Mass Index 30.6 Const General: no acute distress Orientation/consciousness: patient oriented x3 Eyes General: appearance normal, both eyes and all related structures Chest Other: Chest wall tenderness with pressure bilateral, breast exam is benign Resp Effort & Inspection: normal respiratory effort and able to speak in complete sentences Auscultation: clear to auscultation bilaterally Cardio Other: S1 S2 Neuro General: patient oriented x3 Psych Mental Status: mental status grossly normal Assessment & Plan Assessment & Plan (1) Non-cardiac chest pain: Code(s): R07.89 - Other chest pain (2) Costochondritis, acute: Code(s): M94.0 - Chondrocostal junction syndrome [Tietze] Plan Patient is a 53-year-old female came in today with a chief complaint of bilateral chest pain for the past 24 hours Patient is left-handed and deny lifting anything heavy or cleaning the house. Patient says that she does not know what is causing the discomfort Patient says that it hurts to take a deep breath She has a history of arthritis On examination patient have tenderness with pressure over the chest wall both side anteriorly Breast exam is benign Lungs are clear I am treating her with omeprazole 20 mg b.i.d. Motrin 400 mg b.i.d. with food and cyclobenzaprine 5 mg b.i.d. for 7 days I will also do a chest x-ray Follow-up with the primary care Patient is asthmatic and does not have any flare up of asthma at this time Review system: There is no nausea vomiting diarrhea, there is no fever no chills no shortness a breath no headache no body aches and pains Orders: Orders XR chest 2V Today R07.89 - Other chest pain Medications: New ibuprofen (Motrin IB) Take with food 400 mg (2 x 200 mg) PO BID 28 tabs 0RF pain 7 days omeprazole 20 mg PO BID 14 caps 0RF 7 days cyclobenzaprine 5 mg PO BID 14 tabs 0RF 7 days Coding Level of Care Code Est Pt Level 4 (28261) Diagnoses Non-cardiac chest pain R07.89 Costochondritis, acute M94.0
== END 2023-11-09 11:03 | disposition home or self-care (01) ==
PROVIDERS: PCP Internal Medicine; Visit Provider Internal Medicine
DX: R07.89 Other chest pain (principal); M94.0 Chondrocostal junction syndrome [Tietze]
CPT/HCPCS: 99214

== ENCOUNTER 2023-11-09 11:05 | Outpatient (REF) | payer OTHER, SELFPAY ==
--- NOTE | ~2023-11-09 | XR_ITS ---
EXAMINATION: XR CHEST CLINICAL INFORMATION: Chest pain COMPARISON: None available. TECHNIQUE: 2 views of the chest were obtained. FINDINGS: No significant abnormality is noted involving the heart, lungs, mediastinum, bony thorax or soft tissues. XR/XR chest 2V IMPRESSION: Unremarkable chest examination.
== END 2023-11-09 11:06 | disposition home or self-care (01) ==
LOC: HO.HMGCX 11:05
PROVIDERS: PCP Internal Medicine; Visit Provider Internal Medicine
DX: R07.89 Other chest pain (principal)
CPT/HCPCS: 71046

== ENCOUNTER 2024-01-22 11:22 | Outpatient (AMB) | payer OTHER, SELFPAY ==
[2024-01-22 11:27] VITALS: BP 120/74; PULSE 91; O2SAT 99; BMI 31.4
--- NOTE | 2024-01-22 11:27 | MHC.PC.OV ---
Vital Signs 01/22/24 11:27 Height 5 ft 3 in Weight 177 lb BMI 31.4 BP 120/74 Blood Pressure Location Rt brachial Position Sitting Pulse 91 Pulse Source Pulse Oximeter Pulse Oximetry (%) 99 Oxygen Delivery Method Room Air Intake Visit Reasons: 6 month fu Intake Note: Pt is here today for her 6 months f/u: Also pt c/o ? pink eye and cough Allergies naproxen [From NAPROSYN] Adverse Reaction (Unknown, Verified 01/22/24 14:44) STOMACH UPSET Medication List - Last Reconciled 01/22/24 by Savanna Kramer MD acetaminophen 1,000 mg (2 x 500 mg) PO Q6H PRN albuterol sulfate 90 mcg/actuation (Ventolin HFA) 1 inh inhalation QID PRN amlodipine 10 mg PO DAILY budesonide-formoterol 160-4.5 mcg/actuation (Symbicort) 1 puff inhalation BID cetirizine 10 mg PO DAILY estradiol 0.01%(0.1mg/gram) vaginal ibuprofen (Motrin IB) 400 mg (2 x 200 mg) PO BID 7 days lisinopril 10 mg PO DAILY omeprazole 20 mg PO BID 7 days Tobacco use date assessed: 01/22/24 Dental Screening Dental Screen Date: 01/22/24 Did you have a dental visit in the last 12 months?: No Was dental information given to patient?: Patient has dentist HPI 6 month fu HPI Details 53-year-old lady with hypertension, and bronchial asthma, here today for follow-up. She has only been using albuterol inhaler for her asthma, needing to use it almost on a daily basis. Now complaining dry cough with no wheezing, accompanied by nasal congestion postnasal drainage and overall feeling unwell, but no fever, which has been present now for the last 4 days. She also complains of burning and itching in both eyes. She has been prescribed Symbicort in the past but patient states that she never filled it, likely due to it not being covered by her insurance. [facility] Medical History (Updated 01/22/24 @ 15:07 by Savanna Kramer MD) Bronchial asthma COVID-19 vaccination declined Hx of dysfunctional uterine bleeding History of use of contraceptive intrauterine device (IUD) Mild intermittent asthma Cochlear implant in place COVID-19 virus infection Nephrolithiasis Vitamin D deficiency Obesity (BMI 30-39.9) Hearing loss associated with syndrome of both ears Surgical History Hx of esophagogastroduodenoscopy History of cochlear implant Family History Father Diabetes mellitus HTN (hypertension) Hyperlipidemia Mother HTN (hypertension) Hyperlipidemia Diabetes mellitus Social History Housing: Apartment Patient Tobacco Use Status: Former Tobacco user e-Cigarette/Vaping Use: Never Used service: No Current occupational status: unemployed Cognitive needs: No Hearing needs: No Vision needs: No Questionnaire PHQ-9 Over the last 2 weeks, how often have you been bothered by any of the following problems? Depression Screening Interpretation: Negative Depression Screening Done: Yes Source: Developed by Drs. Stephen Munoz, Farrah Acosta, Pollo Mireles and colleagues, with an educational nancy from [employer] Thrive Questionnaire Date Thrive assessed: 07/19/23 I am a: Patient What is your living situation today?: I have a steady place to live Within the past 12 months, did the food you bought not last and you didn't have the money to get more?: I choose not to answer this question Within the past 12 months, did you worry whether your food would run out before you got money to buy more?: Never true THRIVE Score: 0 AUDIT C Alcohol Use Questionnaire (AUDIT-C) 1. How often do you have a drink containing alcohol?: Monthly or less 2. How many drinks containing alcohol do you have on a typical day when you are drinking?: 1 or 2 3. How often do you have six or more drinks on one occasion?: Less than monthly Total Score: 2 ANNE MARIE-7 AMB Questionnaire ANNE MARIE-7 Date ANNE MARIE - 7 assessed: 07/19/23 Feeling nervous, anxious, or on edge: 3 = Nearly every day Not being able to stop or control worryin = Several days Worrying too much about different things: 1 = Several days Trouble relaxin = Several days Being so restless that it is hard to sit still: 3 = Nearly every day Becoming easily annoyed or irritable: 1 = Several days Feeling afraid as if something awful might happen: 0 = Not at all Total ANNE MARIE-7 score (0-4 normal; 5-9 mild; 10-14 moderate; 15-21 severe): 10 Source: Developed by Drs. Stephen Munoz, Farrah Acosta, Pollo Mireles and colleagues, with an educational nancy from [employer] Review of Systems Const All systems reviewed & are unremarkable except as noted in HPI and below Physical exam (Primary Care) Vital Signs: Last Vital Signs Pulse 91 01/22/24 11:27 BP 120/74 01/22/24 11:27 Pulse Ox 99 01/22/24 11:27 Oxygen Delivery Method Room Air 01/22/24 11:27 BMI result Body Mass Index 31.4 BMI Assessment/Plan discussion: High BMI High, discussed plan: lifestyle, weight reduction, dietary and physical activity Tobacco/Smoking Status: Tobacco use Status Tobacco use date assessed 01/22/24 01/22/24 11:43 Patient Tobacco Use Status Former Tobacco user 01/22/24 11:28 e-Cigarette/Vaping Use Never Used 01/22/24 11:28 Depression Screening Interpretation: Negative Thrive Assessment: Date of Thrive Assessment Date Thrive assessed 07/19/23 01/22/24 11:28 Const General: no acute distress and alert Nutritional Appearance: obese Orientation/consciousness: patient oriented x3 HENMT Head: Yes normocephalic and Yes atraumatic Ears: external ears normal, TM's normal bilaterally and EAC's normal General nose exam: Normal external nose present and Abnormal mucous membranes and turbinates present boggy and pale Face and sinus: Yes sinuses nontender Mouth: Normal oral and palatal mucosa present, oropharynx normal and moist mucous membranes Eyes Other: Mild conjunctival injection bilateral, no discharge General: appearance normal, both eyes and all related structures Periorbital: periorbital findings normal Eyelids: Yes eyelids normal Sclerae: sclerae normal Pupils: Equal, round and reactive pupils present EOM: EOMs intact bilaterally Neck Neck: Yes full ROM, Yes no lymphadenopathy and Yes supple Resp Effort & Inspection: normal respiratory effort and able to speak in complete sentences Auscultation: clear to auscultation bilaterally Cardio Rate: regular rate Rhythm: regular rhythm Heart sounds: S1 normal heart sound present and S2 normal heart sound present Neuro General: patient oriented x3, gait normal, tone normal, moves all extremities, Normal light touch and pain sensation, no focal motor deficits and CN's II-XI intact bilaterally Cranial nerves: Yes Equal, round and reactive pupils present Cognition (Neuro): normal cognition Gait exam (Neuro): Normal gait present Extrem General: Yes full ROM, Yes no joint enlargement, Yes no clubbing, cyanosis or edema and Yes normal gait Psych Appearance: grossly normal and well kempt Mental Status: mental status grossly normal Speech and movement: Normal speech and movement present Affect: normal affect Attitude: cooperative Thought process: Normal thought process present Assessment and Plan Assessment & Plan (1) Allergic conjunctivitis: Code(s): H10.10 - Acute atopic conjunctivitis, unspecified eye Qualifiers: Laterality: bilateral Qualified Code(s): H10.13 - Acute atopic conjunctivitis, bilateral Plan: Prescription sent for ketotifen eyedrops to instill 1 drop twice a day to both eyes, refill prescription sent for cetirizine 10 mg to take 1 tablet daily at night (2) Cough: Code(s): R05.9 - Cough, unspecified Qualifiers: Cough type: acute Qualified Code(s): R05.1 - Acute cough Plan: Obtain SARS-COv-2/ flu/ RSV culture. (3) Bronchial asthma: Code(s): J45.909 - Unspecified asthma, uncomplicated Qualifiers: Asthma severity: mild Asthma persistence: persistent Asthma complication type: uncomplicated Qualified Code(s): J45.30 - Mild persistent asthma, uncomplicated Plan: Prescription sent for Asmanex Twisthaler 2 inhalations at night, rinse mouth after use, prescription sent for prednisone 20 mg per tablet to take once a day in a.m. with food or milk for 5 days Orders: Orders SARS-CoV2/FLU/RSV Today R05.9 - Cough, unspecified, R09.89 - Other specified symptoms and signs involving the circulatory and respiratory systems Medications: New ketotifen fumarate 0.025%(0.035%) administer at least 8 hours apart 1 drp ophthalmic (eye) BID 5 mL 0RF H10.10 - Acute atopic conjunctivitis, unspecified eye mometasone (Asmanex Twisthaler) 2 inhalations inhalation QPM 1 ea 5RF cetirizine 10 mg PO DAILY 30 tabs 0RF prednisone Take in the morning with breakfast 20 mg PO DAILY 5 tabs 0RF Coding Level of Care Code Est Pt Level 4 (30032) Diagnoses Allergic conjunctivitis of both eyes H10.13 Laterality: bilateral Acute cough R05.1 Cough type: acute Mild persistent asthma without complication J45.30 Asthma severity: mild Asthma persistence: persistent Asthma complication type: uncomplicated
== END 2024-01-22 12:42 | disposition home or self-care (01) ==
PROVIDERS: PCP Internal Medicine; Visit Provider Internal Medicine
DX: H10.13 Acute atopic conjunctivitis, bilateral (principal); R05.1 Acute cough; J45.30 Mild persistent asthma, uncomplicated
CPT/HCPCS: 99214

== ENCOUNTER 2024-01-22 12:27 | Outpatient (REF) | payer OTHER, SELFPAY ==
[2024-01-22 14:32] LABS: Influenza A PCR NEGATIVE (Negative); Influenza B PCR NEGATIVE (Negative); Resp Syncy Virus RNA Qual PCR NEGATIVE (Negative); SARS COV2 PCR INHOUSE NEGATIVE (Negative)
== END 2024-01-22 12:28 | disposition home or self-care (01) ==
LOC: HO.LAB 12:27
PROVIDERS: Visit Provider Internal Medicine
DX: Z11.52 Encounter for screening for COVID-19 (principal); R05.9 Cough, unspecified; R09.89 Other specified symptoms and signs involving the circulatory and respiratory systems
CPT/HCPCS: 0241U

== ENCOUNTER 2024-01-23 11:03 | Outpatient (AMB) | payer OTHER, SELFPAY ==
[2024-01-23 11:05] VITALS: BP 120/76; PULSE 98; O2SAT 98; BMI 31.5
--- NOTE | 2024-01-23 11:05 | AM.OFFWIN_ITS ---
Intake Vital Signs 01/23/24 11:05 Height 5 ft 3 in Weight 178 lb 2 oz BMI 31.5 BP 120/76 Blood Pressure Location Lt brachial Position Sitting Pulse 98 Pulse Source Pulse Oximeter Pulse Oximetry (%) 98 Oxygen Delivery Method Room Air Intake Visit Reasons: EP elevated HR and chest discomfort Intake Note: Pt presents to the office today for elevated HR and chest discomfort. Pt states she has a little chest discomfort and she states she is dizzy. 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 Patient states she is present because high blood pressure She said hx of it and on amlodipine Taking medicine as prescribed everyday She states symptoms are chest pain, headache Pulse was 105 at home She has felt the chest pain since today at 8am when doing laundry She said current CP is 4/5 out of 10 and it is constant Describes as burning She denies similar symptoms before She admits to feeling sick this week as well with sore throat, congestion + cough and dyspnea PFSH Medical History Bronchial asthma COVID-19 vaccination declined Hx of dysfunctional uterine bleeding History of use of contraceptive intrauterine device (IUD) Mild intermittent asthma Cochlear implant in place COVID-19 virus infection Nephrolithiasis Vitamin D deficiency Obesity (BMI 30-39.9) Hearing loss associated with syndrome of both ears Surgical History Hx of esophagogastroduodenoscopy History of cochlear implant Family History Father Diabetes mellitus HTN (hypertension) Hyperlipidemia Mother HTN (hypertension) Hyperlipidemia Diabetes mellitus Social History Housing: Apartment Patient Tobacco Use Status: Former Tobacco user e-Cigarette/Vaping Use: Never Used service: No Current occupational status: unemployed Cognitive needs: No Hearing needs: No Vision needs: No Review of Systems Const Denies chills, Reports fatigue, Denies fever(s) and Reports headache(s) ENT Denies dizziness, Denies otalgia, Reports headache(s), Reports nasal discharge and Reports sore throat Card Reports chest pain, Denies rapid heart rate and Reports dyspnea Resp Reports chest congestion, Reports cough and Reports dyspnea GI Denies abdominal pain Neuro Denies dizziness and Reports headache(s) Endo Reports fatigue Physical Exam Vital Signs: Last Vital Signs Pulse 98 01/23/24 11:05 BP 120/76 01/23/24 11:05 Pulse Ox 98 01/23/24 11:05 Oxygen Delivery Method Room Air 01/23/24 11:05 BMI result Body Mass Index 31.5 General: Non-toxic, NAD. Speaking full sentences. Skin: Warm dry throughout Eye: EOMI, PERRL HENT: Airway patent. Uvula midline. No pharyngeal erythema or edema. No CELLOPHANER. +rhinorrhea Bilateral canals clear. TM non-erythematous, non-bulging. No TM perforation or hemotympanum noted. Respiratory: CTA bilaterally. No wheezes, rales or rhonchi Cardiac: RRR. No murmur MSK: Full ROM extremities. Neurology: A. No aphasia or facial droop. Gait without abnormality Psych: Good mood and affect Assessment & Plan Assessment & Plan (1) Chest pain: Code(s): R07.9 - Chest pain, unspecified Qualifiers: Chest pain type: other chest pain Qualified Code(s): R07.89 - Other chest pain Plan: EKG + sinus 94bpm with flattening T wave ad inverted in II and V1. + new prolong QT Discussed with network and threat support specialist need for labs and she agreed boyfriend will bring Refused ambulance [facility] got expect We discussed plan for further labs in ER with network and threat support specialist. Pt had no additional questions (2) Prolonged QT interval: Code(s): R94.31 - Abnormal electrocardiogram [ECG] [EKG] Plan: see above Orders: Orders AMB EKG-In Office Today R07.9 - Chest pain, unspecified Coding Level of Care Code Est Pt Level 4 (26155) Diagnoses Other chest pain R07.89 Chest pain type: other chest pain Prolonged QT interval R94.31
== END 2024-01-23 12:42 | disposition home or self-care (01) ==
PROVIDERS: PCP Internal Medicine; Visit Provider Physician Assistant
DX: R07.89 Other chest pain (principal); R94.31 Abnormal electrocardiogram [ECG] [EKG]
CPT/HCPCS: 93000; 99214

== ENCOUNTER 2024-01-23 12:11 | Emergency (ER) | payer OTHER, SELFPAY ==
--- NOTE | ~2024-01-23 | XR_ITS ---
EXAMINATION: XR CHEST CLINICAL INFORMATION: Chest pain and cough COMPARISON: Previous chest x-ray October 2023 TECHNIQUE: 2 views of the chest were obtained. FINDINGS: No significant abnormality is noted involving the heart, lungs, mediastinum, bony thorax or soft tissues. XR/XR chest 2V IMPRESSION: Unremarkable examination.
--- NOTE | 2024-01-23 12:12 | ECG_ITS ---
Test Reason : cp Blood Pressure : / mmHG Vent. Rate : 100 BPM Atrial Rate : 100 BPM P-R Int : 128 ms QRS Dur : 076 ms QT Int : 358 ms P-R-T Axes : 059 036 -18 degrees QTc Int : 461 ms Normal sinus rhythm Nonspecific ST and T wave abnormality Prolonged QT Abnormal ECG When compared with ECG of 31-OCT-2022 22:28, Premature supraventricular complexes are no longer Present Nonspecific T wave abnormality, worse in Anterior leads Referred By: Mayela Palmer Electronically Signed By:Lorenzo Narayanan
[2024-01-23 12:56] VITALS: BP 132/75; PULSE 95; RESP 17; TEMP 36.8; O2SAT 100; BMI 31.7
--- NOTE | 2024-01-23 12:57 | ED.CHESTPAIN ---
HPI - Chest Pain General Chief Complaint: Chest Pain Stated Complaint: Chest Pain Sent By Williams Time Seen by Provider: 01/23/24 22:31 Source: patient Mode of arrival: ambulatory Limitations: no limitations History of Present Illness HPI narrative: Patient comes to the emergency room complaining of coughing for 4-5 days. Patient states that she went to see her primary care physician, sent to her pharmacy a prescription of albuterol and prednisone. However, an EKG was done in the office and they noted an abnormality, asked the patient to come to the emergency room for further evaluation. Patient states that the cough is only when she coughs. Otherwise denies chest pain or shortness of breath. Denies nausea vomiting, no fever or chills. Related Data Home Medications Medication Instructions Recorded Confirmed budesonide-formoterol HFA 160 1 puff inhalation BID 07/19/23 11/09/23 mcg-4.5 mcg/actuation aerosol inhaler (Symbicort) estradiol 0.01% (0.1 mg/gram) vaginal 01/22/24 01/22/24 vaginal cream Previous Rx's Medication Instructions Recorded lisinopril 10 mg tablet 10 mg PO DAILY #30 tabs 03/23/22 acetaminophen 500 mg capsule 1,000 mg (2 x 500 mg) PO Q6H PRN 01/19/23 pain #30 caps albuterol sulfate 90 mcg/actuation 1 inh inhalation QID PRN shortness 07/21/23 aerosol inhaler (Ventolin HFA) of breath or wheezing #8.5 grams ibuprofen 200 mg tablet (Motrin IB) 400 mg (2 x 200 mg) PO BID pain 7 11/09/23 days #28 tabs omeprazole 20 mg capsule,delayed 20 mg PO BID 7 days #14 caps 11/09/23 release amlodipine 10 mg tablet 10 mg PO DAILY #30 tabs 12/30/23 cetirizine 10 mg tablet 10 mg PO DAILY #30 tabs 01/22/24 ketotifen fumarate 0.025 % (0.035 1 drp ophthalmic (eye) BID #5 mL 01/22/24 %) eye drops mometasone 220 mcg/actuation(14 2 inh inhalation QPM #1 ea 01/22/24 doses) breath activated powder inhaler (Asmanex Twisthaler) prednisone 20 mg tablet 20 mg PO DAILY #5 tabs 01/22/24 codeine 7.5 mg-guaifenesin 225 5 ml PO Q6H PRN cough #473 mL 01/23/24 mg/5 mL oral liquid Allergies Allergy/AdvReac Type Severity Reaction Status Date / Time naproxen [From NAPROSYN] AdvReac Unknown STOMACH Verified 01/23/24 11:07 UPSET Review of Systems Review of Systems: Constitutional : No Weight loss, No Fever, No Chills, No Night Sweats, No Fatigue, No Malaise ENT/Mouth : No Hearing loss, No Ear Pain, No Nasal Congestion, No Sinus Pain, No Hoarseness, No sore throat, No Rhinorrhea, No Swallowing Difficulty Eyes: No Eye Pain, No Swelling, No Redness, No Foreign Body, No Discharge, No Vision Changes Cardiovascular : Chest pain with coughing only, No SOB, No Dyspnea on Exertion, No Orthopnea, No Edema, No Palpitations Respiratory : Complaining of dry cough, wheezing, shortness of breath Gastrointestinal : No Nausea, No Vomiting, No Diarrhea, No Constipation, No abdominal Pain, No Hematochezia, No Melena Genitourinary : no irregular bleeding, No Dysuria, No Urinary Frequency, No Hematuria, No Urinary Incontinence, No Urgency, No Flank Pain, No Urinary Flow Changes, No Hesitancy Musculoskeletal : No joint pain, No Myalgias, No Joint Swelling Skin : No Skin Lesions, No rash Neuro : No Weakness, No Numbness, No Paresthesias, No Loss of Consciousness, No Dizziness, No Headache Psych : No Anxiety/Panic, No Depression, No SI/HI/AH/VH, No Social Issues, Heme/Lymph: No Bruising, No Bleeding,No Lymphadenopathy Endocrine : No Polyuria, No Polydipsia, No Temperature Intolerance PMFSH Past Medical History Medical History Bronchial asthma COVID-19 vaccination declined Hx of dysfunctional uterine bleeding History of use of contraceptive intrauterine device (IUD) Mild intermittent asthma Cochlear implant in place COVID-19 virus infection Nephrolithiasis Vitamin D deficiency Obesity (BMI 30-39.9) Hearing loss associated with syndrome of both ears Surgical History Hx of esophagogastroduodenoscopy History of cochlear implant Family History Family History Father Diabetes mellitus HTN (hypertension) Hyperlipidemia Mother HTN (hypertension) Hyperlipidemia Diabetes mellitus Social History Social History Housing: Apartment Patient Tobacco Use Status: Former Tobacco user e-Cigarette/Vaping Use: Never Used service: No Current occupational status: unemployed Cognitive needs: No Hearing needs: No Vision needs: No Physical Exam Vital Signs: Vital Signs: Last Vital Signs Temp 98.3 F 01/23/24 22:27 Pulse 93 01/23/24 22:27 Resp 16 01/23/24 22:27 BP 119/74 01/23/24 22:27 Pulse Ox 96 01/23/24 22: O2 Del Method Room Air 01/23/24:27 BMI result Body Mass Index 31.7 Const: Other: Appearance: Alert. Oriented X3. No acute distress. Eyes: Pupils equal, round and reactive to light. ENT: Pharynx normal. Neck: Normal inspection. Neck supple. No lymph nodes noted. No crepitus CVS: Normal heart rate and rhythm. Pulses normal. Normal S1 and S2, chest pain to palpation, reproducible Respiratory: No respiratory distress. Breath sounds normal. No Wheezing. No rales Abdomen: Soft and nontender. No rigidity. No distention. Skin: Skin warm and dry. Normal skin color. Normal skin turgor. Extremities: No lower extremity edema. No Lacerations. No Rash Neuro: Oriented X 3. No motor deficit. No sensory deficit. Moving all extremities. No slurred speech. CN 2 through 12 grossly intact Psych: calm, cooperative, normal affect Course Course Course Narrative: This is an RME: Additional HPI, ROS, PE not included below will be deferred to primary provider. This is a 4-inhw-f[age]-female, with a hx of htn and asthma, presenting to the ER with a complaint of chest pain starting today. Reporting cold symptoms x 5 days with a cough. Pt brought in from PCP due to concern about CP and EKG. I looked at EKG from PCP office, no ST elevation or depression. Appears to be similar to EKG performed in department today. Plan: Labs, EKG, CXR Medications Administered Discontinued Medications Generic Name Dose Route Start Last Admin Trade Name Freq PRN Reason Stop Dose Admin Acetaminophen 975 mg 01/23/24 18:28 01/23/24 18:32 Acetaminophen 325 Mg Tablet PO 01/23/24 18:29 975 mg ONCE ONE Administration Medical Decision Making Medical Decision Making MDM Narrative: -discussed the physical exam with the patient, patient has chest pain only in the front with palpation and with coughing, likely musculoskeletal -my interpretation of EKG: Normal sinus rhythm, heart rate 100, nonspecific ST segment depression in lead 2 and knee 3 less than 1 mm, previously seen EKGs from previous years, nonspecific T-wave inversion in lead 3, QTC 461 -my interpretation of chest x-ray: No infiltrates -my interpretation of labs: Normal hematology and chemistry, troponins x3 negative -discussed with the patient that she likely has viral bronchitis, antibiotics not indicated at this time. Differential Diagnosis Differential Diagnoses: The differential diagnosis associated with the presentation includes (Bronchitis, asthma, ACS) Admission/Observation Consideration of admission/observation: Escalation of care including admission/observation considered (Given patient's symptoms referral from PCP, patient was considered) Lab Data [facility] Lab Attestation statement: I reviewed the patient's lab results. 01/23/24 13:12 01/23/24 13:12 Labs: Lab Results 01/23/24 01/23/24 01/23/24 Range/Units 13:12 18:53 21:14 WBC 8.1 (4.8-10.8) X10*3/uL RBC 4.73 (4.20-5.50) X10*6/uL Hgb 12.9 (12.0-16.0) g/dl Hct 38.4 (37.0-47.0) % MCV 81.2 (80.0-98.0) fL MCH 27.3 (27.0-33.0) pg MCHC 33.6 (31.0-35.0) g/dl RDW 12.6 (11.0-16.0) % Plt Count 435 H (160-400) X10*3/uL MPV 9.5 (9.4-12.3) fL Immature Gran % (Auto) 0.2 (0.0-0.4) % Neut % (Auto) 73.8 H (45-73) % Lymph % (Auto) 19.0 L (20-40) % [place] % (Auto) 4.2 (2-11) % Eos % (Auto) 2.3 (0-4) % Baso % (Auto) 0.5 (0-2) % Lymph # (Auto) 1.6 (1.2-4.9) X10*3/uL [place] # (Auto) 0.3 (0.1-1.2) X10*3/uL Eos # (Auto) 0.2 (0.0-0.4) X10*3/uL Baso # (Auto) 0.0 (0.0-0.2) X10*3/uL Abs Immat Gran (auto) 0.02 (0.00-0.03) X10*3/uL Absolute Neuts (auto) 6.0 (2.0-8.3) x10*3/uL Absolute Nucleated RBC 0.000 (0.0-0.012) X10*3/uL Nucleated RBC % (auto) 0.0 (0.0-0.2) /100WBC Sodium 141 (135-145) mmol/L Potassium 3.7 (3.3-5.1) mmol/L Chloride 107 (96-108) mmol/L Carbon Dioxide 28 (22-29) mmol/L Anion Gap 10 L (12-20) BUN 8 L (9-16) mg/dL Creatinine 0.83 (0.5-1.4) mg/dL Estim Creat Clear Calc 80.0 Estimated GFR > 60 Random Glucose 110 (60-115) mg/dL Calcium 9.5 (8.4-10.2) mg/dL Magnesium 2.2 (1.6-2.6) mg/dL Total Bilirubin 0.9 (0.0-1.0) mg/dL Direct Bilirubin 0.3 (0.0-0.5) mg/dL AST 20 (5-31) U/L ALT 22 (0-31) U/L Alkaline Phosphatase 130 H (39-117) U/L Troponin I High Sens < 2.7 < 2.7 < 2.7 (<3.5-17.0) ng/L Total Protein 8.1 H (6.5-8.0) g/dL Albumin 4.3 (3.5-5.0) g/dL Lipase 35 (8-78) U/L Influenza Type A (PCR) NEGATIVE (Negative) Influenza Type B (PCR) NEGATIVE (Negative) RSV RNA Qual (PCR) NEGATIVE (Negative) SARS-CoV-2 RNA (RT-PCR) NEGATIVE (Negative) Independent Interpretation I performed an independent interpretation of an: EKG and Plain X-Ray Radiology Impression Discussion of test interpretation with radiology: I have reviewed the radiologist's reading. Radiologist Impression: FINDINGS: No significant abnormality is noted involving the heart, lungs, mediastinum, bony thorax or soft tissues. XR/XR chest 2V IMPRESSION: Unremarkable examination. Scores Heart Score History: -0- slightly suspicious ECG: -0- normal Age: -1- >45 - <65 Risk factory: -0- no risk factors known Troponin: -0- < or = normal limit Score: 1 Risk: 1.7% Critical Care Time Critical Care Time Critical Care Time: Yes Total Critical Care Time: 35 Attestation: I have personally provided critical care time. Time includes review of lab data, radiology results, discussion with consultants, and monitoring for potential decompensation. Intervention performed as documented. Discharge Plan Discharge Clinical Impression: Bronchitis, Chest wall pain Patient Disposition: Home, Self-Care Instructions: Acute Bronchitis (ED) Additional Instructions: Please follow-up with your primary care physician tomorrow. If you have any worsening or new symptoms, please return to the emergency room or call 911 Prescriptions: New codeine-guaifenesin 7.5-225 mg/5 mL liquid 5 ml PO Q6H PRN (Reason: cough) Qty: 473 0RF Rx Instructions: Keeping away from the reach of children No Action albuterol sulfate [Ventolin HFA] 90 mcg/actuation HFA aerosol inhaler 1 inh inhalation QID PRN (Reason: shortness of breath or wheezing) Qty: 8.5 1RF amlodipine 10 mg tablet 10 mg PO DAILY Qty: 30 5RF lisinopril 10 mg tablet 10 mg PO DAILY Qty: 30 0RF acetaminophen 500 mg capsule 1,000 mg PO Q6H PRN (Reason: pain) Qty: 30 0RF estradiol 0.01 % (0.1 mg/gram) cream vaginal ketotifen fumarate 0.025 % (0.035 %) drops 1 drp ophthalmic (eye) BID Qty: 5 0RF Rx Instructions: administer at least 8 hours apart Asmanex Twisthaler 220 mcg/ actuation (14) aerosol powdr breath activated 2 inh inhalation QPM Qty: 1 5RF cetirizine 10 mg tablet 10 mg PO DAILY Qty: 30 0RF prednisone 20 mg tablet 20 mg PO DAILY Qty: 5 0RF Rx Instructions: Take in the morning with breakfast budesonide-formoterol [Symbicort] 160-4.5 mcg/actuation HFA aerosol inhaler 1 puff inhalation BID omeprazole 20 mg capsule,delayed release(DR/EC) 20 mg PO BID 7 Days Qty: 14 0RF ibuprofen [Motrin IB] 200 mg tablet 400 mg PO BID 7 Days Qty: 28 0RF Rx Instructions: Take with food
[2024-01-23 13:17] LABS: MANUAL DIFF FLAG NO
[2024-01-23 13:22] LABS: Basophils Percent Auto 0.5 % (0-2); Eosinophils Absolute Auto 0.2 X10*3/uL (0.0-0.4); Eosinophils Percent Auto 2.3 % (0-4); Hematocrit 38.4 % (37.0-47.0); Hemoglobin 12.9 g/dl (12.0-16.0); Imm Gran Abs Auto 0.02 X10*3/uL (0.00-0.03); Imm Gran Pct Auto 0.2 % (0.0-0.4); Lymphocytes Absolute Auto 1.6 X10*3/uL (1.2-4.9); Mean Corpuscular HGB Conc 33.6 g/dl (31.0-35.0); Mean Corpuscular Hemoglobin 27.3 pg (27.0-33.0); Mean Corpuscular Volume 81.2 fL (80.0-98.0); Mean Platelet Volume 9.5 fL (9.4-12.3); Monocytes Absolute Auto 0.3 X10*3/uL (0.1-1.2); Monocytes Percent Auto 4.2 % (2-11); Neutrophils Percent Auto 73.8 % (45-73); Platelet Count 435 X10*3/uL (160-400); Red Blood Count 4.73 X10*6/uL (4.20-5.50); Red Cell Distribution Width 12.6 % (11.0-16.0); White Blood Count 8.1 X10*3/uL (4.8-10.8)
[2024-01-23 13:43] LABS: Alanine Aminotransferase 22 U/L (0-31); Albumin Level 4.3 g/dL (3.5-5.0); Alkaline Phosphatase 130 U/L (39-117); Anion Gap 10 (12-20); Aspartate Amino Transferase 20 U/L (5-31); Bilirubin Direct 0.3 mg/dL (0.0-0.5); Bilirubin Total 0.9 mg/dL (0.0-1.0); Blood Urea Nitrogen 8 mg/dL (9-16); Calcium 9.5 mg/dL (8.4-10.2); Carbon Dioxide 28 mmol/L (22-29); Chloride 107 mmol/L (96-108); Estimated Glomerular Filt Rate > 60; Glucose Random 110 mg/dL (60-115); Lipase 35 U/L (8-78); Magnesium 2.2 mg/dL (1.6-2.6); Potassium 3.7 mmol/L (3.3-5.1); Sodium 141 mmol/L (135-145); Total Protein 8.1 g/dL (6.5-8.0)
[2024-01-23 14:02] LABS: Troponin-I High Sensitivity < 2.7 ng/L (<3.5-17.0)
[2024-01-23 14:20] LABS: Influenza A PCR NEGATIVE (Negative); Influenza B PCR NEGATIVE (Negative); Resp Syncy Virus RNA Qual PCR NEGATIVE (Negative); SARS COV2 PCR INHOUSE NEGATIVE (Negative)
[2024-01-23] MEDS: Acetaminophen 325 MG TABLET 975 MG PO (18:32)
[2024-01-23 19:19] LABS: Troponin-I High Sensitivity < 2.7 ng/L (<3.5-17.0)
[2024-01-23 21:42] LABS: Troponin-I High Sensitivity < 2.7 ng/L (<3.5-17.0)
[2024-01-23 22:27] VITALS: BP 119/74; PULSE 93; RESP 16; TEMP 36.8; O2SAT 96
[2024-01-23 22:50] VITALS: BP 119/74; PULSE 93; RESP 16; TEMP 36.8; O2SAT 96
== END 2024-01-23 22:51 | disposition home or self-care (01) ==
LOC: HO.ED 22:47
PROVIDERS: Physician Assistant Medical; Student in an Organized Health Care Education/Training Program; Emergency Provider Emergency Medicine; PCP Internal Medicine
DX: J40 Bronchitis, not specified as acute or chronic (principal); R07.89 Other chest pain; R05.9 Cough, unspecified; J45.20 Mild intermittent asthma, uncomplicated; Z11.52 Encounter for screening for COVID-19; Z20.828 Contact with and (suspected) exposure to other viral communicable diseases
CPT/HCPCS: 0241U; 36415; 71046; 80048; 80076; 83690; 83735; 84484; 85025; 93005; 99283; 99285

== ENCOUNTER → 2024-01-23 12:12 | Outpatient (BNV) | payer OTHER, SELFPAY | PROVIDERS: PCP Internal Medicine; Visit Provider Internal Medicine Cardiovascular Disease | DX: R07.9 Chest pain, unspecified (principal) | CPT/HCPCS: 93010 ==

== ENCOUNTER 2024-04-18 11:31 | Outpatient (AMB) | payer OTHER, SELFPAY ==
[2024-04-18 11:39] VITALS: BP 110/78; PULSE 84; TEMP 36.2; O2SAT 99; BMI 31.0
--- NOTE | 2024-04-18 11:39 | AM.OFFWIN_ITS ---
Intake Vital Signs 04/18/24 11:39 Height 5 ft 3 in Weight 175 lb BMI 31.0 BP 110/78 Blood Pressure Location Lt brachial Position Sitting Pulse 84 Pulse Source Pulse Oximeter Temp 97.2 F Temp Source Temporal Artery Scan Pulse Oximetry (%) 99 Oxygen Delivery Method Room Air Intake Visit Reasons: EP Back pain Intake Note: t is here today for back pain started 4 days Patient Tobacco Use Status: Former Tobacco user Allergies naproxen [From NAPROSYN] Adverse Reaction (Unknown, Verified 04/18/24 11:49) STOMACH UPSET Do you need a note to return to daycare/school/sports/work: No HPI HPI Comments History of Present Illness Details Patient is a 53-year-old female complaining of low back pain. She states that she pulled a muscle in her back a few months ago when she was lifting some boxes and got better but she did something for 5 days ago and she thinks she pulled it again. It hurts when she moves so she has been trying not to get up out of her chair. In doing this, she has been holding her urine longer than normal. She states she has left-sided lower abdominal pain at baseline ever since she had a Mirena IUD placed but she had that removed 3 months ago. She states she has this baseline pain but the pain in her lower abdomen is worse over the last 4 days. She denies any fevers, burning with urination or blood in her urine. [facility] Medical History Bronchial asthma COVID-19 vaccination declined Hx of dysfunctional uterine bleeding History of use of contraceptive intrauterine device (IUD) Mild intermittent asthma Cochlear implant in place COVID-19 virus infection Nephrolithiasis Vitamin D deficiency Obesity (BMI 30-39.9) Hearing loss associated with syndrome of both ears Surgical History Hx of esophagogastroduodenoscopy History of cochlear implant Family History Father Diabetes mellitus HTN (hypertension) Hyperlipidemia Mother HTN (hypertension) Hyperlipidemia Diabetes mellitus Social History Housing: Apartment Patient Tobacco Use Status: Former Tobacco user e-Cigarette/Vaping Use: Never Used service: No Current occupational status: unemployed Cognitive needs: No Hearing needs: No Vision needs: No Review of Systems Const All systems reviewed & are unremarkable except as noted in HPI and below Physical Exam Vital Signs: Last Vital Signs Temp 97.2 F 04/18/24 11:39 Pulse 84 04/18/24 11:39 BP 110/78 04/18/24 11:39 Pulse Ox 99 04/18/24 11:39 Oxygen Delivery Method Room Air 04/18/24 11:39 BMI result Body Mass Index 31.0 Const General: cooperative, healthy appearing and comfortable Orientation/consciousness: patient oriented x3 HEENT Head: Yes normal to inspection General nose exam: Normal external nose present Face and sinus: Yes normal facial exam Eyes General: appearance normal, both eyes and all related structures Resp Effort & Inspection: normal respiratory effort and able to speak in complete sentences GI Inspection: Yes normal to inspection Palpation (GI): Soft to palpation, not firm and Tenderness to palpation present (GI) in the RLQ and suprapubicly General: Yes no CVA tenderness Back/Spine/Pelvis Back: no CVA tenderness Thoracic/Lumbar Spine: thoracic and lumbar spine normal to inspection, paraspinal muscle tenderness on the left, No thoracic spinal tenderness and No lumbar spinal tenderness Neuro General: patient oriented x3 Results AMB Urinalysis, Automated UA Leukoctes 70 Janie/uL Last Edit by AUGUSTINE Copeland on 04/18/24 12:21 UA Nitrite Negative Last Edit by AUGUSTINE Copeland on 04/18/24 12:21 UA Urobilinogen 0.2 mg/dL Last Edit by AUGUSTINE Copeland on 04/18/24 12:2 1 UA Protein 30 mg/dL Last Edit by AUGUSTINE Copeland on 04/18/24 12:21 UA pH 6.0 Last Edit by AUGUSTINE Copeland on 04/18/24 12:21 UA Blood 0 Shayan/uL Last Edit by AUGUSTINE Copeland on 04/18/24 12:21 UA Specific [place] 1.015 Last Edit by AUGUSTINE Copeland on 04/18/24 12: 21 UA Ketone Last Edit by AUGUSTINE Copeland on 04/18/24 12:21 UA Bilirubin 5 mg/dL Last Edit by AUGUSTINE Copeland on 04/18/24 12:21 UA Glucose 0 mg/dL Last Edit by AUGUSTINE Copeland on 04/18/24 12:21 Results Reviewed Results Reviewed: Laboratory Last Values Urine pH (Auto) 6.0 04/18/24 12:20 Specific [place] (Auto) 1.015 04/18/24 12:20 Urine Protein (Auto) 30 mg/dL 04/18/24 12:20 Glucose (UA)(Auto) 0 mg/dL 04/18/24 12:20 Urine Blood (Auto) 0 Shayan/uL 04/18/24 12:20 Urine Nitrite (Auto) Negative 04/18/24 12:20 Urine Bilirubin (Auto) 5 mg/dL 04/18/24 12:20 Urine Urobilinogen (Auto) 0.2 mg/dL 04/18/24 12:20 Leukocyte Esterase (Auto) 70 Janie/uL 04/18/24 12:20 Assessment & Plan Assessment & Plan (1) Urinary tract infection: Code(s): N39.0 - Urinary tract infection, site not specified Qualifiers: Hematuria presence: without hematuria Urinary tract infection type: acute cystitis Qualified Code(s): N30.00 - Acute cystitis without hematuria Plan: We will send prescription to pharmacy, likely caused herself a UTI by holding her urine much longer than normal. (2) Spasm of back muscles: Code(s): M62.830 - Muscle spasm of back Plan: Will send a short course of muscle relaxers to take before bed. Educated patient on not drinking alcohol or driving a vehicle while taking this medication Orders: Orders AMB Urinalysis Automated Today Z13.9 - Encounter for screening, unspecified Medications: New cyclobenzaprine 5 mg PO TID PRN 7 tabs 0RF muscle spasm cefuroxime axetil 500 mg PO Q12H 10 tabs 0RF Coding Level of Care Code Est Pt Level 3 (03079) Diagnoses Acute cystitis without hematuria N30.00 Hematuria presence: without hematuria Urinary tract infection type: acute cystitis Spasm of back muscles M62.830
== END 2024-04-18 12:51 | disposition home or self-care (01) ==
PROVIDERS: PCP Internal Medicine; Visit Provider Physician Assistant
DX: N30.00 Acute cystitis without hematuria (principal); M62.830 Muscle spasm of back
CPT/HCPCS: 81003; 99213

== ENCOUNTER 2024-06-05 11:45 | Outpatient (AMB) | payer OTHER, SELFPAY ==
[2024-06-05 12:26] VITALS: BP 122/72; PULSE 83; TEMP 36.7; O2SAT 95; BMI 30.8
--- NOTE | 2024-06-05 12:26 | AM.OFFWIN_ITS ---
Intake Vital Signs 06/05/24 12:26 Height 5 ft 3 in Weight 174 lb BMI 30.8 BP 122/72 Blood Pressure Location Rt brachial Position Sitting Pulse 83 Pulse Source Pulse Oximeter Temp 98.1 F Temp Source Oral Pulse Oximetry (%) 95 Oxygen Delivery Method Room Air Intake Visit Reasons: EP ?yeast/vaginal infection Intake Note: Pt is here today for possible yeast infection Patient Tobacco Use Status: Former Tobacco user Allergies naproxen [From NAPROSYN] Adverse Reaction (Unknown, Verified 06/05/24 12:40) STOMACH UPSET Do you need a note to return to daycare/school/sports/work: No HPI EP ?yeast/vaginal infection HPI Details This note is constructed using voice recognition software. While every effort has been made to ensure accuracy, aircraft fueler errors may have been included. The patient is a 53 year old female who presents to the clinic today with concern for yeast infection. She notes several day symptom of vaginal irritation and itch. She notes that she tried some [id number] azo thing in this may help the symptoms, however has not had any burning frequency, or color change in urine. She notes that she is having some pain from the itch. She has some white discharge with some different older than her normal. [facility] Medical History (Updated 05/06/24 @ 16:58 by Savanna Kramer MD) Essential hypertension Bronchial asthma COVID-19 vaccination declined Hx of dysfunctional uterine bleeding History of use of contraceptive intrauterine device (IUD) Mild intermittent asthma Cochlear implant in place COVID-19 virus infection Nephrolithiasis Vitamin D deficiency Obesity (BMI 30-39.9) Hearing loss associated with syndrome of both ears Surgical History Hx of esophagogastroduodenoscopy History of cochlear implant Family History Father Diabetes mellitus HTN (hypertension) Hyperlipidemia Mother HTN (hypertension) Hyperlipidemia Diabetes mellitus Social History Housing: Apartment Patient Tobacco Use Status: Former Tobacco user e-Cigarette/Vaping Use: Never Used service: No Current occupational status: unemployed Cognitive needs: No Hearing needs: No Vision needs: No Review of Systems Const All systems reviewed & are unremarkable except as noted in HPI and below Physical Exam Vital Signs: Last Vital Signs Temp 98.1 F 06/05/24 12:26 Pulse 83 06/05/24 12:26 BP 122/72 06/05/24 12:26 Pulse Ox 95 06/05/24 12:26 Oxygen Delivery Method Room Air 06/05/24 12:26 BMI result Body Mass Index 30.8 Const General: cooperative, healthy appearing, comfortable, no acute distress and alert Orientation/consciousness: patient oriented x3 Limitations: no limitations External Female Exam: erythema (At introitus) and urethral discharge (Thin white with no obvious odor) Skin General skin exam: no rashes or lesions noted, elasticity normal and turgor normal Neuro General: patient oriented x3 Psych Appearance: grossly normal Mental Status: mental status grossly normal Speech and movement: Normal speech and movement present Affect: normal affect Assessment & Plan Assessment & Plan (1) Jazmín infection: Code(s): B37.9 - Candidiasis, unspecified Plan: History and physical examination consistent with likely Jazmín infection. We will prescribe fluconazole for treatment, however advised patient to monitor for resolution of symptoms. If she continues to have symptoms including burning and irritation she may require a vaginal swab to rule out things such as BV or other etiology. Plan See above for full details and plan. Medications: New fluconazole 150 mg PO ONCE 1 tab 0RF Coding Level of Care Code Est Pt Level 3 (08643) Diagnoses Jazmín infection B37.9
== END 2024-06-05 13:12 | disposition home or self-care (01) ==
PROVIDERS: PCP Internal Medicine; Visit Provider Registered Nurse
DX: B37.9 Candidiasis, unspecified (principal)
CPT/HCPCS: 99213

== ENCOUNTER 2024-06-09 10:00 | Outpatient (AMB) | payer OTHER, SELFPAY ==
--- NOTE | 2024-06-09 10:44 | MHC.OFFWIV ---
Intake Vital Signs 06/09/24 10:53 Height 5 ft 3 in Weight 174 lb BMI 30.8 BP 122/80 Blood Pressure Location Lt brachial Position Sitting Pulse 82 Pulse Source Pulse Oximeter Pulse Oximetry (%) 98 Oxygen Delivery Method Room Air Intake Visit Reasons: EP still having vaginal issues/not better Intake Note: Patient here for UTI symptoms that have been present for about 1 week. Patient Tobacco Use Status: Former Tobacco user Allergies naproxen [From NAPROSYN] Adverse Reaction (Unknown, Verified 06/09/24 10:53) STOMACH UPSET Do you need a note to return to daycare/school/sports/work: No HPI HPI Comments History of Present Illness Details Patient is a 53-year-old female who was seen here about a week ago complaining of abnormal vaginal discharge, she was diagnosed with a yeast infection and treated with 1 dose of fluconazole. She states she is still having symptoms but it is more increased frequency of urination, burning when she urinates and increased urgency of urination. She denies any fevers or back pain but she does not endorse some lower abdominal pain. She denies any fishy odor or abnormal vaginal discharge or blood in her urine. [facility] Medical History (Updated 05/06/24 @ 16:58 by Savanna Kramer MD) Essential hypertension Bronchial asthma COVID-19 vaccination declined Hx of dysfunctional uterine bleeding History of use of contraceptive intrauterine device (IUD) Mild intermittent asthma Cochlear implant in place COVID-19 virus infection Nephrolithiasis Vitamin D deficiency Obesity (BMI 30-39.9) Hearing loss associated with syndrome of both ears Surgical History Hx of esophagogastroduodenoscopy History of cochlear implant Family History Father Diabetes mellitus HTN (hypertension) Hyperlipidemia Mother HTN (hypertension) Hyperlipidemia Diabetes mellitus Social History Housing: Apartment Patient Tobacco Use Status: Former Tobacco user e-Cigarette/Vaping Use: Never Used service: No Current occupational status: unemployed Cognitive needs: No Hearing needs: No Vision needs: No Review of Systems Const All systems reviewed & are unremarkable except as noted in HPI and below Physical Exam Vital Signs: Last Vital Signs Pulse 82 08/12/24 10:53 BP 122/80 06/09/24 10:53 Pulse Ox 98 06/09/24 10:53 Oxygen Delivery Method Room Air 06/09/24 10:53 BMI result Body Mass Index 30.8 Const General: cooperative, healthy appearing, comfortable, no acute distress and well developed Orientation/consciousness: patient oriented x3 Limitations: no limitations HEENT Head: Yes normal to inspection Eyes General: appearance normal, both eyes and all related structures Neck Neck: Yes normal visual inspection and Yes full ROM Resp Effort & Inspection: normal respiratory effort and able to speak in complete sentences Skin General skin exam: no rashes or lesions noted Neuro General: patient oriented x3 Extrem General: Yes normal to inspection Results AMB Urinalysis, Automated UA Leukoctes 70 Janie/uL Last Edit by Adrianna Edmondson CCM on 06/09/24 11:07 UA Nitrite Negative Last Edit by Adrianna Edmondson CCM on 06/09/24 11:07 UA Urobilinogen 0.2 mg/dL Last Edit by Adrianna Edmondson CCM on 06/09/24 11:07 UA Protein 15 mg/dL Last Edit by Adrianna Edmondson [facility] on 06/09/24 11:07 UA pH 5.5 Last Edit by Adrianna Edmondson [facility] on 06/09/24 11:07 UA Blood 25 Shayan/uL Last Edit by Adrianna Edmondson [facility] on 06/09/24 11:07 UA Specific Cardale 1.025 Last Edit by Adrianna Edmondson CCM on 06/09/24 11:07 UA Ketone Negative Last Edit by Adrianna Edmondson CCM on 06/09/24 11:07 UA Bilirubin 0 mg/dL Last Edit by Adrianna Edmondson [facility] on 06/09/24 11:07 UA Glucose 0 mg/dL Last Edit by Adrianna Edmondson [facility] on 06/09/24 11:07 Assessment & Plan Assessment & Plan (1) Urinary tract infection: Code(s): N39.0 - Urinary tract infection, site not specified Qualifiers: Hematuria presence: without hematuria Urinary tract infection type: acute cystitis Qualified Code(s): N30.00 - Acute cystitis without hematuria Plan: UA positive for leukocyte esterase and blood and protein. We will treat with antibiotics. Plan See above Orders: Orders AMB Urinalysis Automated Today Z13.9 - Encounter for screening, unspecified Medications: New cefuroxime axetil 500 mg PO Q12H 10 tabs 0RF Coding Level of Care Code Est Pt Level 3 (76405) Diagnoses Acute cystitis without hematuria N30.00 Hematuria presence: without hematuria Urinary tract infection type: acute cystitis
[2024-06-09 10:53] VITALS: BP 122/80; PULSE 82; O2SAT 98; BMI 30.8
== END 2024-06-09 11:29 | disposition home or self-care (01) ==
PROVIDERS: PCP Internal Medicine; Visit Provider Physician Assistant
DX: Z13.9 Encounter for screening, unspecified (principal); N30.00 Acute cystitis without hematuria
CPT/HCPCS: 81003; 99213

== ENCOUNTER 2024-07-08 10:15 | Outpatient (AMB) | payer OTHER, SELFPAY ==
--- NOTE | 2024-07-08 10:21 | A.OFFPC_ITS ---
Vital Signs 07/08/24 10:26 Height 5 ft 3 in Weight 176 lb 6 oz BMI 31.2 BP 118/74 Blood Pressure Location Rt brachial Position Sitting Pulse 78 Pulse Source Pulse Oximeter Pulse Oximetry (%) 98 Oxygen Delivery Method Room Air Intake Visit Reasons: Discuss weight loss medication/Ok per AG Intake Note: Patient here to discuss weight loss options. Allergies naproxen [From NAPROSYN] Adverse Reaction (Unknown, Verified 07/08/24 10:36) STOMACH UPSET Medication List - Last Reconciled 07/08/24 by Savanna Kramer MD albuterol sulfate 90 mcg/actuation (Ventolin HFA) 1 inh inhalation QID PRN amlodipine 10 mg PO DAILY cetirizine 10 mg PO DAILY cyclobenzaprine 5 mg PO TID PRN fluconazole 150 mg PO ONCE 1 dose fluticasone furoate 100 mcg/actuation (Arnuity Ellipta) 1 inh inhalation DAILY ibuprofen (Motrin IB) 400 mg (2 x 200 mg) PO BID 7 days ketotifen fumarate 0.025%(0.035%) 1 drp ophthalmic (eye) BID lisinopril 10 mg PO DAILY omeprazole 20 mg PO BID 7 days Tobacco use date assessed: 01/22/24 Dental Screening Dental Screen Date: 01/22/24 HPI Discuss weight loss medication/Ok per AG HPI Details Recent UA lady with obesity, hypertension, GERD, and seasonal allergies, here today wanting to see if she can be placed on we go be to help with weight loss. Patient has been trying to lose weight through diet and exercise but has not been very successful. [facility] Medical History Essential hypertension COVID-19 vaccination declined Hx of dysfunctional uterine bleeding History of use of contraceptive intrauterine device (IUD) Mild intermittent asthma Cochlear implant in place COVID-19 virus infection Nephrolithiasis Vitamin D deficiency Obesity (BMI 30-39.9) Hearing loss associated with syndrome of both ears Surgical History Hx of esophagogastroduodenoscopy History of cochlear implant Family History Father Diabetes mellitus HTN (hypertension) Hyperlipidemia Mother HTN (hypertension) Hyperlipidemia Diabetes mellitus Social History Housing: Apartment Patient Tobacco Use Status: Former Tobacco user e-Cigarette/Vaping Use: Never Used service: No Current occupational status: unemployed Cognitive needs: No Hearing needs: No Vision needs: No Questionnaire Thrive Questionnaire Date Thrive assessed: 07/01/24 I am a: Patient What is your living situation today?: I choose not to answer this question Within the past 12 months, did the food you bought not last and you didn't have the money to get more?: Sometimes True Within the past 12 months, did you worry whether your food would run out before you got money to buy more?: Sometimes True Do you have trouble paying for medicines?: No Do you have trouble getting transportation to medical appointments?: No Do you have trouble paying your heating and electricity bill?: No Do you have trouble taking care of your child, family member or friend?: No Do you have trouble with day-to-day activities such as bathing, preparing meals, shopping, managing finances, etc.?: No Are you currently unemployed and looking for a job?: Yes Are you interested in more education?: No Please select the resources that you would like help with: Housing/Fdc Currently or been in a relationship where the following occur: No concerns reported THRIVE Score: 2 AUDIT C Alcohol Use Questionnaire (AUDIT-C) 1. How often do you have a drink containing alcohol?: Monthly or less 2. How many drinks containing alcohol do you have on a typical day when you are drinking?: 1 or 2 3. How often do you have six or more drinks on one occasion?: Never Total Score: 1 ANNE MARIE-7 AMB Questionnaire ANNE MARIE-7 Date ANNE MARIE - 7 assessed: 07/19/23 Feeling nervous, anxious, or on edge: 0 = Not at all Not being able to stop or control worryin = Several days Worrying too much about different things: 1 = Several days Trouble relaxin = Several days Being so restless that it is hard to sit still: 1 = Several days Becoming easily annoyed or irritable: 1 = Several days Feeling afraid as if something awful might happen: 1 = Several days Total ANNE MARIE-7 score (0-4 normal; 5-9 mild; 10-14 moderate; 15-21 severe): 6 Source: Developed by Drs. Stephen Munoz, Farrah Acosta, Pollo Mireles and colleagues, with an educational nancy from [employer]. ANNE MARIE-7 Assessment Billing ANNE MARIE-7 Assessment Tool: ANNE MARIE-7 Assessment 70337 Review of Systems Const All systems reviewed & are unremarkable except as noted in HPI and below Physical exam (Primary Care) Vital Signs: Last Vital Signs Pulse 78 07/08/24 10:26 BP 118/74 07/08/24 10:26 Pulse Ox 98 07/08/24 10:26 Oxygen Delivery Method Room Air 07/08/24 10:26 BMI result Body Mass Index 31.2 Tobacco/Smoking Status: Tobacco use Status Tobacco use date assessed 01/22/24 07/08/24 10:25 Patient Tobacco Use Status Former Tobacco user 07/08/24 10:25 e-Cigarette/Vaping Use Never Used 07/08/24 10:25 Thrive Assessment: Date of Thrive Assessment Date Thrive assessed 07/01/24 07/08/24 10:25 Currently or been in a relationship where the following occur: No concerns reported Const General: comfortable and no acute distress Nutritional Appearance: obese Neck Neck: Yes full ROM and Yes no lymphadenopathy Thyroid: Thyroid normal Resp Auscultation: clear to auscultation bilaterally Cardio Other: S1-S2 present regular rate and rhythm GI Inspection: Yes obesity Palpation (GI): Soft to palpation, nontender, no guarding and no masses Auscultation: normal bowel sounds Assessment and Plan Assessment & Plan (1) Obesity (BMI 30-39.9): Code(s): E66.9 - Obesity, unspecified Plan: Will start on Wegovy, instructed patient how to properly administer medication, given once weekly, discussed side effects that may she being encountered when taking the medication which may include abdominal cramping, alteration in bowel habits, and may increase risk for pancreatitis. Continue with diet and exercise, will see her back for follow-up 4 weeks after starting medication (2) Essential hypertension: Code(s): I10 - Essential (primary) hypertension Plan: Blood pressure at goal of less than 130/80. Continue with current medication. Reinforced importance of following a low sodium diet, getting regular exercise, and lowering stress levels. (3) Mild intermittent asthma: Code(s): J45.20 - Mild intermittent asthma, uncomplicated Qualifiers: Asthma complication type: uncomplicated Qualified Code(s): J45.20 - Mild intermittent asthma, uncomplicated Plan: Has albuterol inhaler to use as needed for episodes of bronchospasm and wheezing Medications: New Wegovy (semaglutide (weight loss)) administer weeks 1 through 4 of therapy 0.25 mg (0.5 mL) subcut QWEEK 30 days 2 mL 1RF NS E66.9 - Obesity, unspecified, I10 - Essential (primary) hypertension Coding Level of Care Code Est Pt Level 4 (48118) Complex EM visit Add On G2211 Diagnoses Obesity (BMI 30-39.9) E66.9 Essential hypertension I10 Mild intermittent asthma without complication J45.20 Asthma complication type: uncomplicated Additional Codes ANNE MARIE-7 Assessment Billing - ANNE MARIE-7 Assessment Tool: ANNE MARIE-7 Assessment [id number] ([id number])
[2024-07-08 10:26] VITALS: BP 118/74; PULSE 78; O2SAT 98; BMI 31.2
== END 2024-07-08 12:15 | disposition home or self-care (01) ==
PROVIDERS: PCP Internal Medicine; Visit Provider Internal Medicine
DX: I10 Essential (primary) hypertension (principal); E66.9 Obesity, unspecified; J45.20 Mild intermittent asthma, uncomplicated; Z68.31 Body mass index [BMI] 31.0-31.9, adult
CPT/HCPCS: 99214; G2211

== ENCOUNTER → 2024-07-31 10:37 | Outpatient (BNVA) | payer OTHER, SELFPAY | PROVIDERS: PCP Internal Medicine | DX: Z01.89 Encounter for other specified special examinations (principal) ==

== ENCOUNTER → 2024-09-16 09:51 | Outpatient (BNVA) | payer OTHER, SELFPAY | PROVIDERS: PCP Internal Medicine; Visit Provider Internal Medicine ==

== ENCOUNTER 2024-09-22 08:08 | Outpatient (REF) | payer OTHER, SELFPAY ==
[2024-09-22 11:09] LABS: Anion Gap 12 (12-20); Blood Urea Nitrogen 9 mg/dL (9-16); Calcium 9.7 mg/dL (8.4-10.2); Carbon Dioxide 26 mmol/L (22-29); Chloride 107 mmol/L (96-108); Cholesterol 157 mg/dL (<200); Estimated Glomerular Filt Rate > 60; Glucose Fasting 88 mg/dL (60-99); HDL Cholesterol 44 mg/dL (>40); LDL Cholesterol Calculated 87 mg/dL (<100); Potassium 3.5 mmol/L (3.3-5.1); Sodium 141 mmol/L (135-145); Triglycerides 133 mg/dL (<150)
== END 2024-09-22 08:09 | disposition home or self-care (01) ==
LOC: HO.HMGCLDS 08:08
PROVIDERS: PCP Internal Medicine; Visit Provider Internal Medicine
DX: I10 Essential (primary) hypertension (principal); E55.9 Vitamin D deficiency, unspecified; E66.9 Obesity, unspecified
CPT/HCPCS: 36415; 80048; 80061; 82306

== ENCOUNTER 2024-09-24 11:12 | Outpatient (AMB) | payer OTHER, SELFPAY ==
[2024-09-24 11:15] VITALS: BP 122/76; PULSE 94; O2SAT 99; BMI 30.1
--- NOTE | 2024-09-24 11:15 | A.OFFPC_ITS ---
Vital Signs 09/24/24 11:15 Height 5 ft 3 in Weight 170 lb BMI 30.1 BP 122/76 Blood Pressure Location Rt brachial Position Sitting Pulse 94 Pulse Source Pulse Oximeter Pulse Oximetry (%) 99 Oxygen Delivery Method Room Air Intake Visit Reasons: follow-up with weight management medication Intake Note: Pt is here today for her f/u weigh mgmt and medication Allergies naproxen [From NAPROSYN] Adverse Reaction (Unknown, Verified 09/24/24 11:26) STOMACH UPSET Medication List - Last Reconciled 09/24/24 by Savanna Kramer MD albuterol sulfate 90 mcg/actuation (Ventolin HFA) 1 inh inhalation QID PRN amlodipine 10 mg PO DAILY cetirizine 10 mg PO DAILY fluticasone furoate 100 mcg/actuation (Arnuity Ellipta) 1 inh inhalation DAILY ibuprofen (Motrin IB) 400 mg (2 x 200 mg) PO BID 7 days ketotifen fumarate 0.025%(0.035%) 1 drp ophthalmic (eye) BID lisinopril 10 mg PO DAILY omeprazole 20 mg PO BID 7 days semaglutide (weight loss) 0.5 mg (0.5 mL) subcut QWEEK 30 days Tobacco use date assessed: 09/24/24 Dental Screening Dental Screen Date: 09/24/24 Did you have a dental visit in the last 12 months?: Yes Did you have a dental problem in the last 6 months where you did not have access to dental care?: Yes Was dental information given to patient?: Patient has dentist HPI follow-up with weight management medication HPI Details 54-year-old lady with hypertension, obes ity, here today for follow-up regarding weight, she was started on semaglutide in June 2024. Has been tolerating medication well, with minimal side effects of abdominal cramping during the 1st day of injection, dose recently increased to 0.5 mg once a week. 6 lb weight loss noted since beginning medication 2 months ago. Patient however has not been fully adherent to healthy eating habits nor does she get any regular exercise as has been advised to on last visit. She had recent fasting labs done which showed normal lipids, fasting glucose, electrolytes and liver function, vitamin D was noted to be deficient at 21 ng/mL. Blood pressure has been stable and controlled on present dose of lisinopril at 10 mg daily and amlodipine 10 mg daily. Complaining of frequent heartburn episodes despite taking omeprazole 20 mg 1 capsule twice a day. Denies any blood in stool, no nausea or vomiting reported [facility] Medical History (Updated 09/24/24 @ 11:48 by Savanna Kramer MD) Chronic heartburn Essential hypertension COVID-19 vaccination declined Hx of dysfunctional uterine bleeding History of use of contraceptive intrauterine device (IUD) Mild intermittent asthma Cochlear implant in place COVID-19 virus infection Nephrolithiasis Vitamin D deficiency Obesity (BMI 30-39.9) Hearing loss associated with syndrome of both ears Surgical History Hx of esophagogastroduodenoscopy History of cochlear implant Family History Father Diabetes mellitus HTN (hypertension) Hyperlipidemia Mother HTN (hypertension) Hyperlipidemia Diabetes mellitus Social History Housing: Apartment Patient Tobacco Use Status: Former Tobacco user e-Cigarette/Vaping Use: Never Used service: No Current occupational status: unemployed Cognitive needs: No Hearing needs: No Vision needs: No Questionnaire Thrive Questionnaire Date Thrive assessed: 07/01/24 I am a: Patient What is your living situation today?: I choose not to answer this question Within the past 12 months, did the food you bought not last and you didn't have the money to get more?: Sometimes True Within the past 12 months, did you worry whether your food would run out before you got money to buy more?: Sometimes True Do you have trouble paying for medicines?: No Do you have trouble getting transportation to medical appointments?: No Do you have trouble paying your heating and electricity bill?: No Do you have trouble taking care of your child, family member or friend?: No Do you have trouble with day-to-day activities such as bathing, preparing meals, shopping, managing finances, etc.?: No Are you currently unemployed and looking for a job?: Yes Are you interested in more education?: No Please select the resources that you would like help with: Housing/Intermediate Currently or been in a relationship where the following occur: No concerns reported THRIVE Score: 2 ANNE MARIE-7 AMB Questionnaire ANNE MARIE-7 Date ANNE MARIE - 7 assessed: 07/19/23 Source: Developed by Drs. Stephen Munoz, Farrah Acosta, Pollo Mireles and colleagues, with an educational nancy from [employer]. Physical exam (Primary Care) Vital Signs: Last Vital Signs Pulse 94 09/24/24 11:15 BP 122/76 09/24/24 11:15 Pulse Ox 99 09/24/24 11:15 Oxygen Delivery Method Room Air 09/24/24 11:15 BMI result Body Mass Index 30.1 Tobacco/Smoking Status: Tobacco use Status Tobacco use date assessed 09/24/24 09/24/24 11:18 Patient Tobacco Use Status Former Tobacco user 09/24/24 11:18 e-Cigarette/Vaping Use Never Used 09/24/24 11:18 Thrive Assessment: Date of Thrive Assessment Date Thrive assessed 07/01/24 09/24/24 11:18 Currently or been in a relationship where the following occur: No concerns reported Results Reviewed Results Reviewed: Name: Lita Dominguez Age/Sex: 54/F : 1970 Unit#: [id number] Attend Dr: Savanna Kramer MD Re09/22/24 Status: DEP REF Location: [facility] Disch: SPEC : [id number] ANUJA: 09/22/24 STATUS: COMP REQ : [id number] RECD: 09/22/[address]: Savanna Kramer MD COMP: 09/22/249 ENTERED: 09/22/[address]: ORDERED: Met Prof Fast, Lipid Panel, Vitamin D 25-OH Test Result Flag Reference Sodium 141 135-145 mmol/L Potassium 3.5 3.3-5.1 mmol/L CL 107 96-108 mmol/L CO2 26 22-29 mmol/L Gap 12 12-20 BUN 9 9-16 mg/dL Creat 0.72 0.5-1.4 mg/dL eGFR > 60 Chronic Kidney Disease: Estimated GFR < 60 mL/min/1.73m2 Severe Kidney Disease: Estimated GFR < 15 mL/min/1.73m2 FBS 88 60-99 mg/dL CA 9.7 8.4-10.2 mg/dL Triglyceride 133 <150 mg/dL Desirable Triglyceride: less than 150 mg/dL Borderline High Triglyceride 150-199 mg/dL High Triglyceride: 200-499 mg/dL Very High Triglyceride: greater than or equal to 5OO mg/dL Cholesterol 157 <200 mg/dL Desirable Cholesterol: less than 200 mg/dL Borderline High Cholesterol: 200-239 mg/dL High Cholesterol: greater than 239 mg/dL LDL Calculated 87 <100 mg/dL Desirable LDL: less than 100 mg/dL Near Optimal/Above Optimal LDL: 110-129 mg/dL Borderline High LDL: 130-159 mg/dL High LDL: 160-189 mg/dL Very High LDL: greater than or equal to 190 mg/dL HDL 44 >40 mg/dL Desirable HDL: greater than 40 mg/dL Note: This HDL assay may give artificially low results in patients with liver disease. Vit D 25-OH Tot 21.0 L >30 ng/mL Health Based Reference Values* < 20 ng/mL Deficient 20-30 ng/mL Insufficient > 30 ng/mL Sufficient Coding Level of Care Code Est Pt Level 4 (53266) Diagnoses Obesity (BMI 30-39.9) E66.9 Vitamin D deficiency E55.9 Chronic heartburn R12 Essential hypertension I10 Assessment & Plan Assessment & Plan (1) Obesity (BMI 30-39.9): Code(s): E66.9 - Obesity, unspecified Category: Medical Plan: Increase dose of semaglutide 1 mg injected subcutaneously once a week. Reinforced importance of doing regular exercise at least 15 minutes of cardio daily or 150 minutes per week, and adherence to healthy eating habits as advised (2) Vitamin D deficiency: Code(s): E55.9 - Vitamin D deficiency, unspecified Category: Medical Plan: Prescription sent for vitamin-D 350 1000 units per capsule to take once a week for the next 3 months recheck vitamin-D level again in 3 months (3) Chronic heartburn: Code(s): R12 - Heartburn Category: Medical Plan: Continued on omeprazole, refill sent for 20 mg once a day as insurance does not cover twice a day dosing. Referred to GI Clinic for further evaluation and management. Advised avoidance of food triggers that may cause heartburn and advised to avoid lying down immediately after eating (4) Essential hypertension: Code(s): I10 - Essential (primary) hypertension Category: Medical Plan: Blood pressure at goal of less than 130/80. Continue with lisinopril and amlodipine at the same dose. Reinforced importance of following a low sodium diet, getting regular exercise, and lowering stress levels. Orders: Orders Vitamin D 25-OH Total 11/29/24 E55.9 - Vitamin D deficiency, unspecified, E66.9 - Obesity, unspecified, I10 - Essential (primary) hypertension Aspartate Amino Transferase 11/29/24 E55.9 - Vitamin D deficiency, unspecified, E66.9 - Obesity, unspecified, I10 - Essential (primary) hypertension Basic Metabolic Panel Fasting 11/29/24 E55.9 - Vitamin D deficiency, unspecified, E66.9 - Obesity, unspecified, I10 - Essential (primary) hypertension Glucose Fasting 11/29/24 E55.9 - Vitamin D deficiency, unspecified, E66.9 - Obesity, unspecified, I10 - Essential (primary) hypertension Alanine Aminotransferase 11/29/24 E55.9 - Vitamin D deficiency, unspecified, E66.9 - Obesity, unspecified, I10 - Essential (primary) hypertension Referrals Gastroenterology Referral R12 - Heartburn Medications: New cholecalciferol (vitamin D3) 1,250 mcg PO QWEEK 3 months 13 tabs 0RF E55.9 - Vitamin D deficiency, unspecified Changed From semaglutide (weight loss) administer weeks 1 through 4 of therapy 0.5 mg (0.5 mL) subcut QWEEK 30 days 2.5 mL 1RF E66.9 - Obesity, unspecified To semaglutide (weight loss) 1 mg (0.5 mL) subcut QWEEK 30 days 2 mL 2RF E66.9 - Obesity, unspecified From omeprazole 20 mg PO BID 7 days 14 caps 0RF To omeprazole 20 mg PO DAILY 30 days 30 caps 1RF
== END 2024-09-24 11:53 | disposition home or self-care (01) ==
PROVIDERS: PCP Internal Medicine; Visit Provider Internal Medicine
DX: I10 Essential (primary) hypertension (principal); E66.9 Obesity, unspecified; Z68.30 Body mass index [BMI] 30.0-30.9, adult; R12 Heartburn; E55.9 Vitamin D deficiency, unspecified

== ENCOUNTER → 2024-09-24 11:12 | Outpatient (BNVA) | payer OTHER, SELFPAY | PROVIDERS: PCP Internal Medicine; Visit Provider Internal Medicine | DX: E66.9 Obesity, unspecified (principal); Z68.30 Body mass index [BMI] 30.0-30.9, adult; E55.9 Vitamin D deficiency, unspecified; R12 Heartburn; I10 Essential (primary) hypertension; Z71.3 Dietary counseling and surveillance | CPT/HCPCS: 99212 ==

== ENCOUNTER 2024-10-13 11:22 | Outpatient (AMB) | payer OTHER, SELFPAY ==
[2024-10-13 11:25] VITALS: BP 114/70; PULSE 112; TEMP 36.4; O2SAT 100; BMI 30.1
--- NOTE | 2024-10-13 11:25 | MHC.OFFWIV ---
Intake Vital Signs 10/13/24 11:25 Height 5 ft 3 in Weight 170 lb BMI 30.1 BP 114/70 Blood Pressure Location Lt brachial Position Sitting Pulse 112 H Pulse Source Pulse Oximeter Temp 97.6 F Temp Source Temporal Artery Scan Pulse Oximetry (%) 100 Oxygen Delivery Method Room Air Intake Visit Reasons: EP ?UTI Intake Note: Pt presents to the office today for c/o urinary frequency, and some pain x Patient Tobacco Use Status: Former Tobacco user Allergies naproxen [From NAPROSYN] Adverse Reaction (Unknown, Verified 10/13/24 11:26) STOMACH UPSET HPI EP ?UTI HPI Details This note is constructed using voice recognition software. While every effort has been made to ensure accuracy, filter filler errors may have been included. The patient is a 54 year old female who presents to the clinic today with urinary frequency, urgency for the past 2 weeks. She reports she tried a so which seemed to help the symptoms, but when she stopped azo the symptoms came back. She denies any back pain. [facility] Medical History (Updated 09/24/24 @ 11:48 by Savanna Kramer MD) Chronic heartburn Essential hypertension COVID-19 vaccination declined Hx of dysfunctional uterine bleeding History of use of contraceptive intrauterine device (IUD) Mild intermittent asthma Cochlear implant in place COVID-19 virus infection Nephrolithiasis Vitamin D deficiency Obesity (BMI 30-39.9) Hearing loss associated with syndrome of both ears Surgical History Hx of esophagogastroduodenoscopy History of cochlear implant Family History Father Diabetes mellitus HTN (hypertension) Hyperlipidemia Mother HTN (hypertension) Hyperlipidemia Diabetes mellitus Social History Housing: Apartment Patient Tobacco Use Status: Former Tobacco user e-Cigarette/Vaping Use: Never Used service: No Current occupational status: unemployed Cognitive needs: No Hearing needs: No Vision needs: No Review of Systems Const All systems reviewed & are unremarkable except as noted in HPI and below Physical Exam Vital Signs: Last Vital Signs Temp 97.6 F 10/13/24 11:25 Pulse 112 H 10/13/24 11:25 BP 114/70 10/13/24 11:25 Pulse Ox 100 10/13/24 11:25 Oxygen Delivery Method Room Air 10/13/24 11:25 BMI result Body Mass Index 30.1 Const General: cooperative, healthy appearing, comfortable, no acute distress and alert Orientation/consciousness: patient oriented x3 Limitations: no limitations Resp Effort & Inspection: normal respiratory effort and able to speak in complete sentences Other: Deferred General: Yes no CVA tenderness Back/Spine/Pelvis Back: no CVA tenderness Skin General skin exam: no rashes or lesions noted, elasticity normal and turgor normal Neuro General: patient oriented x3 Psych Appearance: grossly normal Mental Status: mental status grossly normal Speech and movement: Normal speech and movement present Affect: normal affect Results AMB Urinalysis, Automated UA Leukoctes 70 Janie/uL Last Edit by Rosa Baron CMA on 10/13/24 11:32 UA Nitrite Negative Last Edit by Rosa Baron CMA on 10/13/24 11:32 UA Urobilinogen 0.2 mg/dL Last Edit by Rosa Baron CMA on 10/13/24 11:32 UA Protein 300 mg/dL Last Edit by Rosa Baron CMA on 10/13/24 11:32 UA pH 6.0 Last Edit by Rosa Baron CMA on 10/13/24 11:32 UA Blood 25 Shayan/uL Last Edit by Rosa Baron CMA on 10/13/24 11:32 UA Specific [employer] 1.025 Last Edit by Rosa Baron CMA on 10/13/24 11:32 UA Ketone Positive Last Edit by Rosa Baron CMA on 10/13/24 11:32 UA Bilirubin 0 mg/dL Last Edit by Rosa Baron CMA on 10/13/24 11:32 UA Glucose 0 mg/dL Last Edit by Rosa Baron CMA on 10/13/24 11:32 Assessment & Plan Assessment & Plan (1) UTI (urinary tract infection): Code(s): N39.0 - Urinary tract infection, site not specified Qualifiers: Urinary tract infection type: acute cystitis Hematuria presence: without hematuria Qualified Code(s): N30.00 - Acute cystitis without hematuria Plan: Supportive measures encouraged and reviewed. Urine sent for culture and sensitivity. Antibiotic sent to requested pharmacy, advised patient to take antibiotics until completed and not to stop if feeling better, unless the patient has side effects, or she is contacted to change antibiotics after results of culture received. Advised patient to follow up with primary care provider with worsening or failure to resolve. Plan See above for full details and plan. Orders: Orders AMB Urinalysis Automated Today Z13.9 - Encounter for screening, unspecified Urine Culture Today R30.0 - Dysuria Medications: New nitrofurantoin monohyd/m-cryst 100 mg must administer with a meal/food 100 mg PO Q12H 5 days 10 caps 0RF Coding Level of Care Code Est Pt Level 3 (18946) Diagnoses Acute cystitis without hematuria N30.00 Urinary tract infection type: acute cystitis Hematuria presence: without hematuria
== END 2024-10-13 12:23 | disposition home or self-care (01) ==
PROVIDERS: PCP Internal Medicine; Visit Provider Registered Nurse
DX: N30.00 Acute cystitis without hematuria (principal); Z13.9 Encounter for screening, unspecified

== ENCOUNTER 2024-10-13 11:22 | Outpatient (REF) | payer OTHER, SELFPAY | END 2024-10-13 11:23 | disposition home or self-care (01) | LOC: HO.LAB 11:22 | PROVIDERS: PCP Internal Medicine; Visit Provider Registered Nurse | DX: R30.0 Dysuria (principal); N30.00 Acute cystitis without hematuria | CPT/HCPCS: 81003; 87086; 99212 ==

== ENCOUNTER 2024-11-03 09:49 | Outpatient (AMB) | payer OTHER, SELFPAY ==
--- NOTE | 2024-11-03 10:30 | MHC.OFFWIV ---
Intake Vital Signs 11/03/24 10:32 Height 5 ft 3 in Weight 170 lb BMI 30.1 BP 124/80 Blood Pressure Location Rt brachial Position Sitting Pulse 106 H Pulse Source Pulse Oximeter Temp 99 F Temp Source Oral Pulse Oximetry (%) 98 Oxygen Delivery Method Room Air Intake Visit Reasons: EP-sob, fiebre, headaches, body ache, coughing Intake Note: Patient here for SOB, headaches, body aches, cough,fevers, congestion and bilat ear pain that has been present for about 1 week. Patient Tobacco Use Status: Former Tobacco user Allergies naproxen [From NAPROSYN] Adverse Reaction (Unknown, Verified 11/03/24 10:36) STOMACH UPSET Do you need a note to return to daycare/school/sports/work: No HPI HPI Comments History of Present Illness Details History - The patient is a 54-year-old female presenting with acute respiratory symptoms and ear pain. - Increased asthma symptoms, requiring more frequent inhaler use. - Fever reported between 102?F and 105?F, reduced by Tylenol. - Respiratory symptoms include cough, shortness of breath, and general weakness. - Ear pain with possible effusion, without visible infection signs. - Prior frequent ear infections mentioned. - Symptoms managed with asthma medication, although inadequate, and homemade remedies. Video full time staff interpreter used for this exam. Physical Exam General: Cooperative, healthy appearing, comfortable and no acute distress Orientation/consciousness: Patient oriented x3 Limitations: No limitations Head: Normal to inspection Ears: Hearing grossly normal bilaterally, external ears normal and TM's normal bilaterally, right TM has fluid. Nose: Normal external nose present, Normal nares present and No nasal discharge present Face and sinus: Normal facial exam and Yes sinuses nontender Mouth: Normal oral and palatal mucosa present and moist mucous membranes Throat: Yes tonsils normal, Yes uvula midline. Posterior oropharynx erythema Eyes: Appearance normal, both eyes and all related structures Neck: Normal visual inspection Respiratory: Clear to auscultation bilaterally. Normal respiratory effort, able to speak in complete sentences, Actively coughing, no respiratory distress, not tachypneic, no tripod positioning and no use of accessory muscles, but patient reports shortness of breath Cardiovascular: Regular rate and rhythm. Normal S1 and S2 Skin: No rashes or lesions noted Neuro: Patient oriented x3 Extremities: Normal to inspection and Yes no clubbing, cyanosis or edema [facility] Medical History (Updated 11/03/24 @ 10:49 by Maame Conway PA-C) Chronic heartburn Essential hypertension COVID-19 vaccination declined Hx of dysfunctional uterine bleeding History of use of contraceptive intrauterine device (IUD) Mild intermittent asthma Cochlear implant in place COVID-19 virus infection Nephrolithiasis Vitamin D deficiency Obesity (BMI 30-39.9) Hearing loss associated with syndrome of both ears Surgical History Hx of esophagogastroduodenoscopy History of cochlear implant Family History Father Diabetes mellitus HTN (hypertension) Hyperlipidemia Mother HTN (hypertension) Hyperlipidemia Diabetes mellitus Social History Housing: Apartment Patient Tobacco Use Status: Former Tobacco user e-Cigarette/Vaping Use: Never Used service: No Current occupational status: unemployed Cognitive needs: No Hearing needs: No Vision needs: No Review of Systems Const All systems reviewed & are unremarkable except as noted in HPI and below Physical Exam Vital Signs: Last Vital Signs Temp 99 F 11/03/24 10:32 Pulse 106 H 11/03/24 10:32 BP 124/80 11/03/24 10:32 Pulse Ox 98 11/03/24 10:32 Oxygen Delivery Method Room Air 11/03/24 10:32 BMI result Body Mass Index 30.1 Assessment & Plan Assessment & Plan (1) Lower respiratory infection (e.g., bronchitis, pneumonia, pneumonitis, pulmonitis): Code(s): J22 - Unspecified acute lower respiratory infection Plan: Pt slightly tachycardic likely secondary to fever. The patient presented with an exacerbation of asthma and probable viral upper respiratory infection. The treatment plan included a steroid taper regimen to reduce inflammation and alleviate respiratory symptoms. Ear pain was due to observed fluid presence rather than infection, and a viral etiology was suspected. Symptomatic relief was advised using [id number] medications, and antiviral testing was conducted for potential Influenza, COVID-19, and RSV infection which will be communicated through the patient portal. An inhaler refill was provided ensuring continuity in asthma management, and the potential contribution of allergies to the patient's current status was considered. The patient was instructed to seek emergency care if symptoms deteriorate. Patient was informed and verbally consented to the use of an ambient scribe for clinic note documentation during this visit Orders: Orders SARS-CoV2/FLU/RSV Today J22 - Unspecified acute lower respiratory infection Medications: New methylprednisolone PO PER PKG DIR for 6 days 21 ea 0RF Refilled albuterol sulfate 90 mcg/actuation (Ventolin HFA) 1 inh inhalation QID PRN 8.5 grams 1RF shortness of breath or wheezing J45.20 - Mild intermittent asthma, uncomplicated Coding Level of Care Code Est Pt Level 3 (42363) Diagnoses Lower respiratory infection (e.g., bronchitis, pneumonia, pneumonitis, pulmonitis) J22
[2024-11-03 10:32] VITALS: BP 124/80; PULSE 106; TEMP 37.2; O2SAT 98; BMI 30.1
== END 2024-11-03 10:52 | disposition home or self-care (01) ==
PROVIDERS: PCP Internal Medicine; Visit Provider Physician Assistant
DX: J22 Unspecified acute lower respiratory infection (principal)

== ENCOUNTER 2024-11-03 09:49 | Outpatient (REF) | payer OTHER, SELFPAY ==
[2024-11-03 14:16] LABS: Influenza A PCR NEGATIVE (Negative); Influenza B PCR NEGATIVE (Negative); Resp Syncy Virus RNA Qual PCR NEGATIVE (Negative); SARS COV2 PCR INHOUSE POSITIVE (Negative)
== END 2024-11-03 09:50 | disposition home or self-care (01) ==
LOC: HO.LAB 09:49
PROVIDERS: PCP Internal Medicine; Visit Provider Physician Assistant
DX: J22 Unspecified acute lower respiratory infection (principal)
CPT/HCPCS: 0241U; 99212

== ENCOUNTER 2024-12-22 11:35 | Outpatient (AMB) | payer OTHER, SELFPAY ==
[2024-12-22 12:14] VITALS: BP 120/80; PULSE 71; RESP 16; TEMP 36.7; O2SAT 99; BMI 29.2
--- NOTE | 2024-12-22 12:14 | A.OFFPC_ITS ---
Vital Signs 12/22/24 12:14 Height 5 ft 3 in Weight 165 lb BMI 29.2 BP 120/80 Blood Pressure Location Rt brachial Position Sitting Respiration 16 Pulse 71 Pulse Source Pulse Oximeter Temp 98.1 F Temp Source Oral Pulse Oximetry (%) 99 Oxygen Delivery Method Room Air Intake Visit Reasons: follow-up with weight management medication Allergies naproxen [From NAPROSYN] Adverse Reaction (Unknown, Verified 12/22/24 12:52) STOMACH UPSET Medication List - Last Reconciled 12/22/24 by Savanna Kramer MD albuterol sulfate 90 mcg/actuation (Ventolin HFA) 1 inh inhalation QID PRN amlodipine 10 mg PO DAILY cetirizine 10 mg PO DAILY cholecalciferol (vitamin D3) 1,250 mcg PO QWEEK 3 months escitalopram oxalate 5 mg PO DAILY fluticasone furoate 100 mcg/actuation (Arnuity Ellipta) 1 inh inhalation DAILY ketotifen fumarate 0.025%(0.035%) 1 drp ophthalmic (eye) BID lisinopril 10 mg PO DAILY omeprazole 20 mg PO DAILY 30 days Tobacco use date assessed: 12/22/24 Dental Screening Dental Screen Date: 12/22/24 Did you have a dental visit in the last 12 months?: Yes Did you have a dental problem in the last 6 months where you did not have access to dental care?: Yes Was dental information given to patient?: Patient has dentist HPI follow-up with weight management medication HPI Details 54-year-old lady with mild intermittent asthma and hypertension, here t neftali for follow-up regarding her weight. She was initially on semaglutide dose of 1 mg once a week, but patient stopped taking the medicine as it was making her have severe GI upset and cramping. She has been compliant with adhering to a healthy diet and has started exercising. Was able to lose weight at least 5 lb in the last month.. Patient states that she does not want to start any weight loss medication at present time and wants to do it through lifestyle changes. [facility] Medical History (Updated 12/22/24 @ 13:03 by Savanna Kramer MD) Chronic heartburn Essential hypertension COVID-19 vaccination declined Hx of dysfunctional uterine bleeding History of use of contraceptive intrauterine device (IUD) Mild intermittent asthma Cochlear implant in place COVID-19 virus infection Nephrolithiasis Vitamin D deficiency Obesity (BMI 30-39.9) Hearing loss associated with syndrome of both ears Surgical History Hx of esophagogastroduodenoscopy History of cochlear implant Family History Father Diabetes mellitus HTN (hypertension) Hyperlipidemia Mother HTN (hypertension) Hyperlipidemia Diabetes mellitus Social History Housing: Apartment Patient Tobacco Use Status: Former Tobacco user e-Cigarette/Vaping Use: Never Used service: No Current occupational status: unemployed Cognitive needs: No Hearing needs: No Vision needs: No Questionnaire PHQ-9 Over the last 2 weeks, how often have you been bothered by any of the following problems? 1. Little interest or pleasure in doing things: not at all 2. Feeling down, depressed, or hopeless: not at all 3. Trouble falling or staying asleep, or sleeping too much: not at all 4. Feeling tired or having little energy: not at all 5. Poor appetite or overeating: not at all 6. Feeling bad about yourself - or that you are a failure or have let yourself or your family down: not at all 7. Trouble concentrating on things, such as reading the newspaper or watching television: not at all 8. Moving or speaking so slowly that other people could have noticed. Or the opposite - being so fidgety or restless that you have been moving around a lot more than usual: not at all 9. Thoughts that you would be better off or of hurting yourself in some way: not at all Total score: 0 Depression Screening Interpretation: Negative Depression Screening Done: Yes 02449 - PHQ-9 Billing: Yes Source: Developed by Drs. Stephen Munoz, Farrah Acosta, Pollo Mireles and colleagues, with an educational nancy from [email or web address]. Thrive Questionnaire Date Thrive assessed: 12/19/24 I am a: Patient What is your living situation today?: I have a steady place to live Within the past 12 months, did the food you bought not last and you didn't have the money to get more?: Often true Within the past 12 months, did you worry whether your food would run out before you got money to buy more?: Sometimes True Do you have trouble paying for medicines?: No Do you have trouble getting transportation to medical appointments?: No Do you have trouble paying your heating and electricity bill?: No Do you have trouble taking care of your child, family member or friend?: No Do you have trouble with day-to-day activities such as bathing, preparing meals, shopping, managing finances, etc.?: Yes Are you currently unemployed and looking for a job?: Yes Are you interested in more education?: No Please select the resources that you would like help with: None Currently or been in a relationship where the following occur: No concerns reported THRIVE Score: 2 AUDIT C Alcohol Use Questionnaire (AUDIT-C) 1. How often do you have a drink containing alcohol?: Never 2. How many drinks containing alcohol do you have on a typical day when you are drinking?: 1 or 2 3. How often do you have six or more drinks on one occasion?: Never Total Score: 0 ANNE MARIE-7 AMB Questionnaire ANNE MARIE-7 Date ANNE MARIE - 7 assessed: 12/22/24 Feeling nervous, anxious, or on edge: 1 = Several days Not being able to stop or control worryin = Not at all Worrying too much about different things: 1 = Several days Trouble relaxin = Not at all Being so restless that it is hard to sit still: 0 = Not at all Becoming easily annoyed or irritable: 0 = Not at all Feeling afraid as if something awful might happen: 0 = Not at all Total ANNE MARIE-7 score (0-4 normal; 5-9 mild; 10-14 moderate; 15-21 severe): 2 Source: Developed by Drs. Stephen Munoz, Farrah Acosta, Pollo Mireles and colleagues, with an educational nancy from [email or web address]. ANNE MARIE-7 Assessment Billing ANNE MARIE-7 Assessment Tool: ANNE MARIE-7 Assessment 37209 Review of Systems Const All systems reviewed & are unremarkable except as noted in HPI and below Physical exam (Primary Care) Vital Signs: Last Vital Signs Temp 98.1 F 12/22/24 12:14 Pulse 71 12/22/24 12:14 Resp 16 12/22/24 12:14 BP 120/80 12/22/24 12:14 Pulse Ox 99 12/22/24 12:14 Oxygen Delivery Method Room Air 12/22/24 12:14 BMI result Body Mass Index 29.2 Tobacco/Smoking Status: Tobacco use Status Tobacco use date assessed 12/22/24 12/22/24 12:26 Patient Tobacco Use Status Former Tobacco user 12/22/24 12:16 e-Cigarette/Vaping Use Never Used 12/22/24 12:16 PHQ-9: PHQ-9 Score PHQ-9: Total score 0 12/28/24 17:39 Depression Screening Interpretation: Negative Thrive Assessment: Date of Thrive Assessment Date Thrive assessed 12/19/24 12/22/24 12:16 Currently or been in a relationship where the following occur: No concerns reported Const General: comfortable and no acute distress Nutritional Appearance: obese Orientation/consciousness: patient oriented x3 Neck Neck: Yes full ROM and Yes no lymphadenopathy Thyroid: Thyroid normal Resp Auscultation: clear to auscultation bilaterally Cardio Other: S1-S2 present regular rate and rhythm GI Inspection: Yes obesity Palpation (GI): Soft to palpation, nontender, no guarding and no masses Auscultation: normal bowel sounds Neuro General: patient oriented x3, moves all extremities and no focal motor deficits Coding Level of Care Code Est Pt Level 4 (46388) Diagnoses Obesity (BMI 30-39.9) E66.9 Mild intermittent asthma without complication J45.20 Asthma complication type: uncomplicated Essential hypertension I10 Additional Codes ANNE MARIE-7 Assessment Billing - ANNE MARIE-7 Assessment Tool: ANNE MARIE-7 Assessment 24320 ([id number]) PHQ-9 - 76145 - PHQ-9 Billing: Yes ([id number]) Assessment & Plan Assessment & Plan (1) Obesity (BMI 30-39.9): Code(s): E66.9 - Obesity, unspecified Category: Medical Plan: Continue with adherence to healthy eating habits and regular exercise. Declines starting any weight loss medication at present time (2) Mild intermittent asthma: Code(s): J45.20 - Mild intermittent asthma, uncomplicated Category: Medical Qualifiers: Asthma complication type: uncomplicated Qualified Code(s): J45.20 - Mild intermittent asthma, uncomplicated Plan: Continue with Arnuity Ellipta and has Ventolin inhaler to use as needed for episodes of bronchospasm and wheezing. (3) Essential hypertension: Code(s): I10 - Essential (primary) hypertension Category: Medical Plan: Blood pressure at goal of less than 130/80. Continue lisinopril 10 mg daily. Reinforced importance of following a low sodium diet, getting regular exercise, and lowering stress levels. Orders: Orders Basic Metabolic Panel Fasting 05/16/25 E55.9 - Vitamin D deficiency, unspecified, E66.9 - Obesity, unspecified, I10 - Essential (primary) hypertension, J45.20 - Mild intermittent asthma, uncomplicated, Z13.1 - Encounter for screening for diabetes mellitus, Z13.220 - Encounter for screening for lipoid disorders Vitamin D 25-OH Total 05/16/25 E55.9 - Vitamin D deficiency, unspecified, E66.9 - Obesity, unspecified, I10 - Essential (primary) hypertension, J45.20 - Mild intermittent asthma, uncomplicated, Z13.1 - Encounter for screening for diabetes mellitus, Z13.220 - Encounter for screening for lipoid disorders Alanine Aminotransferase 05/16/25 E55.9 - Vitamin D deficiency, unspecified, E66.9 - Obesity, unspecified, I10 - Essential (primary) hypertension, J45.20 - Mild intermittent asthma, uncomplicated, Z13.1 - Encounter for screening for diabetes mellitus, Z13.220 - Encounter for screening for lipoid disorders Aspartate Amino Transferase 05/16/25 E55.9 - Vitamin D deficiency, unspecified, E66.9 - Obesity, unspecified, I10 - Essential (primary) hypertension, J45.20 - Mild intermittent asthma, uncomplicated, Z13.1 - Encounter for screening for diabetes mellitus, Z13.220 - Encounter for screening for lipoid disorders Lipid Panel 05/16/25 E55.9 - Vitamin D deficiency, unspecified, E66.9 - Obesity, unspecified, I10 - Essential (primary) hypertension, J45.20 - Mild intermittent asthma, uncomplicated, Z13.1 - Encounter for screening for diabetes mellitus, Z13.220 - Encounter for screening for lipoid disorders Hemoglobin and Hematocrit 05/16/25 E55.9 - Vitamin D deficiency, unspecified, E66.9 - Obesity, unspecified, I10 - Essential (primary) hypertension, J45.20 - Mild intermittent asthma, uncomplicated, Z13.1 - Encounter for screening for diabetes mellitus, Z13.220 - Encounter for screening for lipoid disorders
--- OUTSIDE RECORDS SUMMARY | 2024-12-22 13:23 | XMS_ITS | Clinical Summary ---
Author Organization [employer] [facility] Address [address] [place] [address] Care Team Providers Care Quiller Tender Name Role Phone Unavailable Primary Care Provider Unavailabl e Surgical History Surgery Date Site/Laterality Comments SECTION PROCEDURE: HISTORICAL DELIVERY TUBAL LIGATION 1998 PROCEDURE: HISTORICAL TUBAL LIGATION; COMMENT: Helen OTHER SURGICAL HISTORY Right PROCEDURE: [place] COCHLEAR DEVICE IMPLANTATION W/WO MASTOIDECTOMY; COMMENT: Dr. Riojas ,?2017 Medical History Medical History Date Comments Asthma DX:Asthma Depression DX:Depression HSV-2 infection DX:HSV-2 infecti on; COMMENT: episodic tx Gastric ulcer DX:Gastric ulcer Kidney stone 03/22/2020 DX:Kidney stone Family History Medical History Relation Name Comments Other: Healthy Father Other: Healthy Mother Relation Name Status Comments Father Alive Mother Alive Social History Tobacco Use Types Packs/Day Years Used Date Smoking Tobacco: Never Smokeless Tobacco: Never Alcohol Use Standard Drinks/Week Comments No 0 (1 standard drink = 0.6 oz pur e alcohol) Comments Unknown Sex and Gender Information Value Date Recorded Sex Assigned at Not on file Legal Sex Female 5:11 PM EST Gender Identity Not on file Sexual Orientation Not on file Obstetrics History Plan of Treatment Health Maintenance Due Date Last Done Comments DTaP,Tdap,and Td Vaccines (1 - Tdap) 1990 Hepatitis B Vaccines (1 of 3 - 19+ 3-dose series) 1990 Pneumococcal Vaccine: 50+ Years (1 of 1 - PCV) 2021 Zoster Vaccines (1 of 2) 2021 Colorectal Cancer Screening: Colonoscopy 09/27/2022 Depression Screening 09/27/2022 HIV Screening 09/27/2022 Hepatitis C Screening 09/27/2022 Social Influencers of Health Screening 09/27/2022 Breast Cancer Screening 01/20/2023 01/21/20 21, 06/23/2019 Cervical Cancer Screening: P ap Smear 11/05/2023 11/05/2020 COVID-19 Vaccine (2023-2 5 season) 2024 Influenza Vaccine (#1) 2024 HIB Vaccines Aged Out No longer eligi ble based on patient's age to complete this topic HPV Vaccines Aged Out No longer eligi ble based on patient's age to complete this topic Hepatitis A Vaccines Aged Out No long er eligible based on patient's age to complete this topic IPV Vaccines Aged Out No longer eligi ble based on patient's age to complete this topic MMR Vaccines Aged Out No longer eligi ble based on patient's age to complete this topic Meningococcal ACWY Vaccine Aged Out N o longer eligible based on patient's age to complete this topic Meningococcal B Vacine Aged Out No lo nger eligible based on patient's age to complete this topic Pneumococcal Vaccine: Pediatrics (0 to 5 Years) and At-Risk Patients (6 to 64 Years) Aged Out No longer eligible b ased on patient's age to complete this topic RSV Immunization Patients Under 20 months Aged Out No longer eligible b ased on patient's age to complete this topic Varicella Vaccines Aged Out No longer eligible based on patient's age to complete this topic Procedures Procedure Name Priority Date/Time Associated Diagnosis Comments [facility] Routine 01/20/2021 4:33 PM EDT Encounter for screening mammogram for malignant neoplasm of breast PAP SMEAR Routine 11/05/2020 from Last 3 Months or Most Recently Relevant to Health Maintenance Results * [facility] (01/20/2021 4:33 PM EDT) Anatomical Region Laterality Modality Mammography 01/20/2021 2:23 PM EDT Narrative 01/20/2021 4:[address] [facility] Diagnostic Imaging Department [address] [place] [address] Patient: ??FONT,ERIBERTO ?/Age/Sex: 1970 - 50 - F Unit#: ??[id number] ? Location/Status: ??SPDIMAM/REG CLI ? Mnemonic/Ordering Site: ??DIGSC/SPMAM Ordering Physician: ??YOSEPH MCCALL RIDING COACH Dorothy Screening Digital - 01/20/21 - 1514 INDICATION: SCREENING COMPARISON: [facility] and outside mammograms dating back to 08/02/2015 TECHNIQUE: CC and MLO views of the breasts were obtained, using full field digital mammography with 3D tomosynthesis views in the MLO projection. XCCL view of the right breast was obtained. Computer aided detection with the [employer] 7.2-H was employed. FINDINGS: The breasts are almost entirely composed of fat. No suspicious masses, suspicious microcalcifications, or areas of architectural distortion are identified. ??Coarse benign-appearing calcification is visualized on the left. ??There are no secondary signs of breast malignancy. ??Compared to the prior exam, no adverse interval change. IMPRESSION: ??No specific mammographic evidence of breast malignancy. Lack of an imaging correlate should not deter or delay biopsy of a clinically significant palpable finding. BI-RADS ??- Category 2 - Benign finding 3342F, 7025F Annual screening mammography is recommended. Patient entered into a reminder system with a target date for the next mammogram. (G0202 / [id number]) , ??[id number] Dictating Physician: ??AURA DINERO MD Electronically Signed by: ??AURA DINERO MD Dic Date/Time: ??01/20/21 7961 Sign date/Time: ??01/20/21 163 Procedure Note Aura Dinero MD - 10/17/2022 [facility] Diagnostic Imaging Department [address] [place] [address] Patient: HALLEY QUINTANAKA /Age/Sex: 1970 - 50 - F Unit#: [id number] Location/Status: SPDIMAM/REG CLI Mnemonic/Ordering Site: [facility] Ordering Physician: YOSEPH MCCALL NP Dorohty Screening Digital - 01/20/21 - 6064 INDICATION: SCREENING COMPARISON: [facility] and outside mammograms dating back to 08/02/2015 TECHNIQUE: CC and MLO views of the breasts were obtained, using full field digital mammography with 3D tomosynthesis views in the MLO projection. XCCL viewof the right breast was obtained. Computer aided detection with the [employer] 7.2-H was employed. FINDINGS: The breasts are almost entirely composed of fat. No suspicious masses, suspicious microcalcifications, or areas ofarchitectural distortion are identified. Coarse benign-appearing calcification isvisualized on the left. There are no secondary signs of breast malignancy. Comparedto the prior exam, no adverse interval change. IMPRESSION: No specific mammographic evidence of breast malignancy. Lack of an imaging correlate should not deter or delay biopsy of aclinically significant palpable finding. BI-RADS - Category 2 - Benign finding 3342F, 7025F Annual screening mammography is recommended. Patient entered into a reminder system with a target date for the next mammogram. ([id number] / [id number]) , [id number] Dictating Physician: AURA DINERO MD Electronically Signed by: AURA DINERO MD Dic Date/Time: 01/20/21 1629 Sign date/Time: 01/20/21 1633 us Yoseph Mccall NP IMG BI PROCEDURES Final Result * Pap smear (11/05/2020) 11/05/2020 Narrative HISTORICAL TESTING LAB RESULTING AGENCY - 11/10/2020 1:10 PM EST [id number] THINPREP PAP, IMAGED: NEGATIVE FOR SQUAMOUS INTRAEPITHELIAL LESION AND MALIGNANCY . GRACIELA NIXON(ASCP) (CASE ELECTRONICALLY SIGNED 11 10 2020) RESULT OF APTIMA HIGH RISK HPV ASSAY: HIGH RISK HPV: ??NEGATIVE (SEROTYPES 16,18,31,33,35,39,45,51,52,56,58,59,66,68) COMPLETED ON 2020-11-09 ADEQUACY: SATISFACTORY ENDOCERVICAL/TRANSFORMATION ZONE COMPONENT ABSENT. SOURCE: THINPREP PAP HPV ANY DX: ??REFLEX 16 AND 18, CERVICAL, IMAGED CLINICAL INFORMATION: HPV ANY DIAGNOSIS. HORMONES, PAP HX NEG, LPS 2017, NO LMP RECORDED, IUD [Z12.4, Z01.419] us Gloria MARTIN LAB CYTOLOGY ORDERABLES Final Result HISTORICAL TESTING LAB RESULTING AGENCY from Last 3 Months or Most Recently Relevant to Health Maintenance
== END 2024-12-22 13:43 | disposition home or self-care (01) ==
PROVIDERS: PCP Internal Medicine; Visit Provider Internal Medicine
DX: J45.20 Mild intermittent asthma, uncomplicated (principal); E66.9 Obesity, unspecified; I10 Essential (primary) hypertension; Z68.29 Body mass index [BMI] 29.0-29.9, adult

== ENCOUNTER → 2024-12-22 11:35 | Outpatient (BNVA) | payer OTHER, SELFPAY | PROVIDERS: PCP Internal Medicine; Visit Provider Internal Medicine | DX: E66.9 Obesity, unspecified (principal); E55.9 Vitamin D deficiency, unspecified; R12 Heartburn; J45.20 Mild intermittent asthma, uncomplicated; I10 Essential (primary) hypertension | CPT/HCPCS: 96127; 99212 ==

== ENCOUNTER 2025-02-27 12:42 | Outpatient (AMB) | payer OTHER, SELFPAY ==
--- OUTSIDE RECORDS SUMMARY | 2025-02-27 13:05 | XMS_ITS | Clinical Summary ---
Author Organization [employer] [facility] Address [address] [place] [address] Care Team Providers Care Catering Assistant Name Role Phone Unavailable Primary Care Provider Unavailabl e Surgical History Surgery Date Site/Laterality Comments SECTION PROCEDURE: HISTORICAL DELIVERY TUBAL LIGATION 1998 PROCEDURE: HISTORICAL TUBAL LIGATION; COMMENT: Helen OTHER SURGICAL HISTORY Right PROCEDURE: [place] COCHLEAR DEVICE IMPLANTATION W/WO MASTOIDECTOMY; COMMENT: Dr. [...] Vaccine (2023-2 5 season) 2024 Influenza Vaccine (Season Ended) 2025 HIB Vaccines Aged Out No longer eligi [...] age to complete this topic Meningococcal B Vaccine Aged Out No l onger eligible based on patient's age to complete [...] Procedure Name Priority Date/Time Associated Diagnosis Comments [facility] SCREENING DIGITAL Routine 01/20/2021 4:33 PM EDT Encounter for screening mammogram for malignant neoplasm of breast PAP SMEAR Routine 11/05/2020 from Last 3 Months or Most Recently Relevant to Health Maintenance Results * [facility] SCREENING DIGITAL (01/20/2021 4:33 PM EDT) Anatomical Region Laterality Modality Mammography 01/20/2021 2:23 PM EDT Narrative 01/20/2021 4:33 PM EDT [facility] Diagnostic Imaging Department [address] [place] [address] Patient: ??FONT,ERIBERTO ?/Age/Sex: 1970 - 50 - F Unit#: ??[id number] ? Location/Status: ??SPDIMAM/REG CLI ? Mnemonic/Ordering Site: ??DIGSC/SPMAM Ordering Physician: ??YOSEPH MCCALL FISH ROD MAKER Dorothy Screening Digital - 01/20/21 - 1514 INDICATION: SCREENING COMPARISON: [facility] and outside mammograms dating back to 08/02/2015 TECHNIQUE: CC and MLO views of the breasts were obtained, using full field digital mammography with 3D tomosynthesis views in the MLO projection. XCCL view of the right breast was obtained. Computer aided detection with the [employer] 7.2-H was employed. FINDINGS: The breasts are [...] date for the next mammogram. (G0202 / [id number]) , ??[id number] Dictating Physician: ??AURA DINERO MD Electronically Signed by: ??AURA DINERO MD Dic Date/Time: ??01/20/21 7145 Sign date/Time: ??01/20/21 1634 Procedure Note Aura Dinero MD - 10/17/2022 [facility] Diagnostic Imaging Department [address] [place] [address] Patient: HALLEY QUINTANAKA /Age/Sex: 1970 - 50 - F Unit#: [id number] Location/Status: SPDIMAM/REG CLI Mnemonic/Ordering Site: [facility] Ordering Physician: YOSEPH MCCALL NP Dorothy Screening Digital - 01/20/21 - 7724 INDICATION: SCREENING COMPARISON: [facility] and outside mammograms dating back to 08/02/2015 TECHNIQUE: CC and MLO views of the breasts were obtained, using full field digital mammography with 3D tomosynthesis views in the MLO projection. XCCL viewof the right breast was obtained. Computer aided detection with the [employer] 7.2-H was employed. FINDINGS: The breasts are [...] a target date for the next mammogram. ([id number] / [id number]) , [id number] Dictating Physician: AURA DINERO MD Electronically Signed by: AURA DINERO MD Dic Date/Time: 01/20/21 1629 Sign date/Time: 01/20/21 1633 us Yoseph Mccall NP IMG BI PROCEDURES Final Result * Pap smear (11/05/2020) 11/05/2020 Narrative HISTORICAL TESTING LAB RESULTING AGENCY - 11/10/2020 1:10 PM EST [id number] THINPREP PAP, IMAGED: NEGATIVE FOR SQUAMOUS INTRAEPITHELIAL [...]
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
[2025-02-27 13:45] VITALS: BP 112/70; PULSE 82; O2SAT 98; BMI 29.4
== END 2025-02-27 15:02 | disposition home or self-care (01) ==
PROVIDERS: PCP Internal Medicine; Visit Provider Nurse Practitioner Family
DX: M54.16 Radiculopathy, lumbar region (principal); Z04.3 Encounter for examination and observation following other accident

== ENCOUNTER → 2025-02-27 12:42 | Outpatient (BNVA) | payer OTHER, SELFPAY | PROVIDERS: PCP Internal Medicine; Visit Provider Nurse Practitioner Family | DX: M54.16 Radiculopathy, lumbar region (principal) | CPT/HCPCS: 99212 ==

== ENCOUNTER 2025-03-12 10:20 | Outpatient (AMB) | payer OTHER, SELFPAY ==
--- NOTE | 2025-03-12 10:44 | AM.OFFWIN_ITS ---
Intake Vital Signs 03/12/25 10:47 BP 112/78 Blood Pressure Location Lt brachial Position Sitting Pulse 68 Pulse Source Pulse Oximeter Pulse Oximetry (%) 98 Oxygen Delivery Method Room Air Intake Visit Reasons: EP-?uti Intake Note: Patient here for frequent urination, bladder pressure that has been present for about 4 weeks. Patient Tobacco Use Status: Former Tobacco user Tester Compressed Gases Required: Yes Information Interpreted: non-clinical & clinical Allergies naproxen [From NAPROSYN] Adverse Reaction (Unknown, Verified 03/12/25 10:46) STOMACH UPSET Do you need a note to return to daycare/school/sports/work: No HPI HPI Comments History of Present Illness Details 54 y/o Female patient who presents to [facility] walk in clinic with c/o frequent urination, and bladder pressure that has been present for about 4 weeks. [facility] Medical History Chronic heartburn Essential hypertension COVID-19 vaccination declined Hx of dysfunctional uterine bleeding History of use of contraceptive intrauterine device (IUD) Mild intermittent asthma Cochlear implant in place COVID-19 virus infection Nephrolithiasis Vitamin D deficiency Obesity (BMI 30-39.9) Hearing loss associated with syndrome of both ears Surgical History Hx of esophagogastroduodenoscopy History of cochlear implant Family History Father Diabetes mellitus HTN (hypertension) Hyperlipidemia Mother HTN (hypertension) Hyperlipidemia Diabetes mellitus Social History Housing: Apartment Patient Tobacco Use Status: Former Tobacco user e-Cigarette/Vaping Use: Never Used service: No Current occupational status: unemployed Cognitive needs: No Hearing needs: No Vision needs: No Review of Systems Const All systems reviewed & are unremarkable except as noted in HPI and below Physical Exam Vital Signs: Last Vital Signs Pulse 68 03/12/25 10:47 BP 112/78 03/12/25 10:47 Pulse Ox 98 03/12/25 10:47 Oxygen Delivery Method Room Air 03/12/25 10:47 Const General: no acute distress Nutritional Appearance: well nourished Orientation/consciousness: patient oriented x3 General: Yes no CVA tenderness Back/Spine/Pelvis Back: no CVA tenderness Neuro General: patient oriented x3, gait normal and moves all extremities Psych Speech and movement: Normal speech and movement present Assessment & Plan Assessment & Plan (1) Cystitis: Code(s): N30.90 - Cystitis, unspecified without hematuria Plan: In-office U/A positive for Leuko. Will send urine for C&S. Ordered Abx for 5 days. Orders: Orders UA CC w/rflx Micro + Cult Today N30.90 - Cystitis, unspecified without hematuria Medications: New cefuroxime axetil 500 mg PO BID 5 days 10 tabs 0RF N30.90 - Cystitis, unspecified without hematuria Coding Level of Care Code Est Pt Level 4 (79309) Diagnoses Cystitis N30.90 Time Spent (min) 20
[2025-03-12 10:47] VITALS: BP 112/78; PULSE 68; O2SAT 98
--- OUTSIDE RECORDS SUMMARY | 2025-03-12 11:21 | XMS_ITS | Clinical Summary ---
Author Organization [employer] [facility] Address [address] [place] [address] Care Team Providers Care Feed Mill Operator Name Role Phone Unavailable Primary Care Provider Unavailabl e Surgical History Surgery Date Site/Laterality Comments SECTION PROCEDURE: HISTORICAL DELIVERY TUBAL LIGATION 1998 PROCEDURE: HISTORICAL TUBAL LIGATION; COMMENT: Helen OTHER SURGICAL HISTORY Right PROCEDURE: [place] COCHLEAR DEVICE IMPLANTATION W/WO MASTOIDECTOMY; COMMENT: Dr. [...] PM EDT Narrative 01/20/2021 4:33 PM EDT [facility] Diagnostic Imaging Department [address] [place] [address] Patient: ??FONT,ERIBERTO ?/Age/Sex: 1970 - 50 - F Unit#: ??[id number] ? Location/Status: ??SPDIMAM/REG CLI ? Mnemonic/Ordering Site: ??DIGSC/SPMAM Ordering Physician: ??YOSEPH MCCALL IT RISK ADVISOR Dorothy Screening Digital - 01/20/21 - 1514 INDICATION: SCREENING COMPARISON: [facility] and outside mammograms dating back to 08/02/2015 TECHNIQUE: CC and MLO views of the breasts were obtained, using full field digital mammography with 3D tomosynthesis views in the MLO projection. XCCL view of the right breast was obtained. Computer aided detection with the [email or web address] 7.2-H was employed. FINDINGS: The breasts are [...] date for the next mammogram. (G0202 / [id number]) , ??[id number] Dictating Physician: ??AURA DINERO MD Electronically Signed by: ??AURA DINERO MD Dic Date/Time: ??01/20/21 7328 Sign date/Time: ??01/20/21 1636 Procedure Note Aura Dinero MD - 10/17/2022 [facility] Diagnostic Imaging Department [address] [place] [address] Patient: HALLEY QUINTANAKA /Age/Sex: 1970 - 50 - F Unit#: [id number] Location/Status: SPDIMAM/REG CLI Mnemonic/Ordering Site: [facility] Ordering Physician: YOSEPH MCCALL NP Dorothy Screening Digital - 01/20/21 - 7114 INDICATION: SCREENING COMPARISON: [facility] and outside mammograms dating back to 08/02/2015 TECHNIQUE: CC and MLO views of the breasts were obtained, using full field digital mammography with 3D tomosynthesis views in the MLO projection. XCCL viewof the right breast was obtained. Computer aided detection with the [email or web address] 7.2-H was employed. FINDINGS: The breasts are [...] a target date for the next mammogram. ([id number] / [id number]) , [id number] Dictating Physician: AURA DINERO MD Electronically Signed by: AURA DINERO MD Dic Date/Time: 01/20/21 1629 Sign date/Time: 01/20/21 1633 us Yoseph Mccall NP IMG BI PROCEDURES Final Result * Pap smear (11/05/2020) 11/05/2020 Narrative HISTORICAL TESTING LAB RESULTING AGENCY - 11/10/2020 1:10 PM EST [id number] THINPREP PAP, IMAGED: NEGATIVE FOR SQUAMOUS INTRAEPITHELIAL [...]
== END 2025-03-12 11:13 | disposition home or self-care (01) ==
PROVIDERS: PCP Internal Medicine; Visit Provider Nurse Practitioner Family
DX: N30.90 Cystitis, unspecified without hematuria (principal); Z13.9 Encounter for screening, unspecified

== ENCOUNTER 2025-03-12 10:20 | Outpatient (REF) | payer OTHER, SELFPAY ==
--- OUTSIDE RECORDS SUMMARY | 2025-03-12 12:24 | XMS_ITS | Clinical Summary ---
Author Organization [employer] [facility] Address [address] [place] [address] Care Team Providers Care Sheet Rock Installer Name Role Phone Unavailable Primary Care Provider Unavailabl e Surgical History Surgery Date Site/Laterality Comments SECTION PROCEDURE: HISTORICAL DELIVERY TUBAL LIGATION 1998 PROCEDURE: HISTORICAL TUBAL LIGATION; COMMENT: Helen OTHER SURGICAL HISTORY Right PROCEDURE: [place] COCHLEAR DEVICE IMPLANTATION W/WO MASTOIDECTOMY; COMMENT: Dr. [...] PM EDT Narrative 01/20/2021 4:33 PM EDT [facility] Diagnostic Imaging Department [address] [place] [address] Patient: ??FONT,ERIBERTO ?/Age/Sex: 1970 - 50 - F Unit#: ??[id number] ? Location/Status: ??SPDIMAM/REG CLI ? Mnemonic/Ordering Site: ??DIGSC/SPMAM Ordering Physician: ??YOSEPH MCCALL BAND SCROLL SAW OPERATOR Dorothy Screening Digital - 01/20/21 - 1514 INDICATION: SCREENING COMPARISON: [facility] and outside mammograms dating back to 08/02/2015 TECHNIQUE: CC and MLO views of the breasts were obtained, using full field digital mammography with 3D tomosynthesis views in the MLO projection. XCCL view of the right breast was obtained. Computer aided detection with the [employer] 7.2-H was employed. FINDINGS: The breasts are [...] date for the next mammogram. (G0202 / [id number]) , ??[id number] Dictating Physician: ??AURA DINERO MD Electronically Signed by: ??AURA DINERO MD Dic Date/Time: ??01/20/21 7959 Sign date/Time: ??01/20/21 1638 Procedure Note Aura Dinero MD - 10/17/2022 [facility] Diagnostic Imaging Department [address] [place] [address] Patient: HALLEY QUINTANAKA /Age/Sex: 1970 - 50 - F Unit#: [id number] Location/Status: SPDIMAM/REG CLI Mnemonic/Ordering Site: [facility] Ordering Physician: YOSEPH MCCALL NP Dorothy Screening Digital - 01/20/21 - 8024 INDICATION: SCREENING COMPARISON: [facility] and outside mammograms dating back to 08/02/2015 TECHNIQUE: CC and MLO views of the breasts were obtained, using full field digital mammography with 3D tomosynthesis views in the MLO projection. XCCL viewof the right breast was obtained. Computer aided detection with the [employer] 7.2-H was employed. FINDINGS: The breasts are [...] a target date for the next mammogram. ([id number] / [id number]) , [id number] Dictating Physician: AURA DINERO MD Electronically Signed by: AURA DINERO MD Dic Date/Time: 01/20/21 1629 Sign date/Time: 01/20/21 1633 us Yoseph Mccall NP IMG BI PROCEDURES Final Result * Pap smear (11/05/2020) 11/05/2020 Narrative HISTORICAL TESTING LAB RESULTING AGENCY - 11/10/2020 1:10 PM EST [id number] THINPREP PAP, IMAGED: NEGATIVE FOR SQUAMOUS INTRAEPITHELIAL [...]
[2025-03-12 13:29] LABS: Appearance Urine Clear; Color Urine Yellow; Glucose Urine UA Negative (Negative); Leukocyte Esterase Urine Large (3+) (Negative); Nitrite Urine Negative (Negative); PH 5.5 (5.0-9.0); UMIC TRIGGER UACC YES; Urine Blood Trace (Negative); Urine Ketones Trace mg/dL (Negative); Urine Protein 30 (1+) mg/dL (Neg-Trace)
[2025-03-12 13:35] LABS: Bacteria Urine None Seen (None Seen); Hyaline Casts Urine 0-2 /LPF (0-2); RBC Urine 0-2 /HPF (0-2); UACC Culture Trigger YES; WBC Urine 21-50 /HPF (0-5)
== END 2025-03-12 10:21 | disposition home or self-care (01) ==
LOC: HO.LAB 10:20
PROVIDERS: Nurse Practitioner Family; PCP Internal Medicine
DX: N30.90 Cystitis, unspecified without hematuria (principal)
CPT/HCPCS: 81001; 81003; 87086; 99212

== ENCOUNTER 2025-03-19 09:56 | Outpatient (REF) | payer OTHER, SELFPAY ==
--- OUTSIDE RECORDS SUMMARY | 2025-03-19 12:09 | XMS_ITS | Clinical Summary ---
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 [...] EDT Narrative 01/20/2021 4:33 PM EDT [facility] Diagnostic Imaging Department [address] [place] [address] Patient: ??FONT,ERIBERTO ?/Age/Sex: 1970 - 50 - F Unit#: ??[id number] ? Location/Status: ??SPDIMAM/REG CLI ? Mnemonic/Ordering Site: ??DIGSC/SPMAM Ordering Physician: ??YOSEPH MCCALL MANAGER CRITICAL CARE UNIT Dorothy Screening Digital - 01/20/21 - 1514 INDICATION: SCREENING COMPARISON: [facility] and outside mammograms dating back to 08/02/2015 TECHNIQUE: CC and MLO views of the breasts were obtained, using full field digital mammography with 3D tomosynthesis views in the MLO projection. XCCL view of the right breast was obtained. 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 FINDINGS: The breasts are [...] date for the next mammogram. (G0202 / [id number]) , ??[id number] Dictating Physician: ??AURA DINERO MD Electronically Signed by: ??AURA DINERO MD Dic Date/Time: ??01/20/21 6127 Sign date/Time: ??01/20/21 1639 Procedure Note Aura Dinero MD - 10/17/2022 [facility] Diagnostic Imaging Department [address] [place] [address] Patient: HALLEY QUINTANAKA /Age/Sex: 1970 - 50 - F Unit#: [id number] Location/Status: SPDIMAM/REG CLI Mnemonic/Ordering Site: [facility] Ordering Physician: YOSEPH MCCALL NP Dorothy Screening Digital - 01/20/21 - 2544 INDICATION: SCREENING COMPARISON: [facility] and outside mammograms dating back to 08/02/2015 TECHNIQUE: CC and MLO views of the breasts were obtained, using full field digital mammography with 3D tomosynthesis views in the MLO projection. XCCL viewof the right breast was obtained. 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 FINDINGS: The breasts are [...] a target date for the next mammogram. ([id number] / [id number]) , [id number] Dictating Physician: AURA DINERO MD Electronically Signed by: AURA DINERO MD Dic Date/Time: 01/20/21 1629 Sign date/Time: 01/20/21 1633 us Yoseph Mccall NP IMG BI PROCEDURES Final Result * Pap smear (11/05/2020) 11/05/2020 Narrative HISTORICAL TESTING LAB RESULTING AGENCY - 11/10/2020 1:10 PM EST [id number] THINPREP PAP, IMAGED: NEGATIVE FOR SQUAMOUS INTRAEPITHELIAL [...]
[2025-03-19 13:39] LABS: Alanine Aminotransferase 27 U/L (0-31); Anion Gap 15 (12-20); Aspartate Amino Transferase 29 U/L (5-31); Blood Urea Nitrogen 12 mg/dL (9-16); Calcium 9.6 mg/dL (8.4-10.2); Carbon Dioxide 25 mmol/L (22-29); Chloride 108 mmol/L (96-108); Estimated Glomerular Filt Rate > 60; Glucose Fasting 89 mg/dL (60-99); Potassium 3.9 mmol/L (3.3-5.1); Sodium 144 mmol/L (135-145)
[2025-03-19 13:59] LABS: Vitamin D 25-OH Total 29.3 ng/mL (>30)
== END 2025-03-19 09:57 | disposition home or self-care (01) ==
LOC: HO.HMGCLDS 09:56
PROVIDERS: PCP Internal Medicine; Referring Provider Internal Medicine; Visit Provider Nurse Practitioner Family
DX: E55.9 Vitamin D deficiency, unspecified (principal); E66.9 Obesity, unspecified; I10 Essential (primary) hypertension; M51.369 Other intervertebral disc degeneration, lumbar region without mention of lumbar back pain or lower extremity pain; M47.817 Spondylosis without myelopathy or radiculopathy, lumbosacral region; M54.16 Radiculopathy, lumbar region; M53.3 Sacrococcygeal disorders, not elsewhere classified
CPT/HCPCS: 36415; 80048; 82306; 84450; 84460; 99212

== ENCOUNTER 2025-03-19 09:56 | Outpatient (AMB) | payer OTHER, SELFPAY ==
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
[2025-03-19 10:10] VITALS: BP 124/74; PULSE 84; O2SAT 99; BMI 29.5
--- OUTSIDE RECORDS SUMMARY | 2025-03-19 10:17 | XMS_ITS | Clinical Summary ---
Author Organization [employer] [facility] Address [address] [place] [address] Care Team Providers Care Resources Representative Name Role Phone Unavailable Primary Care Provider Unavailabl e Surgical History Surgery Date Site/Laterality Comments SECTION PROCEDURE: HISTORICAL DELIVERY TUBAL LIGATION 1998 PROCEDURE: HISTORICAL TUBAL LIGATION; COMMENT: Helen OTHER SURGICAL HISTORY Right PROCEDURE: [place] COCHLEAR DEVICE IMPLANTATION W/WO MASTOIDECTOMY; COMMENT: Dr. [...] PM EDT Narrative 01/20/2021 4:33 PM EDT [facility] Diagnostic Imaging Department [address] [place] [address] Patient: ??FONT,ERIBERTO ?/Age/Sex: 1970 - 50 - F Unit#: ??[id number] ? Location/Status: ??SPDIMAM/REG CLI ? Mnemonic/Ordering Site: ??DIGSC/SPMAM Ordering Physician: ??YOSEPH MCCALL MULTIPLE LAUNCH ROCKET SYSTEM CREWMEMBER Dorothy Screening Digital - 01/20/21 - 1514 INDICATION: SCREENING COMPARISON: [facility] and outside mammograms dating back to 08/02/2015 TECHNIQUE: CC and MLO views of the breasts were obtained, using full field digital mammography with 3D tomosynthesis views in the MLO projection. XCCL view of the right breast was obtained. 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 FINDINGS: The breasts are [...] date for the next mammogram. (G0202 / [id number]) , ??[id number] Dictating Physician: ??AURA DINERO MD Electronically Signed by: ??AURA DINERO MD Dic Date/Time: ??01/20/21 7383 Sign date/Time: ??01/20/21 1632 Procedure Note Aura Dinero MD - 10/17/2022 [facility] Diagnostic Imaging Department [address] [place] [address] Patient: HALLEY QUINTANAKA /Age/Sex: 1970 - 50 - F Unit#: [id number] Location/Status: SPDIMAM/REG CLI Mnemonic/Ordering Site: [facility] Ordering Physician: YOSEPH MCCALL NP Dorothy Screening Digital - 01/20/21 - 5134 INDICATION: SCREENING COMPARISON: [facility] and outside mammograms dating back to 08/02/2015 TECHNIQUE: CC and MLO views of the breasts were obtained, using full field digital mammography with 3D tomosynthesis views in the MLO projection. XCCL viewof the right breast was obtained. 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 FINDINGS: The breasts are [...] a target date for the next mammogram. ([id number] / [id number]) , [id number] Dictating Physician: AURA DINERO MD Electronically Signed by: AURA DINERO MD Dic Date/Time: 01/20/21 1629 Sign date/Time: 01/20/21 1633 us Yoseph Mccall NP IMG BI PROCEDURES Final Result * Pap smear (11/05/2020) 11/05/2020 Narrative HISTORICAL TESTING LAB RESULTING AGENCY - 11/10/2020 1:10 PM EST [id number] THINPREP PAP, IMAGED: NEGATIVE FOR SQUAMOUS INTRAEPITHELIAL [...]
== END 2025-03-19 10:33 | disposition home or self-care (01) ==
LOC: HO.PMC 09:57
PROVIDERS: PCP Internal Medicine; Visit Provider Nurse Practitioner Family
DX: M51.369 Other intervertebral disc degeneration, lumbar region without mention of lumbar back pain or lower extremity pain (principal); M47.817 Spondylosis without myelopathy or radiculopathy, lumbosacral region; M54.16 Radiculopathy, lumbar region; M53.3 Sacrococcygeal disorders, not elsewhere classified
CPT/HCPCS: 99214; G2211

== ENCOUNTER 2025-03-25 13:44 | Outpatient (AMB) | payer OTHER, SELFPAY ==
--- NOTE | 2025-03-25 13:48 | MHC.OFFVIS ---
Vital Signs 03/25/25 13:59 Height 5 ft 3 in Weight 166 lb BMI 29.4 BP 137/70 Blood Pressure Location Lt brachial Position Sitting Pulse 72 Pulse Oximetry (%) 97 Oxygen Delivery Method Room Air Intake Visit Reasons: Acid reflux Intake Note: Patient new consult for acid reflux. Patient cc: acid reflux with burning sensation on and off. Hr Business Partner Required: No Hr Business Partner Name: HNC interpeter Accompanied by: Self / Same As Patient Allergies naproxen [From NAPROSYN] Adverse Reaction (Unknown, Verified 03/25/25 13:55) STOMACH UPSET HPI HPI Acid reflux: Details: 54-year-old female here for initial evaluation of GERD. She is referred by Savanna Kramer. PMX Asthma Obesity Prolonged QT interval Hypertension Lumbar spondylosis with radiculopathy Hearing loss -cochlear implant GERD History of dysfunctional uterine bleeding Nephrolithiasis * SURGICAL HISTORY EGD-[facility] Cochlear implant * ALLERGIES Naproxen * [facility]Particle LABS: Laboratory Tests 03/19/25 11:35 Estimated GFR > 60 AST 29 ALT 27 EGD [facility] Sign Out Date: ? ?07/31/2022 ? Tissue Source: 1:ANTRUM BIOPSY ? ? Final Diagnosis: Stomach, antrum, biopsy: -?Gastric antral- and oxyntic type mucosa with rare foci of chronic inflammation and non-specific reactive changes. -?No?H. pylori?identified on hematoxylin and eosin-stained sections. Can't find report but did find pathology Sign Out Date: ? ?07/31/2022 ? Tissue Source: 1:ANTRUM BIOPSY ? Final Diagnosis: Stomach, antrum, biopsy: -?Gastric antral- and oxyntic type mucosa with rare foci of chronic inflammation and non-specific reactive changes. -?No?H. pylori?identified on hematoxylin and eosin-stained sections. TODAY'S VISIT [employer] She has had HB for many years. She [place] [facility] but they had no science interpreter so she did not understand what the results were. I will try to get the records. She used to be on 40mg omeprazole for many years via [facility], but her PCP changed it to 20mg and this is not helping her. I will get a barium swallow and US to see if there is any esophageal or GB pathology as a c/f, she had a negative biopsy for the same reason in 2021 for HP. She is aware of all the GERD triggers she should avoid and of the lifestyle and diet modifications. ROV 6 weeks. [facility] Medical History (Updated 03/25/25 @ 13:49 by GUILHERME Moore) Cystitis Chronic heartburn Essential hypertension COVID-19 vaccination declined Hx of dysfunctional uterine bleeding History of use of contraceptive intrauterine device (IUD) Mild intermittent asthma Cochlear implant in place COVID-19 virus infection Nephrolithiasis Vitamin D deficiency Obesity (BMI 30-39.9) Hearing loss associated with syndrome of both ears Surgical History Hx of esophagogastroduodenoscopy History of cochlear implant Family History Father Diabetes mellitus HTN (hypertension) Hyperlipidemia Mother HTN (hypertension) Hyperlipidemia Diabetes mellitus Social History Housing: Apartment Patient Tobacco Use Status: Former Tobacco user e-Cigarette/Vaping Use: Never Used service: No Current occupational status: unemployed Cognitive needs: No Hearing needs: No Vision needs: No Review of Systems Const Denies fatigue, Denies fever(s), Denies night sweats, Denies poor appetite and Denies weight loss ENT Denies Normal hearing present, Denies dental pain, Denies dysphagia, Reports hearing loss, Denies mouth pain, Denies odynophagia, Denies throat swelling, Denies tongue swelling and Reports other (Dentition adequate) GI Details: Denies abdominal pain, Denies melena, Denies bloating, Denies hematochezia, Denies constipation, Denies GI cramping, Denies dysphagia, Denies excessive flatus, Denies early satiety, Reports heartburn, Denies diarrhea, Denies nausea, Denies odynophagia, Denies vomiting and Denies hematemesis Skin/Breast Denies pruritus, Denies lesions, Denies rash and Denies jaundice Neuro Denies Normal hearing present and Denies Abnormal speech present Endo Denies fatigue Aller/Immun Denies throat swelling and Denies tongue swelling Physical Exam Vital Signs: Last Vital Signs Pulse 72 03/25/25 13:59 BP 137/70 03/25/25 13:59 Pulse Ox 97 03/25/25 13:59 Oxygen Delivery Method Room Air 03/25/25 13:59 BMI result Body Mass Index 29.4 Const General: cooperative, no acute distress, well developed and well groomed Nutritional Appearance: well nourished and obese Orientation/consciousness: oriented to person, oriented to place and oriented to time Limitations: No language barrier and other limitations HEENT Head: Yes normocephalic and Yes atraumatic Eyes General: appearance normal, both eyes and all related structures Pupils: Equal, round and reactive pupils present Neck Neck: Yes normal visual inspection and Yes no lymphadenopathy Thyroid: Thyroid normal Resp Effort & Inspection: normal respiratory effort and able to speak in complete sentences Auscultation: clear to auscultation bilaterally Cardio Rate: regular rate Rhythm: regular rhythm Heart sounds: Normal, physiologic split S2 sound present Peripheral pulses: radial pulses present and posterior tibial pulses present GI Inspection: No distended, No Abdominal panniculus present, Yes obesity and Yes striae Palpation (GI): Soft to palpation, nontender, no guarding, not rigid and No hepatosplenomegaly present Percussion: Yes normal to percussion Auscultation: normal bowel sounds Rectal Exam - Female: deferred Abdomen image: 1. surgical scar Skin General skin exam: no rashes or lesions noted, turgor normal, skin not dry, no jaundice, No spider nevi and no striae Rashes: no rashes Nails: normal Neuro General: oriented to person, oriented to place and oriented to time Cranial nerves: Yes Equal, round and reactive pupils present and No Normal hearing present Speech: No Abnormal speech present Extrem General: Yes normal to inspection, No clubbing, No cyanosis and No edema Psych Appearance: grossly normal and well kempt Mental Status: mental status grossly normal Speech and movement: Normal speech and movement present Affect: normal affect Attitude: cooperative Thought process: Normal thought process present and not confabulating Thought content: Normal thought content present Insight: Fair insight present (Psych) Judgement: Fair judgement present (Psych) Assessment & Plan Assessment & Plan (1) Chronic heartburn: Code(s): R12 - Heartburn Category: Medical (2) Obesity (BMI 30-39.9): Code(s): E66.9 - Obesity, unspecified Category: Medical Plan [employer] She has had HB for many years. She [place] an [place] and [place] [facility] but they had no science interpreter so she did not understand what the results were. I will try to get the records. She used to be on 40mg omeprazole for many years via [facility], but her PCP changed it to 20mg and this is not helping her. I will get a barium swallow and US to see if there is any esophageal or GB pathology as a c/f, she had a negative biopsy for the same reason in 2021 for HP. She is aware of all the GERD triggers she should avoid and of the lifestyle and diet modifications. ROV 6 weeks. Orders: Orders US abdomen complete Today R12 - Heartburn FL barium swallow Today R12 - Heartburn Comprehensive Met. Panel Today R12 - Heartburn Medications: New omeprazole 40 mg PO DAILY 30 caps 6RF 30 days R12 - Heartburn Discontinued omeprazole Discontinued Reason: Doctor's Order 20 mg PO DAILY 30 days 90 caps 0RF Coding Level of Care Code New Pt Level 3 (39650) Diagnoses Chronic heartburn R12 Obesity (BMI 30-39.9) E66.9
[2025-03-25 13:59] VITALS: BP 137/70; PULSE 72; O2SAT 97; BMI 29.4
--- OUTSIDE RECORDS SUMMARY | 2025-03-25 14:42 | XMS_ITS | Clinical Summary ---
Author Organization [facility] Address [address] [place] [address] Care Team Providers Care Cytology Teacher Name Role Phone Unavailable Primary Care Provider Unavailabl e Surgical History Surgery Date Site/Laterality Comments SECTION PROCEDURE: HISTORICAL DELIVERY TUBAL LIGATION 1998 PROCEDURE: HISTORICAL TUBAL LIGATION; COMMENT: Helen OTHER SURGICAL HISTORY Right PROCEDURE: ID COCHLEAR DEVICE IMPLANTATION W/WO MASTOIDECTOMY; COMMENT: Dr. [...] [facility] Diagnostic Imaging Department [address] [place] [address] Patient: ??FONT,ERIBERTO ?/Age/Sex: 1970 - 50 - F Unit#: ??[id number] ? Location/Status: ??SPDIMAM/REG CLI ? Mnemonic/Ordering Site: ??DIGSC/SPMAM Ordering Physician: ??YOSEPH MCCALL DAY CARE DIRECTOR Dorothy Screening Digital - 01/20/21 - 1514 INDICATION: SCREENING COMPARISON: [facility] and outside mammograms dating back to 08/02/2015 TECHNIQUE: CC and MLO views of the breasts were obtained, using full field digital mammography with 3D tomosynthesis views in the MLO projection. XCCL view of the right breast was obtained. Computer aided detection with the [employer] 7.2-H was employed. FINDINGS: The breasts are [...] date for the next mammogram. (G0202 / [id number]) , ??[id number] Dictating Physician: ??AURA DINERO MD Electronically Signed by: ??AURA DINERO MD Dic Date/Time: ??01/20/21 4399 Sign date/Time: ??01/20/21 1638 Procedure Note Aura Dinero MD - 10/17/2022 [facility] Diagnostic Imaging Department [address] [place] [address] Patient: HALLEY QUINTANAKA /Age/Sex: 1970 - 50 - F Unit#: [id number] Location/Status: SPDIMAM/REG CLI Mnemonic/Ordering Site: [facility] Ordering Physician: YOSEPH MCCALL NP Dorothy Screening Digital - 01/20/21 - 5764 INDICATION: SCREENING COMPARISON: [facility] and outside mammograms dating back to 08/02/2015 TECHNIQUE: CC and MLO views of the breasts were obtained, using full field digital mammography with 3D tomosynthesis views in the MLO projection. XCCL viewof the right breast was obtained. Computer aided detection with the [employer] 7.2-H was employed. FINDINGS: The breasts are [...] a target date for the next mammogram. (I2072 / [id number]) , [id number] Dictating Physician: AURA DINERO MD Electronically Signed by: AURA DINERO MD Dic Date/Time: 01/20/21 1629 Sign date/Time: 01/20/21 1633 us Yoseph Mccall NP IMG BI PROCEDURES Final Result * Pap smear (11/05/2020) 11/05/2020 Narrative HISTORICAL TESTING LAB RESULTING AGENCY - 11/10/2020 1:10 PM EST [id number] THINPREP PAP, IMAGED: NEGATIVE FOR SQUAMOUS INTRAEPITHELIAL [...]
== END 2025-03-25 14:41 | disposition home or self-care (01) ==
LOC: HO.HGI 13:45
PROVIDERS: PCP Internal Medicine; Visit Provider Nurse Practitioner
DX: R12 Heartburn (principal); E66.9 Obesity, unspecified
CPT/HCPCS: 99203

== ENCOUNTER → 2025-03-25 13:44 | Outpatient (BNVA) | payer OTHER, SELFPAY | PROVIDERS: PCP Internal Medicine; Visit Provider Nurse Practitioner | DX: R12 Heartburn (principal); E66.9 Obesity, unspecified; Z68.29 Body mass index [BMI] 29.0-29.9, adult | CPT/HCPCS: 99202 ==

== ENCOUNTER 2025-04-01 09:36 | Outpatient (REF) | payer OTHER, SELFPAY ==
--- NOTE | ~2025-04-01 | FL_ITS ---
EXAMINATION: XR BARIUM SWALLOW CLINICAL INFORMATION: Heartburn COMPARISON: None available. TECHNIQUE: Routine barium swallow was performed in upright view with thick barium and saltine crackers coated barium. Thin barium was administered in prone lying position. FINDINGS: Following oral administration of thick barium there is normal propagation bolus from the oral cavity through the pharynx, esophagus into stomach without any evidence of obstruction, narrowing or stricture. No laryngeal penetration or aspiration seen On oral administration of and barium coated saltine crackers there is normal mastication normal propagation of solid food from the oral cavity, pharynx and esophagus. Thin barium as bolus roderick was administered to posterior of solid food into the stomach. On placing patient prone lying and oral administration of thin barium there is normal propagation bolus from oral cavity, pharynx, esophagus into stomach. Incidental finding of a small hiatal hernia with mild gastroesophageal reflux. FLUOROSCOPY TIME: 2 minutes 11 seconds DOSE AREA PRODUCT: 1874 uGy-m2 (microgray-meter squared) FL/FL barium swallow IMPRESSION: Small sliding hiatal hernia with mild gastroesophageal reflux. Electronically signed by: Blade Nguyen MD 04/01/2025 02:48 PM EDT
--- OUTSIDE RECORDS SUMMARY | 2025-04-01 10:02 | XMS_ITS | Clinical Summary ---
Author Organization [facility] Address [address] [place] [address] Care Team Providers Care Field Research Associate Name Role Phone Unavailable Primary Care Provider Unavailabl e Surgical History Surgery Date Site/Laterality Comments SECTION PROCEDURE: HISTORICAL DELIVERY TUBAL LIGATION 1998 PROCEDURE: HISTORICAL TUBAL LIGATION; COMMENT: Helen OTHER SURGICAL HISTORY Right PROCEDURE: [place] COCHLEAR DEVICE IMPLANTATION W/WO MASTOIDECTOMY; COMMENT: Dr. [...] [facility] Diagnostic Imaging Department [address] [place] [address] Patient: ??FONT,ERIBERTO ?/Age/Sex: 1970 - 50 - F Unit#: ??[id number] ? Location/Status: ??SPDIMAM/REG CLI ? Mnemonic/Ordering Site: ??DIGSC/SPMAM Ordering Physician: ??YOSEPH MCCALL AUTOMATIC OUTSOLE CUTTER Dorothy Screening Digital - 01/20/21 - 1514 INDICATION: SCREENING COMPARISON: [facility] and outside mammograms dating back to 08/02/2015 TECHNIQUE: CC and MLO views of the breasts were obtained, using full field digital mammography with 3D tomosynthesis views in the MLO projection. XCCL view of the right breast was obtained. Computer aided detection with the [employer] 7.2-H was employed. FINDINGS: The breasts are [...] date for the next mammogram. (G0202 / [id number]) , ??[id number] Dictating Physician: ??AURA DINERO MD Electronically Signed by: ??AURA DINERO MD Dic Date/Time: ??01/20/21 3286 Sign date/Time: ??01/20/21 1631 Procedure Note Aura Dinero MD - 10/17/2022 [facility] Diagnostic Imaging Department [address] [place] [address] Patient: HALLEY QUINTANAKA /Age/Sex: 1970 - 50 - F Unit#: [id number] Location/Status: SPDIMAM/REG CLI Mnemonic/Ordering Site: [facility] Ordering Physician: YOSEPH MCCALL NP Dorothy Screening Digital - 01/20/21 - 7384 INDICATION: SCREENING COMPARISON: [facility] and outside mammograms dating back to 08/02/2015 TECHNIQUE: CC and MLO views of the breasts were obtained, using full field digital mammography with 3D tomosynthesis views in the MLO projection. XCCL viewof the right breast was obtained. Computer aided detection with the [employer] 7.2-H was employed. FINDINGS: The breasts are [...] a target date for the next mammogram. (Q5550 / [id number]) , 18375 Dictating Physician: AURA DINERO MD Electronically Signed by: AURA DINERO MD Dic Date/Time: 01/20/21 1629 Sign date/Time: 01/20/21 1633 us Yoseph Mccall NP IMG BI PROCEDURES Final Result * Pap smear (11/05/2020) 11/05/2020 Narrative HISTORICAL TESTING LAB RESULTING AGENCY - 11/10/2020 1:10 PM EST [id number] THINPREP PAP, IMAGED: NEGATIVE FOR SQUAMOUS INTRAEPITHELIAL [...]
== END 2025-04-01 09:37 | disposition home or self-care (01) ==
LOC: HO.XRAY 09:36
PROVIDERS: PCP Internal Medicine; Visit Provider Nurse Practitioner
DX: R12 Heartburn (principal)
CPT/HCPCS: 74220

== ENCOUNTER → 2025-04-01 09:38 | Outpatient (BNV) | payer OTHER, SELFPAY | PROVIDERS: PCP Internal Medicine; Visit Provider Radiology Diagnostic Radiology | DX: K44.9 Diaphragmatic hernia without obstruction or gangrene (principal) | CPT/HCPCS: 74246 ==

== ENCOUNTER 2025-04-16 09:53 | Outpatient (REF) | payer OTHER, SELFPAY ==
--- OUTSIDE RECORDS SUMMARY | 2025-04-16 10:59 | XMS_ITS | Clinical Summary ---
Author Organization [facility] Address [address] [place] [address] Care Team Providers Care Skein Drier Name Role Phone Unavailable Primary Care Provider Unavailabl e Surgical History Surgery Date Site/Laterality Comments SECTION PROCEDURE: HISTORICAL DELIVERY TUBAL LIGATION 1998 PROCEDURE: HISTORICAL TUBAL LIGATION; COMMENT: Helen OTHER SURGICAL HISTORY Right PROCEDURE: [place] COCHLEAR DEVICE IMPLANTATION W/WO MASTOIDECTOMY; COMMENT: Dr. [...] 4:[address] [facility] Diagnostic Imaging Department [address] [place] [address] Patient: ERIBERTO QUINTANAO.B./Age/Sex: 1970 - 50 - F Unit#: [id number] Location/Status: SPDIMAM/REG CLI Mnemonic/Ordering Site[facility] Ordering Physician: YOSEPH MCCALL NP Dorothy Screening Digital - 01/20/21 - 1514 INDICATION: SCREENING COMPARISON: [facility] and outside mammograms dating back to 08/02/2015 TECHNIQUE: CC and MLO views of the breasts were obtained, using full field digital mammography with 3D tomosynthesis views in the MLO projection. XCCL view of the right breast was obtained. Computer aided detection with the [employer] 7.2-H was employed. FINDINGS: The breasts are almost entirely composed of fat. No suspicious masses, suspicious microcalcifications, or areas of architectural distortion are identified. Coarse benign-appearing calcification is visualized on the left. There are no secondary signs of breast malignancy. Compared to the prior exam, no adverse interval change. IMPRESSION: No specific mammographic evidence of breast malignancy. Lack of an imaging correlate should not deter or delay biopsy of a clinically significant palpable finding. BI-RADS - Category 2 - Benign finding 3342F, 7025F Annual screening mammography is recommended. Patient entered into a reminder system with a target date for the next mammogram. G0645 / [id number]) , [id number] Dictating Physician: AURA DINERO MD Electronically Signed by: AURA DINERO MD Dic Date/Time: 01/20/21 1620 Sign date/Time: 01/20/21 1634 Procedure Note Aura Dinero MD - 10/17/2022 [facility] Diagnostic Imaging Department [address] [place] [address] Patient: ERIBERTO QUINTANA /Age/Sex: 1970 - 50 - F Unit#: [id number] Location/Status: SPDIMAM/REG CLI Mnemonic/Ordering Site: [facility] Ordering Physician: YOSEPH MCCALL NP Dorothy Screening Digital - 01/20/21 - 1514 INDICATION: SCREENING COMPARISON: [facility] and outside mammograms dating back to 08/02/2015 TECHNIQUE: CC and MLO views of the breasts were obtained, using full field digital mammography with 3D tomosynthesis views in the MLO projection. XCCL viewof the right breast was obtained. Computer aided detection with the [employer] 7.2-H was employed. FINDINGS: The breasts are [...] a target date for the next mammogram. G0325 / [id number]) , [id number] Dictating Physician: AURA DINERO MD Electronically Signed by: AURA DINERO MD Dic Date/Time: 01/20/21 1628 Sign date/Time: 01/20/21 4689 us Yoseph Mccall NP IMG BI PROCEDURES Final Result * Pap smear (11/05/2020) 11/05/2020 Narrative HISTORICAL TESTING LAB RESULTING AGENCY - 11/10/2020 1:10 PM EST [id number] THINPREP PAP, IMAGED: NEGATIVE FOR SQUAMOUS INTRAEPITHELIAL LESION AND MALIGNANCY . GRACIELA NIXON(ASCP) (CASE ELECTRONICALLY SIGNED 11 10 2020) RESULT OF APTIMA HIGH RISK HPV ASSAY: HIGH RISK HPV: NEGATIVE (SEROTYPES 16,18,31,33,35,39,45,51,52,56,58,59,66,68) COMPLETED ON 2020-11-09 ADEQUACY: SATISFACTORY ENDOCERVICAL/TRANSFORMATION ZONE COMPONENT ABSENT. SOURCE: THINPREP PAP HPV ANY DX: REFLEX 16 AND 18, CERVICAL, IMAGED CLINICAL INFORMATION: HPV ANY DIAGNOSIS. HORMONES, PAP HX NEG, LPS 2017, NO LMP RECORDED, IUD [Z12.4, Z01.419] Gloria Watson CNM LAB CYTOLOGY ORDERABLES Final Result HISTORICAL TESTING LAB RESULTING AGENCY from Last 3 Months or Most Recently Relevant to Health Maintenance
[2025-04-16 13:29] LABS: Alanine Aminotransferase 30 U/L (0-31); Albumin Level 4.4 g/dL (3.5-5.0); Alkaline Phosphatase 96 U/L (39-117); Anion Gap 13 (12-20); Aspartate Amino Transferase 28 U/L (5-31); Bilirubin Total 0.8 mg/dL (0.0-1.0); Blood Urea Nitrogen 8 mg/dL (9-16); Calcium 9.6 mg/dL (8.4-10.2); Carbon Dioxide 26 mmol/L (22-29); Chloride 106 mmol/L (96-108); Estimated Glomerular Filt Rate > 60; Glucose Random 85 mg/dL (60-115); Potassium 3.8 mmol/L (3.3-5.1); Sodium 141 mmol/L (135-145); Total Protein 7.6 g/dL (6.5-8.0)
== END 2025-04-16 09:54 | disposition home or self-care (01) ==
LOC: HO.HMGCLDS 09:53
PROVIDERS: PCP Internal Medicine; Visit Provider Nurse Practitioner
DX: R12 Heartburn (principal)
CPT/HCPCS: 36415; 80053

== ENCOUNTER 2025-05-05 09:47 | Outpatient (AMB) | payer MEDICAID, SELFPAY ==
[2025-05-05 10:11] VITALS: BP 108/64; PULSE 84; TEMP 36.9; O2SAT 98; BMI 29.8
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
--- OUTSIDE RECORDS SUMMARY | 2025-05-05 10:24 | XMS_ITS | Clinical Summary ---
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 [...] (2023-2 5 season) 2024 Influenza Vaccine (#1) 2025 HIB Vaccines Aged Out No longer [...] PM EDT Narrative 01/20/2021 4:33 PM EDT [facility] Diagnostic Imaging Department [address] [place], [place] [address] Patient: MARIANOERIBERTO /Age/Sex: 1970 - 50 - F Unit#: [id number] Location/Status: SPDIMAM/REG CLI Mnemonic/Ordering Site: [facility] Ordering Physician: YOSEPH MCCALL MANAGEMENT COORDINATOR Dorothy Screening Digital - 01/20/21 - 1514 INDICATION: SCREENING COMPARISON: [facility] and outside mammograms dating back to 08/02/2015 TECHNIQUE: CC and MLO views of the breasts were obtained, using full field digital mammography with 3D tomosynthesis views in the MLO projection. XCCL view of the right breast was obtained. Computer aided detection with the embraase 7.2-H was employed. FINDINGS: The breasts are [...] a target date for the next mammogram. [id number] / [id number]) , [id number] Dictating Physician: AURA DINERO MD Electronically Signed by: AURA DINERO MD Dic Date/Time: 01/20/21 1629 Sign date/Time: 01/20/21 1633 Procedure Note Aura Dinero MD - 10/17/2022 [facility] Diagnostic Imaging Department [address] [place] [address] Patient: ERIBERTO QUINTANA /Age/Sex: 1970 - 50 - F Unit#: [id number] Location/Status: SPDIMAM/REG CLI Mnemonic/Ordering Site: [facility] Ordering Physician: YOSEPH MCCALL NP Dorothy Screening Digital - 01/20/21 - 1514 INDICATION: SCREENING COMPARISON: [facility] and outside mammograms dating back to 08/02/2015 TECHNIQUE: CC and MLO views of the breasts were obtained, using full field digital mammography with 3D tomosynthesis views in the MLO projection. XCCL viewof the right breast was obtained. Computer aided detection with the embraase 7.2-H was employed. FINDINGS: The breasts are [...] a target date for the next mammogram. [id number] / [id number]) , [id number] Dictating Physician: AURA DINERO MD Electronically Signed by: AURA DINERO MD Dic Date/Time: 01/20/21 9801 Sign date/Time: 01/20/21 1631 us Yoseph Mccall NP IMG BI PROCEDURES Final Result * Pap smear (11/05/2020) 11/05/2020 Narrative HISTORICAL TESTING LAB RESULTING AGENCY - 11/10/2020 1:10 PM EST [id number] THINPREP PAP, IMAGED: NEGATIVE FOR SQUAMOUS INTRAEPITHELIAL [...]
== END 2025-05-05 10:56 | disposition home or self-care (01) ==
PROVIDERS: PCP Internal Medicine; Visit Provider Physician Assistant Medical
DX: M54.16 Radiculopathy, lumbar region (principal)

== ENCOUNTER → 2025-05-05 09:47 | Outpatient (BNVA) | payer MEDICAID, SELFPAY | PROVIDERS: PCP Internal Medicine; Visit Provider Physician Assistant Medical | DX: M54.16 Radiculopathy, lumbar region (principal) | CPT/HCPCS: 99212 ==

== ENCOUNTER 2025-05-14 19:52 | Emergency (ER) | payer MEDICAID, SELFPAY ==
--- NOTE | ~2025-05-14 | XR_ITS ---
CLINICAL HISTORY: pain after fall, down L leg Three views of the lumbar spine. Comparison 01/19/2023. Findings: No acute fractures are seen. There are lyzr-lq-qhmoaazc multilevel degenerative changes. There is minimal retrolisthesis of L5 on S1. Impression: No acute fracture is identified. This document has been electronically signed by: Sj De Los Santos MD on 05/14/2025 20:44:03
[2025-05-14 19:56] VITALS: BP 122/76; PULSE 93; RESP 16; TEMP 36.7; O2SAT 99; BMI 29.6
--- NOTE | 2025-05-14 20:01 | ED_ITS ---
HPI - General Adult General Chief complaint: Back Pain/Injury Stated complaint: back & leg pain; bodyaches Time Seen by Provider: 05/14/25 22:33 Source: patient Mode of arrival: ambulatory Limitations: language barrier (Assurance Auditor services utilized) History of Present Illness ED Provider: Delroy BRUNNER HPI narrative: The patient is a 54-year-old female presenting to the ED reporting since December of 2022 she has been on disability status due to chronic left low back pain due to recurrent heavy lifting at work. The patient denies surgical spinal history but has follow up with a chiropractor weekly since 2022. The patient reports 2 weeks ago she was trying to clean the freezer, while doing so she leaned to the side and fell backwards resulting in increased pain in her left low back radiating to the left buttocks and into the left leg. The patient reports the pain is unchanged in character but increased in severity compared to her baseline. The patient reports she has been taking ibuprofen and Tylenol, and applying icy hot cream without significant improvement. The patient denies associated fever/chills, bowel/bladder incontinence, urinary retention, saddle paresthesias, or lower extremity weakness. The patient reports pain is increased with standing for long periods of time, improves with sitting down. Related Data Home Medications ?Medication ?Instructions ?Recorded ?Confirmed fluticasone furoate 100 1 inh inhalation DAILY 07/0807/08/24 mcg/actuation blister powder for inhalation (Arnuity Ellipta) escitalopram oxalate 5 mg tablet 5 mg PO DAILY 5 hydroxyzine HCl 10 mg tablet 10 mg PO BID 02/27/25 Previous Rx's ?Medication ?Instructions ?Recorded cetirizine 10 mg tablet 10 mg PO DAILY #90 tabs 07/30 03/21 albuterol sulfate 90 mcg/actuation 1 inh inhalation QI D PRN shortness 11/03/24 aerosol inhaler (Ventolin HFA) of breath or wheezing # 8.5 grams omeprazole 40 mg capsule,delayed 40 mg PO DAILY 30 day s #30 caps 03/25/25 release cyclobenzaprine 5 mg tablet 5 mg PO Q8H PRN Muscle Spa sm 7 05/05/25 days #20 tabs meloxicam 15 mg tablet 15 mg PO DAILY #15 tabs 06/22 prednisone 20 mg tablet 40 mg (2 x 20 mg) PO DAILY 5 days 05/05/25 #10 tabs amlodipine 10 mg tablet 10 mg PO DAILY #90 tabs 04/28 04/22 acetaminophen 500 mg capsule 1,000 mg (2 x 500 mg) PO .q8 PRN 05/14/25 fever or pain #30 caps cyclobenzaprine 10 mg tablet 10 mg PO TID PRN muscle s pasm #14 05/14/25 tabs ibuprofen 600 mg tablet 600 mg PO Q8H PRN fever or p ain 05/14/25 #30 tabs prednisone 20 mg tablet 60 mg (3 x 20 mg) PO DAILY 5 days 05/14/25 #15 tabs Allergies Allergy/AdvReac Type Severity Reaction Status Date / Time naproxen (From NAPROSYN) AdvReac Unknown STOMACH Verified 05/14/25 20:01 UPSET Review of Systems Review of Systems: Yes all other systems are reviewed and are negative [facility] Past Medical History Medical History (Updated 05/14/25 @ 23:48 by Delroy Courtney PA-C) Cochlear implant in place Cystitis Chronic heartburn Essential hypertension COVID-19 vaccination declined Hx of dysfunctional uterine bleeding History of use of contraceptive intrauterine device (IUD) Mild intermittent asthma COVID-19 virus infection Nephrolithiasis Vitamin D deficiency Obesity (BMI 30-39.9) Hearing loss associated with syndrome of both ears Surgical History Hx of esophagogastroduodenoscopy History of cochlear implant Family History Family History Father Diabetes mellitus HTN (hypertension) Hyperlipidemia Mother HTN (hypertension) Hyperlipidemia Diabetes mellitus Social History Social History Housing: Apartment Patient Tobacco Use Status: Former Tobacco user Smoked in Last 30 Days: No e-Cigarette/Vaping Use: Never Used Use of substances other than those prescribed or required for medical reasons: No Advance Directives: No Advance Directives Information Provided: No Do you have a plan to hurt others: No Plan service: No Current occupational status: unemployed Cognitive needs: No Hearing needs: No Vision needs: No Physical Exam ED Vital Signs: Vital Signs - 24 hr 05/14/25 19:56 05/14/25 22:10 05/15/25 00:05 Temperature 98.1 F 97.8 F 97.8 F Pulse Rate 93 71 82 Respiratory Rate 16 16 16 Blood Pressure 122/76 130/83 132/91 H Pulse Oximetry 99 99 98 Oxygen Delivery Method Room Air Room Air Room Air BMI result Body Mass Index 29.6 CONSTITUTIONAL: The patient appears non-toxic, well nourished and in no acute distress. Vital signs as documented. HEAD: Atraumatic, normocephalic. EYES: EOMs grossly intact, pupils equal, conjunctiva clear, no exudate. ENT: Nares patent, no discharge. Airway patent, no audible stridor, visible mucosa is pink and moist without noted lesions. NECK: Trachea is midline, no obvious masses or gross abnormalities. CHEST: Symmetric movement, normal appearance. LUNGS: LS present and CTAB, no w/r/r. Non-labored work of breathing. CARDIAC: Regular Rhythm, S1/S2 appreciated, no murmurs, rubs or gallops. ABDOMEN: Abdomen soft and non-tender x4 quadrants, no palpable masses or organomegaly. : Deferred. BACK: There is no midline spinal tenderness of the cervical, thoracic, or lumbar spine, there is no tenderness to palpation of the left lumbar paraspinal area however patient does report increased pain in his area with movement. Left lower extremity shows distal CSM intact with 2+ DP/PT pulses and no pedal edema. EXTREMITIES: Normal tone, moves all extremities spontaneously without reported pain. No obvious acute injury or deformity noted. NEURO: Alert and oriented x3, CN II-XII appear grossly intact. Cerebellar Functioning grossly intact. No obvious sensory or motor deficits. Speech clear and appropriate. PSYCH: normal affect, appropriate eye contact, fluid speech, with appropriate response to questioning. No reported suicidality or homicidality. SKIN: Warm, dry, color appropriate, normal turgor. No rashes noted. Course Course Course Narrative: This is a rapid medical exam performed by Petra Amaral NP: Additional HPI, ROS, PE not included below will be deferred to primary provider. Patient is a 54y/o F with history of chronic back pain presenting with acute exacerbation for the past month. Pain radiates down L leg. Denies b/b incontinence, saddle anesthesia. Reports recent fall onto left side. Plan:xray Medications Administered Discontinued Medications Generic Name Dose Route Start Last Admin Trade Name Freq PRN Reason Stop Dose Admin Acetaminophen 975 mg 05/14/25 23:31 05/14/25 23:48 Acetaminophen 325 Mg Tablet PO 05/14/25 23:32 975 mg ONCE ONE Administration Cyclobenzaprine HCl 10 mg 05/14/25 23:31 05/14/25 23:49 Cyclobenzaprine Hcl 10 Mg Tablet PO 05/14/25 23:32 10 mg ONCE ONE Administration Ibuprofen 600 mg 05/14/25 23:31 05/14/25 23:48 Ibuprofen 600 Mg Tablet PO 05/14/25 23:32 600 mg ONCE ONE Administration Lidocaine 1 patch 05/14/25 23:31 05/14/25 23:49 Lidocaine 4 % Patch Adh..Patch TRANSDERMA 05/14/25 23:32 1 patch ONCE ONE Administration Protocol Prednisone 60 mg 05/14/25 23:31 05/14/25 23:48 Prednisone 20 Mg Tablet PO 05/14/25 23:32 60 mg ONCE ONE Administration Medical Decision Making Medical Decision Making MDM Narrative: 11:43 PM 05/14/2025 (Jeff BRUNNER): The patient is a 54-year-old female presenting to the ED for evaluation of acute exacerbation of chronic left low back pain after falling while cleaning the Fridge 2 weeks ago. The patient reports pain radiates through her left buttock into the left lower leg with associated tingling. The patient has been attempting ibuprofen and Tylenol, as well as icy hot cream without relief, however has not taken anything today. The patient's x-ray shows no evidence of acute fracture. The patient's exam shows no bony tenderness. The patient has no cauda equina symptoms, no fever, there is no indication for advanced imaging. The patient is likely suffering from acute exacerbation of chronic left sciatica, patient will be treated with ibuprofen, Tylenol, Flexeril, lidocaine patch, and a 5 day prednisone burst. Patient has been advised to follow up with PCP for continued management of her symptoms. Admission/Observation Consideration of admission/observation: Escalation of care including admission/observation considered Radiology Impression Discussion of test interpretation with radiology: I have reviewed the radiologist's reading. Radiologist Impression: CLINICAL HISTORY: pain after fall, down L leg Three views of the lumbar spine. Comparison 01/19/2023. Findings: No acute fractures are seen. There are goda-ie-qsdojpda multilevel degenerative changes. There is minimal retrolisthesis of L5 on S1. Impression: No acute fracture is identified. This document has been electronically signed by: Sj De Los Santos MD on 05/14/2025 20:44:03 Dictated By: Kurtis Liu MD Signed By: <Electronically signed by Kurtis Liu MD in OV> External Record Review External record reviewed: Outpatient record Prescription Management I considered prescription management with: Pain Medication Discharge Plan Discharge Clinical Impression: Lumbar radiculopathy Patient Disposition: Home, Self-Care Instructions: Sciatica (ED), Lumbar Radiculopathy (ED) Additional Instructions: Aminah por elegir el Departamento de Urgencias del [facility] M?dico [place] para st atenci?n m?dica hoy. Afortunadamente, st radiograf?a de hoy no muestra evidencia de ninguna fractura aguda a causa de st reciente ca?da. St presentaci?n y examen de hoy no indican ninguna compresi?n de st m?dula kendrick ni carmen?n otro proceso de emergencia que requiera intervenci?n quir?rgica, ingreso hospitalario u observaci?n continua en urgencias, y es seguro darle de solitario. Es probable que sufra de compresi?n de palomo ra?z nerviosa en la parte baja de la espalda izquierda, palomo afecci?n conocida saw radiculopat?a lumbar, a veces m?s com?nmente conocida saw ci?jeniffer. [place] prednisona diariamente seg?n lo prescrito jamari los pr?ximos 5 d?as. Debe mary dosis alternas (escalonadas) de ibuprofeno 600 mg y Tylenol 1000 mg cada 4 horas seg?n sea necesario para cualquier dolor adicional. Repose la berta lesionada y aplique hielo jamari 20 minutos cada hora. [place] parte de st plan de atenci?n, tambi?n le easton recetado un relajante muscular llamado Flexeril. [place] latrice medicamento solo para maximus o espasmos intensos que no se alivian con ibuprofeno ni Tylenol. Los relajantes musculares pueden conllevar un alto riesgo de adicci?n y abuso involuntario. [place] latrice medicamento solo seg?n las indicaciones y solo si es absolutamente necesario. Latrice medicamento puede causar somnolencia; no se le permite conducir, operar maquinaria pesada ni ser el ?jonathan cuidador de ni?os mientras lo est? tomando. Le hemos tratado con un parche de lidoca?na; si nota un alivio significativo, puede comprar parches adicionales en cualquier farmacia local sin receta. Consulte con st m?dico de cabecera para palomo reevaluaci?n, un tratamiento adicional de mana s?ntomas y atenci?n preventiva continua. Si no tiene un m?dico de cabecera, llame a [facility] al [phone] para asignarle un nuevo m?dico de cabecera. Mientras espera a que le asignen un nuevo m?dico de cabecera, puede llamar a nuestra Cl?michelle de [place]tenci?n [place] Mary[place] [facility] al [phone] para necesidades que no erendira de emergencia. Regrese al departamento de emergencias si desarrolla un cambio sandeep o repentino en mana s?ntomas, fiebre de m?s de 100.4 que no mejora con Tylenol o ibuprofeno, v?mitos recurrentes o cualquier otro s?ntoma o inquietud nuevo o que empeore. Thank you for choosing [facility]'s Emergency Department for your care today. Thankfully your x-ray today shows no evidence of any acute fracture from your recent fall. Your presentation and exam today are not concerning for any compression of your spinal cord or other emergent process requiring surgical intervention, admission to the hospital, or continued ED observation, and it is safe to discharge you home. Your likely suffering from compression of a nerve root on your left low back, a condition known as lumbar radiculopathy, sometimes more commonly known as sciatica. Please take prednisone daily as prescribed for the next 5 days. You should take alternating (staggered) doses of ibuprofen 600mg and Tylenol 1000mg every 4 hours as needed for any additional pain. Please rest the injured area, and apply ice for 20 minutes every hour. As a part of your care plan, you have also been prescribed a muscle relaxer called Flexeril. Please take this medication only for severe pain or spasm that is not relieved by ibuprofen and/or Tylenol. Muscle relaxer medications can carry high risk of unintentional addiction and abuse. Take this medication only as directed and only if absolutely necessary. This medicine can make you drowsy, you are not allowed to drive, operate heavy machinery, or be the sole care provider for children while taking this medication. We have treated you with a lidocaine patch, if you find this provides you significant relief additional patches can be purchased at any local pharmacy without a prescription. Please follow up with your primary care physician for re-evaluation, additional management of your symptoms, and continued preventative care. If you do not have a primary care physician, please call the [facility] at [phone] to establish a new primary care physician. While waiting to establish your new primary care physician, you can call our Walk-in Care [facility] at [phone] for non-emergency needs. Please return to the emergency department if you develop a severe or sudden change in your symptoms, a fever over 100.4 that does not improve with Tylenol or Ibuprofen, recurrent vomiting, or any other new or worsening symptoms or concerns. Prescriptions: New prednisone 20 mg tablet 60 mg PO DAILY 5 Days Qty: 15 0RF ibuprofen 600 mg tablet 600 mg PO Q8H PRN (Reason: fever or pain) Qty: 30 0RF acetaminophen 500 mg capsule 1,000 mg PO .q8 PRN (Reason: fever or pain) Qty: 30 0RF cyclobenzaprine 10 mg tablet 10 mg PO TID PRN (Reason: muscle spasm) Qty: 14 0RF No Action cetirizine 10 mg tablet 10 mg PO DAILY Qty: 90 1RF amlodipine 10 mg tablet 10 mg PO DAILY Qty: 90 1RF Arnuity Ellipta 100 mcg/actuation blister with device 1 inh inhalation DAILY escitalopram oxalate 5 mg tablet 5 mg PO DAILY hydroxyzine HCl 10 mg tablet 10 mg PO BID meloxicam 15 mg tablet 15 mg PO DAILY Qty: 15 0RF prednisone 20 mg tablet 40 mg PO DAILY 5 Days Qty: 10 0RF cyclobenzaprine 5 mg tablet 5 mg PO Q8H PRN (Reason: Muscle Spasm) 7 Days Qty: 20 0RF Rx Instructions: Take 1-2 tablets every 8 hours as needed for muscle spasms albuterol sulfate [Ventolin HFA] 90 mcg/actuation HFA aerosol inhaler 1 inh inhalation QID PRN (Reason: shortness of breath or wheezing) Qty: 8.5 1RF omeprazole 40 mg capsule,delayed release(DR/EC) 40 mg PO DAILY 30 Days Qty: 30 6RF Interventions: ED Discharge Assessment Last Done: 05/15/25 00:05 Print Language: Belarusian
[2025-05-14 22:10] VITALS: BP 130/83; PULSE 71; RESP 16; TEMP 36.6; O2SAT 99
[2025-05-14] MEDS: Lidocaine 4 % Patch ADH..PATCH 1 PATCH TRANSDERMA (23:49)
[2025-05-15 00:05] VITALS: BP 132/91; PULSE 82; RESP 16; TEMP 36.6; O2SAT 98
== END 2025-05-15 00:05 | disposition home or self-care (01) ==
PROVIDERS: Emergency Provider Emergency Medicine
DX: M54.16 Radiculopathy, lumbar region (principal); M54.50 Low back pain, unspecified; M79.10 Myalgia, unspecified site; Z79.899 Other long term (current) drug therapy; Z87.891 Personal history of nicotine dependence
CPT/HCPCS: 72100; 99283; 99284

== ENCOUNTER → 2025-05-14 20:02 | Outpatient (BNV) | payer MEDICAID, SELFPAY | PROVIDERS: Visit Provider Radiology Diagnostic Radiology | DX: M54.50 Low back pain, unspecified (principal); M79.605 Pain in left leg; W19.XXXA Unspecified fall, initial encounter | CPT/HCPCS: 72100 ==

== ENCOUNTER 2025-05-15 09:27 | Outpatient (REF) | payer MEDICAID, SELFPAY ==
--- NOTE | ~2025-05-15 | US_ITS ---
CLINICAL HISTORY: R12 - Heartburn US abdomen complete Comparison: None provided Findings: The visualized pancreas is normal. Pancreatic tail is not seen due to bowel gas. The visualized aorta and inferior vena cava are normal caliber. The liver is normal in size. Diffusely increased echogenicity of the liver parenchyma, no focal lesion is visualized. No intrahepatic bile duct dilatation. The common duct is top-normal in diameter, 6 mm. The gallbladder is normal. Negative sonographic Paris sign. The main portal vein is patent with antegrade flow. The bilateral kidneys demonstrate simple intrarenal cysts 1.3 cm in the right lower pole and 0.8 cm in the left lower pole, otherwise normal, right kidney measures 10.3 cm in length, left kidney 11.0 cm in length. The spleen is normal, 8.9 cm in length. No free fluid in the abdomen. Impression: 1. Echogenic liver parenchyma, non-specific, most commonly seen in the setting of steatosis or chronic hepatitis. 2. Bilateral renal benign cysts, no imaging follow-up is needed. This document has been electronically signed by: Rosa M Lancaster MD on 05/15/2025 13:39:58
--- OUTSIDE RECORDS SUMMARY | 2025-05-15 09:33 | XMS_ITS | Clinical Summary ---
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 [...] PM EDT Narrative 01/20/2021 4:33 PM EDT [facility] Diagnostic Imaging Department [address] [place], [place] [id number] Patient: MARIANOERIBERTO /Age/Sex: 1970 - 50 - F Unit#: [id number] Location/Status: SPDIMAM/REG CLI Mnemonic/Ordering Site: [facility] Ordering Physician: YOSEPH MCCALL RESIN PAINTER Dorothy Screening Digital - 01/20/21 - 1514 INDICATION: SCREENING COMPARISON: [facility] and outside mammograms dating back to 08/02/2015 TECHNIQUE: CC and MLO views of the breasts were obtained, using full field digital mammography with 3D tomosynthesis views in the MLO projection. XCCL view of the right breast was obtained. Computer aided detection with the [employer] 7.2-H was employed. FINDINGS: The breasts are [...] a target date for the next mammogram. [id number] / [id number]) , [id number] Dictating Physician: AURA DINERO MD Electronically Signed by: AURA DINERO MD Dic Date/Time: 01/20/21 1629 Sign date/Time: 01/20/21 1633 Procedure Note Aura Dinero MD - 10/17/2022 [facility] Diagnostic Imaging Department [address] [place] [address] Patient: ERIBERTO QUINTANA /Age/Sex: 1970 - 50 - F Unit#: [id number] Location/Status: SPDIMAM/REG CLI Mnemonic/Ordering Site: [facility] Ordering Physician: YOSEPH MCCALL NP Dorothy Screening Digital - 01/20/21 - 1514 INDICATION: SCREENING COMPARISON: [facility] and outside mammograms dating back to 08/02/2015 TECHNIQUE: CC and MLO views of the breasts were obtained, using full field digital mammography with 3D tomosynthesis views in the MLO projection. XCCL viewof the right breast was obtained. Computer aided detection with the [employer] 7.2-H was employed. FINDINGS: The breasts are [...] a target date for the next mammogram. [id number] / [id number]) , [id number] Dictating Physician: AURA DINERO MD Electronically Signed by: AURA DINERO MD Dic Date/Time: 01/20/21 7161 Sign date/Time: 01/20/21 1631 us Yoseph Mccall NP IMG BI PROCEDURES Final Result * Pap smear (11/05/2020) 11/05/2020 Narrative HISTORICAL TESTING LAB RESULTING AGENCY - 11/10/2020 1:10 PM EST [id number] THINPREP PAP, IMAGED: NEGATIVE FOR SQUAMOUS INTRAEPITHELIAL [...]
== END 2025-05-15 09:28 | disposition home or self-care (01) ==
LOC: HO.US 09:27
PROVIDERS: PCP Internal Medicine; Visit Provider Nurse Practitioner
DX: R10.10 Upper abdominal pain, unspecified (principal); R12 Heartburn
CPT/HCPCS: 76700

== ENCOUNTER → 2025-05-15 09:29 | Outpatient (BNV) | payer MEDICAID, SELFPAY | PROVIDERS: PCP Internal Medicine; Visit Provider Radiology Diagnostic Radiology | DX: R12 Heartburn (principal) | CPT/HCPCS: 76700 ==

== ENCOUNTER 2025-05-20 10:21 | Outpatient (AMB) | payer MEDICAID, SELFPAY ==
--- NOTE | 2025-05-20 10:29 | MHC.OFFVIS ---
Vital Signs 05/20/25 10:32 Height 5 ft 3 in Weight 171 lb 1.259 oz BMI 30.3 BP 113/19 L Blood Pressure Location Lt brachial Position Sitting Intake Visit Reasons: 6 wks f/u Intake Note: Lita returns in follow up of US and labs. CC: Patient doing well, denies having any GI symptoms today. Skimmer Reverberatory Required: Yes Allergies naproxen (From NAPROSYN) Adverse Reaction (Unknown, Verified 05/20/25 10:35) STOMACH UPSET HPI HPI 6 wks f/u: Details: Assessment & Plan (1) Chronic heartburn: Code(s): R12 - Heartburn Category: Medical (2) Obesity (BMI 30-39.9): Code(s): E66.9 - Obesity, unspecified Category: Medical Plan Georgian #Chelsi Live She has had HB for many years. She had an EGD and a colonoscopy at [facility], but they had no certified executive chef so she did not understand what the results were. I will try to get the records. She used to be on 40mg omeprazole for many years via [facility], but her PCP changed it to 20mg and this is not helping her. I will get a barium swallow and US to see if there is any esophageal or GB pathology as a c/f, she had a negative biopsy for the same reason in 2021 for HP. She is aware of all the GERD triggers she should avoid and of the lifestyle and diet modifications. ROV 6 weeks. Orders: Orders US abdomen complete Today R12 - Heartburn [place] barium swallow Today R12 - Heartburn Comprehensive Met. Panel Today R12 - Heartburn Medications: New omeprazole 40 mg PO DAILY 30 caps 6RF 30 days R12 - Heartburn Discontinued omeprazole Discontinued Reason: Doctor's Order 20 mg PO DAILY 30 days 90 caps 0RF LABS Laboratory Tests 04/16/25 10:20 Estimated GFR > 60 Total Bilirubin 0.8 AST 28 ALT 30 Alkaline Phosphatase 96 US ABD 05/15/2025 Findings: The visualized pancreas is normal. Pancreatic tail is not seen due to bowel gas. The visualized aorta and inferior vena cava are normal caliber. The liver is normal in size. Diffusely increased echogenicity of the liver parenchyma, no focal lesion is visualized. No intrahepatic bile duct dilatation. The common duct is top-normal in diameter, 6 mm. The gallbladder is normal. Negative sonographic Paris sign. The main portal vein is patent with antegrade flow. The bilateral kidneys demonstrate simple intrarenal cysts 1.3 cm in the right lower pole and 0.8 cm in the left lower pole, otherwise normal, right kidney measures 10.3 cm in length, left kidney 11.0 cm in length. The spleen is normal, 8.9 cm in length. No free fluid in the abdomen. Impression: 1. Echogenic liver parenchyma, non-specific, most commonly seen in the setting of steatosis or chronic hepatitis. 2. Bilateral renal benign cysts, no imaging follow-up is needed. BARIUM SWALLOW 04/01/2025 FINDINGS: Following oral administration of thick barium there is normal propagation bolus from the oral cavity through the pharynx, esophagus into stomach without any evidence of obstruction, narrowing or stricture. No laryngeal penetration or aspiration seen On oral administration of and barium coated saltine crackers there is normal mastication normal propagation of solid food from the oral cavity, pharynx and esophagus. Thin barium as bolus roderick was administered to posterior of solid food into the stomach. On placing patient prone lying and oral administration of thin barium there is normal propagation bolus from oral cavity, pharynx, esophagus into stomach. Incidental finding of a small hiatal hernia with mild gastroesophageal reflux. TODAYS VISIT Georgian #CHELSI Live She is having trouble remembering to taek her o2o before he coffee and this causes some am HB. However, with the increase of her o2o dose to 40 mg, she is doing much better. She will be having surgery soon for a hearing implant as she is [place]. ROV 6 mos. [facility] Medical History (Updated 05/14/25 @ 23:48 by Delroy Courtney PA-C) Cochlear implant in place Cystitis Chronic heartburn Essential hypertension COVID-19 vaccination declined Hx of dysfunctional uterine bleeding History of use of contraceptive intrauterine device (IUD) Mild intermittent asthma COVID-19 virus infection Nephrolithiasis Vitamin D deficiency Obesity (BMI 30-39.9) Hearing loss associated with syndrome of both ears Surgical History Hx of esophagogastroduodenoscopy History of cochlear implant Family History Father Diabetes mellitus HTN (hypertension) Hyperlipidemia Mother HTN (hypertension) Hyperlipidemia Diabetes mellitus Social History Housing: Apartment Patient Tobacco Use Status: Former Tobacco user e-Cigarette/Vaping Use: Never Used service: No Current occupational status: unemployed Cognitive needs: No Hearing needs: No Vision needs: No Review of Systems Const Reports fatigue (On muscle relaxers in his groggy), Denies fever(s), Denies night sweats, Denies poor appetite and Denies weight loss ENT Denies Normal hearing present, Denies dysphagia, Denies odynophagia, Denies throat swelling and Denies tongue swelling Card Reports no additional complaints Resp Reports no additional complaints GI Details: Denies abdominal pain, Denies melena, Denies bloating, Denies hematochezia, Denies constipation, Denies GI cramping, Denies dysphagia, Denies excessive flatus, Denies early satiety, Reports heartburn, Denies diarrhea, Denies nausea, Denies odynophagia, Denies vomiting and Denies hematemesis Musc Reports back pain Skin/Breast Denies pruritus, Denies lesions, Denies rash and Denies jaundice Neuro Denies Normal hearing present and Denies Abnormal speech present Endo Reports fatigue (On muscle relaxers in his groggy) Aller/Immun Denies throat swelling and Denies tongue swelling Physical Exam Vital Signs: Last Vital Signs BP 113/19 L 05/20/25 10:32 BMI result Body Mass Index 30.3 Const General: cooperative, no acute distress, well developed and well groomed Nutritional Appearance: well nourished and overweight Orientation/consciousness: oriented to person, oriented to place and oriented to time Limitations: language barrier and ambulation with cane HEENT Head: Yes normocephalic and Yes atraumatic Ears: hearing grossly impaired Eyes General: appearance normal, both eyes and all related structures Pupils: Equal, round and reactive pupils present Neck Neck: Yes normal visual inspection and Yes no lymphadenopathy Thyroid: Thyroid normal Resp Effort & Inspection: normal respiratory effort and able to speak in complete sentences Auscultation: clear to auscultation bilaterally Cardio Rate: regular rate Rhythm: regular rhythm Heart sounds: Normal, physiologic split S2 sound present Peripheral pulses: radial pulses present and posterior tibial pulses present GI Inspection: No distended, No Abdominal panniculus present and Yes obesity Palpation (GI): Soft to palpation, nontender, no guarding, not rigid and No hepatosplenomegaly present Percussion: Yes normal to percussion Auscultation: normal bowel sounds Rectal Exam - Female: deferred Skin General skin exam: no rashes or lesions noted, turgor normal, skin not dry, no jaundice, No spider nevi and no striae Rashes: no rashes Nails: normal Neuro General: oriented to person, oriented to place and oriented to time Cranial nerves: Yes Equal, round and reactive pupils present and No Normal hearing present Speech: No Abnormal speech present Extrem General: Yes normal to inspection, No clubbing, No cyanosis and No edema Psych Appearance: grossly normal and well kempt Mental Status: mental status grossly normal Speech and movement: Normal speech and movement present Affect: normal affect Attitude: cooperative Thought process: Normal thought process present and not confabulating Thought content: Normal thought content present Insight: Good insight present (Psych) Judgement: Good judgement present (Psych) Assessment & Plan Assessment & Plan (1) Chronic heartburn: Code(s): R12 - Heartburn Category: Medical Plan [place] #CHELSI Live She is having trouble remembering to taek her o2o before he coffee and this causes some am HB. However, with the increase of her o2o dose to 40 mg, she is doing much better. She will be having surgery soon for a hearing implant as she is [place]. ROV 6 mos. Coding Level of Care Code Est Pt Level 3 (41637) Diagnoses Chronic heartburn R12
[2025-05-20 10:32] VITALS: BP 113/19; BMI 30.3
--- OUTSIDE RECORDS SUMMARY | 2025-05-20 11:25 | XMS_ITS | Clinical Summary ---
Author Organization Rank By Search [facility] Address [address] [place] [address] Care Team Providers Care Hris Manager Name Role Phone Unavailable Primary Care Provider Unavailabl e Surgical History Surgery Date Site/Laterality Comments SECTION PROCEDURE: HISTORICAL DELIVERY TUBAL LIGATION 1998 PROCEDURE: HISTORICAL TUBAL LIGATION; COMMENT: Helen OTHER SURGICAL HISTORY Right PROCEDURE: GA COCHLEAR DEVICE IMPLANTATION W/WO MASTOIDECTOMY; COMMENT: Dr. [...] 2) 2021 Colorectal Cancer Screening: Colonoscopy 09/27/2022 HIV Screening 09/27/2022 Hepatitis C Screening 09/27/2022 Social Influencers of Health Screening 09/27/2022 Breast Cancer Screening 01/20/2023 01/21/20 21, 06/23/2019 Cervical Cancer Screening: P ap Smear 11/05/2023 11/05/2020 COVID-19 Vaccine (2023-2 5 season) 2024 Depression Screening 10/29/2024 Influenza Vaccine (#1) 2025 HIB Vaccines Aged [...] PM EDT Narrative 01/20/2021 4:33 PM EDT [facility] Diagnostic Imaging Department [address] [place], [place] [id number] Patient: MARIANOERIBERTO /Age/Sex: 1970 - 50 - F Unit#: [id number] Location/Status: SPDIMAM/REG CLI Mnemonic/Ordering Site: [facility] Ordering Physician: YOSEPH MCCALL RULES EXAMINER Dorothy Screening Digital - 01/20/21 - 1514 INDICATION: SCREENING COMPARISON: [facility] and outside mammograms dating back to 08/02/2015 TECHNIQUE: CC and MLO views of the breasts were obtained, using full field digital mammography with 3D tomosynthesis views in the MLO projection. XCCL view of the right breast was obtained. Computer aided detection with the Symwave 7.2-H was employed. FINDINGS: The breasts are [...] a target date for the next mammogram. [id number] / [id number]) , [id number] Dictating Physician: AURA DINERO MD Electronically Signed by: AURA DINERO MD Dic Date/Time: 01/20/21 1629 Sign date/Time: 01/20/21 1633 Procedure Note Aura Dinero MD - 10/17/2022 [facility] Diagnostic Imaging Department [address] [place] [id number] Patient: ERIBERTO QUINTANA /Age/Sex: 1970 - 50 - F Unit#: [id number] Location/Status: SPDIMAM/REG CLI Mnemonic/Ordering Site: [facility] Ordering Physician: YOSEPH MCCALL NP Dorothy Screening Digital - 01/20/21 - 1514 INDICATION: SCREENING COMPARISON: [facility] and outside mammograms dating back to 08/02/2015 TECHNIQUE: CC and MLO views of the breasts were obtained, using full field digital mammography with 3D tomosynthesis views in the MLO projection. XCCL viewof the right breast was obtained. Computer aided detection with the Symwave 7.2-H was employed. FINDINGS: The breasts are [...] a target date for the next mammogram. [id number] / [id number]) , [id number] Dictating Physician: AURA DINERO MD Electronically Signed by: AURA DINERO MD Dic Date/Time: 01/20/21 1490 Sign date/Time: 01/20/21 1639 us Yoseph Mccall NP IMG BI PROCEDURES Final Result * Pap smear (11/05/2020) 11/05/2020 Narrative HISTORICAL TESTING LAB RESULTING AGENCY - 11/10/2020 1:10 PM EST [id number] THINPREP PAP, IMAGED: NEGATIVE FOR SQUAMOUS INTRAEPITHELIAL [...]
== END 2025-05-20 11:08 | disposition home or self-care (01) ==
LOC: HO.HGI 10:21
PROVIDERS: PCP Internal Medicine; Visit Provider Nurse Practitioner
DX: R12 Heartburn (principal)
CPT/HCPCS: 99213

== ENCOUNTER → 2025-05-20 10:21 | Outpatient (BNVA) | payer MEDICAID, SELFPAY | PROVIDERS: PCP Internal Medicine; Visit Provider Nurse Practitioner | DX: R12 Heartburn (principal) | CPT/HCPCS: 99212 ==

== ENCOUNTER 2025-06-16 09:33 | Outpatient (REF) | payer MEDICAID, SELFPAY ==
[2025-06-16 13:28] LABS: Hematocrit 39.2 % (37.0-47.0); Hemoglobin 12.9 g/dl (12.0-16.0)
[2025-06-16 13:52] LABS: Alanine Aminotransferase 26 U/L (0-31); Anion Gap 13 (12-20); Aspartate Amino Transferase 27 U/L (5-31); Blood Urea Nitrogen 11 mg/dL (9-16); Calcium 9.3 mg/dL (8.4-10.2); Carbon Dioxide 24 mmol/L (22-29); Chloride 108 mmol/L (96-108); Cholesterol 195 mg/dL (<200); Estimated Glomerular Filt Rate > 60; HDL Cholesterol 53 mg/dL (>40); Potassium 3.9 mmol/L (3.3-5.1); Sodium 141 mmol/L (135-145); Triglycerides 83 mg/dL (<150)
== END 2025-06-16 09:34 | disposition home or self-care (01) ==
LOC: HO.HMGCLDS 09:33
PROVIDERS: PCP Internal Medicine; Visit Provider Internal Medicine
DX: Z00.01 Encounter for general adult medical examination with abnormal findings (principal); J45.20 Mild intermittent asthma, uncomplicated; R12 Heartburn; H91.93 Unspecified hearing loss, bilateral; E55.9 Vitamin D deficiency, unspecified; E66.9 Obesity, unspecified; Z68.30 Body mass index [BMI] 30.0-30.9, adult; F41.8 Other specified anxiety disorders; I10 Essential (primary) hypertension; M51.369 Other intervertebral disc degeneration, lumbar region without mention of lumbar back pain or lower extremity pain; Z87.891 Personal history of nicotine dependence; Z71.3 Dietary counseling and surveillance; Z71.89 Other specified counseling
CPT/HCPCS: 36415; 80048; 80061; 82306; 84450; 84460; 85014; 85018; 96127; 99396

== ENCOUNTER 2025-06-16 09:33 | Outpatient (AMB) | payer MEDICAID, SELFPAY ==
[2025-06-16 10:01] VITALS: BP 120/90; PULSE 86; RESP 16; TEMP 37; O2SAT 97; BMI 30.5
--- NOTE | 2025-06-16 10:01 | MHC.PC.OV ---
Vital Signs 06/16/25 10:01 Height 5 ft 3 in Weight 172 lb BMI 30.5 BP 120/90 H Blood Pressure Location Lt brachial Position Sitting Respiration 16 Pulse 86 Pulse Source Pulse Oximeter Temp 98.6 F Temp Source Oral Pulse Oximetry (%) 97 Oxygen Delivery Method Room Air Intake Visit Reasons: Annual PE Intake Note: Pt is here today for her PE: Last mammogram 02/20/24 Associate Professor Of Counseling Required: Yes Associate Professor Of Counseling Name: Nikhil ID [id number] Information Interpreted: clinical only Forging Die Sinker: Present Accompanied by: Spouse Allergies naproxen (From NAPROSYN) Adverse Reaction (Unknown, Verified 06/16/25 10:24) STOMACH UPSET Medication List - Last Reconciled 06/16/25 by Savanna Kramer MD acetaminophen 1,000 mg (2 x 500 mg) PO .q8 PRN albuterol sulfate 90 mcg/actuation (Ventolin HFA) 1 inh inhalation QID PRN amlodipine 10 mg PO DAILY cetirizine 10 mg PO DAILY cyclobenzaprine 10 mg PO TID PRN escitalopram oxalate 5 mg PO DAILY fluticasone furoate 100 mcg/actuation (Arnuity Ellipta) 1 inh inhalation DAILY hydroxyzine HCl 10 mg PO BID omeprazole 40 mg PO DAILY 30 days Tobacco use date assessed: 06/16/25 Dental Screening Dental Screen Date: 06/16/25 Did you have a dental visit in the last 12 months?: Yes Did you have a dental problem in the last 6 months where you did not have access to dental care?: No Was dental information given to patient?: Patient has dentist HPI Annual PE HPI Details 55 year old lady with history of hypertension, mild intermittent asthma, obesity, hearing loss with cochlear implant placed, here today for her physical exam. - Cochlear implant was performed on the right ear on May [address] Riojas, and the patient reports gradual improvement in hearing. - The patient is being treated for depression and anxiety with escitalopram and hydroxyzine, prescribed by her psychiatrist at [facility]. - Asthma is controlled with Arnuity Ellipta and Ventolin inhaler as needed for episodes of bronchospasm - The patient has a history of vitamin D deficiency, with low levels noted last year, and she is advised to take vitamin D3 supplements. - Has recurrent back pain, is currently seeing a chiropractor for management, following a recommendation from a previous pain management provider. - Preventative care measures include scheduling a mammogram, Pap smear, and colonoscopy, with the last mammogram done in March of the previous year. [facility] Medical History (Updated 06/16/25 @ 11:03 by Savanna Kramer MD) Depression with anxiety Cochlear implant in place Cystitis Chronic heartburn Essential hypertension COVID-19 vaccination declined Hx of dysfunctional uterine bleeding History of use of contraceptive intrauterine device (IUD) Mild intermittent asthma COVID-19 virus infection Nephrolithiasis Vitamin D deficiency Obesity (BMI 30-39.9) Hearing loss associated with syndrome of both ears Surgical History Hx of esophagogastroduodenoscopy History of cochlear implant Family History Father Diabetes mellitus HTN (hypertension) Hyperlipidemia Mother HTN (hypertension) Hyperlipidemia Diabetes mellitus Social History Housing: Apartment Patient Tobacco Use Status: Former Tobacco user e-Cigarette/Vaping Use: Never Used service: No Current occupational status: unemployed Cognitive needs: No Hearing needs: Yes Vision needs: Yes Questionnaire PHQ-9 Over the last 2 weeks, how often have you been bothered by any of the following problems? 1. Little interest or pleasure in doing things: several days 2. Feeling down, depressed, or hopeless: several days 3. Trouble falling or staying asleep, or sleeping too much: several days 4. Feeling tired or having little energy: several days 5. Poor appetite or overeating: more than half the days 6. Feeling bad about yourself - or that you are a failure or have let yourself or your family down: not at all 7. Trouble concentrating on things, such as reading the newspaper or watching television: several days 8. Moving or speaking so slowly that other people could have noticed. Or the opposite - being so fidgety or restless that you have been moving around a lot more than usual: several days 9. Thoughts that you would be better off or of hurting yourself in some way: not at all Total score: 8 Depression Screening Interpretation: Positive (Currently sees psychiatrist at therapist at [facility]) Depression Screening Follow-up: Existing condition, In treatment and Community Mental Health Worker F/U Depression Screening Done: Yes 54093 - PHQ-9 Billing: Yes Source: Developed by Drs. Stephen Munoz, Pollo Howard and colleagues, with an educational nancy from [employer]. Thrive Questionnaire Date Thrive assessed: 06/16/25 I am a: Patient What is your living situation today?: I have a steady place to live Within the past 12 months, did the food you bought not last and you didn't have the money to get more?: Often true Within the past 12 months, did you worry whether your food would run out before you got money to buy more?: Sometimes True Do you have trouble paying for medicines?: No Do you have trouble getting transportation to medical appointments?: No Do you have trouble paying your heating and electricity bill?: No Do you have trouble taking care of your child, family member or friend?: No Do you have trouble with day-to-day activities such as bathing, preparing meals, shopping, managing finances, etc.?: Yes Are you currently unemployed and looking for a job?: Yes Are you interested in more education?: No Please select the resources that you would like help with: None Currently or been in a relationship where the following occur: No concerns reported THRIVE Score: 2 AUDIT C Alcohol Use Questionnaire (AUDIT-C) 1. How often do you have a drink containing alcohol?: Never Total Score: 0 Score Reviewed/Action Taken: Yes ANNE MARIE-7 AMB Questionnaire ANNE MARIE-7 Date ANNE MARIE - 7 assessed: 12/22/24 Source: Developed by Drs. Stephen Munoz, Pollo Howard and colleagues, with an educational nancy from [employer]. ACT Questionnaire In the past 4 weeks, how much of the time did your asthma keep you from getting as much done at work, school or at home?: None of the time During the past 4 weeks, how often have you had shortness of breath?: Not at all During the past 4 weeks, how often did your asthma symptoms wake you up at night or earlier than usual in the morning?: Not at all During the past 4 weeks, how often have you had to use your rescue inhaler or nebulizer medication?: Not at all How would you rate your asthma control during the past 4 weeks?: Well controlled Score: 24 Review of Systems Const Reports daytime sleepiness (likely due to taking cyclobenzaprine at bedtime ), Denies fatigue, Denies headache(s) and Denies weakness Eyes Denies change in vision ENT Denies dizziness and Denies headache(s) Card Denies chest pain, Denies lightheadedness, Denies palpitations and Denies dyspnea Resp Denies cough and Denies dyspnea GI Denies abdominal pain, Denies change in bowel habits and Denies heartburn Denies urinary frequency, Denies dysuria and Denies urinary urgency Musc Reports as per HPI Skin/Breast Denies breast pain, Denies breast mass, Denies lesions and Denies rash Neuro Denies dizziness, Denies headache(s) and Denies weakness Psych Reports as per HPI Endo Denies fatigue, Denies polydipsia, Denies polyuria and Denies palpitations Silvio/Lymph Denies easy bruising Aller/Immun Denies seasonal rhinorrhea Physical exam (Primary Care) Vital Signs: Last Vital Signs Temp 98.6 F 06/16/25 10:01 Pulse 86 06/16/25 10:01 Resp 16 06/16/25 10:01 BP 120/90 H 06/16/25 10:01 Pulse Ox 97 06/16/25 10:01 Oxygen Delivery Method Room Air 06/16/25 10:01 BMI result Body Mass Index 30.5 Tobacco/Smoking Status: Tobacco use Status Tobacco use date assessed 06/16/25 06/16/25 10:02 Patient Tobacco Use Status Former Tobacco user 06/16/25 10:02 e-Cigarette/Vaping Use Never Used 06/16/25 10:02 PHQ-9: PHQ-9 Score PHQ-9: Total score 8 06/17/25 08:21 Depression Screening Interpretation: Positive (Currently sees psychiatrist at therapist at [facility]) Depression Screening Follow-up: Existing condition, In treatment and Community Mental Health Worker F/U Thrive Assessment: Date of Thrive Assessment Date Thrive assessed 06/16/25 06/16/25 10:02 Currently or been in a relationship where the following occur: No concerns reported Advance Care Planning discussion: Completed/Scanned Date of discussion: 06/16/25 Who was present: Patient Forms completed: Health Care Proxy Time spent: 16-45 minutes Actual minutes spent: 1 Const General: no acute distress Nutritional Appearance: obese Orientation/consciousness: patient oriented x3 Neck Neck: Yes full ROM and Yes no lymphadenopathy Thyroid: Thyroid normal Resp Auscultation: clear to auscultation bilaterally Cardio Other: S1-S2 present regular rate and rhythm GI Inspection: Yes obesity Palpation (GI): Soft to palpation, nontender, no guarding and no masses Auscultation: normal bowel sounds Back/Spine/Pelvis Back: back tenderness (Lumbosacral area, negative straight leg raising sign) Skin General skin exam: no rashes or lesions noted Neuro General: patient oriented x3, moves all extremities and no focal motor deficits Extrem General: Yes full ROM, Yes no joint enlargement, Yes no clubbing, cyanosis or edema and Yes normal gait Psych Appearance: grossly normal and well kempt Mental Status: mental status grossly normal Affect: normal affect Coding Level of Care Code Est Pt Prev Care 40-64y(43729) Diagnoses Annual visit for general adult medical examination with abnormal findings Z00. Lumbar degenerative disc disease M51.36 Mild intermittent asthma without complication J45.20 Asthma complication type: uncomplicated Chronic heartburn R12 Hearing loss associated with syndrome of both ears H91.93 Vitamin D deficiency E55.9 Obesity (BMI 30-39.9) E66.9 Essential hypertension I10 Depression with anxiety F41.8 Advance directive discussed with patient Z71.89 Additional Codes PHQ-9 - 88533 - PHQ-9 Billing: Yes ([id number]) Vital Signs *Quality* - Advance Care Planning discussion: Completed/Scanned ([id number]) Vital Signs *Quality* - Time spent: 16-45 minutes ([id number]) Assessment & Plan Assessment & Plan (1) Annual visit for general adult medical examination with abnormal findings: Code(s): Z00.01 - Encounter for general adult medical examination with abnormal findings (2) Lumbar degenerative disc disease: Code(s): M51.36 - Other intervertebral disc degeneration, lumbar region Category: Medical Plan: Currently sees chiropractor (3) Mild intermittent asthma: Code(s): J45.20 - Mild intermittent asthma, uncomplicated Category: Medical Qualifiers: Asthma complication type: uncomplicated Qualified Code(s): J45.20 - Mild intermittent asthma, uncomplicated (4) Chronic heartburn: Code(s): R12 - Heartburn Category: Medical (5) Hearing loss associated with syndrome of both ears: Code(s): H91.93 - Unspecified hearing loss, bilateral Category: Medical (6) Vitamin D deficiency: Code(s): E55.9 - Vitamin D deficiency, unspecified Category: Medical (7) Obesity (BMI 30-39.9): Code(s): E66.9 - Obesity, unspecified Category: Medical (8) Essential hypertension: Code(s): I10 - Essential (primary) hypertension Category: Medical (9) Depression with anxiety: Comment: Sees prescriber and therapist at [facility] Code(s): F41.8 - Other specified anxiety disorders Category: Medical (10) Advance directive discussed with patient: Code(s): Z71.89 - Other specified counseling Plan: Initiated the conversation about Advanced Directives. Advanced Directives help patients prepare for current and future decisions about their medical treatment and place of care. Discussed with patient that it is a process where a patients current condition and prognosis are reviewed, their wishes for information regarding their illness are elicited, and likely medical dilemmas are presented and options discussed. Healthcare proxy form completed today. The form can be amended as needed, reviewed yearly and make changes as needed Plan The patient will continue with her current asthma management using Arnuity Ellipta, with good results. For depression and anxiety, the patient will maintain her current medications, escitalopram and hydroxyzine, under the supervision of her psychiatrist at [facility]. The patient is advised to start vitamin D3 supplementation due to low levels noted in previous tests. Preventative care measures include scheduling a mammogram, Pap smear which she gets at [facility] . Currently sees [facility], advised to to be scheduled for a screening colonoscopy. The patient has declined the shingles vaccine. continue seeing a chiropractor for recurrent back pain and engage in physical therapy as recommended. Patient was informed and verbally consented to the use of an ambient scribe for clinic note documentation during this visit.
--- OUTSIDE RECORDS SUMMARY | 2025-06-16 10:38 | XMS_ITS | Clinical Summary ---
Author Organization [facility] Address [address] [place] [address] Care Team Providers Care Heat Curer Name Role Phone Unavailable Primary Care Provider Unavailabl e Surgical History Surgery Date Site/Laterality Comments SECTION PROCEDURE: HISTORICAL DELIVERY TUBAL LIGATION 1998 PROCEDURE: HISTORICAL TUBAL LIGATION; COMMENT: Helen OTHER SURGICAL HISTORY Right PROCEDURE: CT COCHLEAR DEVICE IMPLANTATION W/WO MASTOIDECTOMY; COMMENT: [facility] Department [address] [place], [place] [id number] Patient: MARIANOERIBERTO /Age/Sex: 1970 - 50 - F Unit#: [id number] Location/Status: SPDIMAM/REG CLI Mnemonic/Ordering Site: [facility] Ordering Physician: YOSEPH MCCALL MIXING TANK OPERATOR Dorothy Screening Digital - 01/20/21 - 1514 INDICATION: SCREENING COMPARISON: [facility] and outside mammograms dating back to 08/02/2015 TECHNIQUE: CC and MLO views of the breasts were obtained, using full field digital mammography with 3D tomosynthesis views in the MLO projection. XCCL view of the right breast was obtained. 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 FINDINGS: The breasts are [...] a target date for the next mammogram. [id number] / [id number]) , [id number] Dictating Physician: AURA DINERO MD Electronically Signed by: AURA DINERO MD Dic Date/Time: 01/20/21 1629 Sign date/Time: 01/20/21 1633 Procedure Note Aura Dinero MD - 10/17/2022 [facility] Diagnostic Imaging Department [address] [place] [address] Patient: ERIBERTO QUINTANA /Age/Sex: 1970 - 50 - F Unit#: [id number] Location/Status: SPDIMAM/REG CLI Mnemonic/Ordering Site: [facility] Ordering Physician: YOSEPH MCCALL NP Dorothy Screening Digital - 01/20/21 - 1514 INDICATION: SCREENING COMPARISON: [facility] and outside mammograms dating back to 08/02/2015 TECHNIQUE: CC and MLO views of the breasts were obtained, using full field digital mammography with 3D tomosynthesis views in the MLO projection. XCCL viewof the right breast was obtained. 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 FINDINGS: The breasts are [...] a target date for the next mammogram. [id number] / [id number]) , [id number] Dictating Physician: AURA DINERO MD Electronically Signed by: AURA DINERO MD Dic Date/Time: 01/20/21 3291 Sign date/Time: 01/20/21 1637 us Yoseph Mccall NP IMG BI PROCEDURES Final Result * Pap smear (11/05/2020) 11/05/2020 Narrative HISTORICAL TESTING LAB RESULTING AGENCY - 11/10/2020 1:10 PM EST [id number] THINPREP PAP, IMAGED: NEGATIVE FOR SQUAMOUS INTRAEPITHELIAL [...]
== END 2025-06-16 10:52 | disposition home or self-care (01) ==
PROVIDERS: PCP Internal Medicine; Visit Provider Internal Medicine
DX: Z00.00 Encounter for general adult medical examination without abnormal findings (principal); M51.369 Other intervertebral disc degeneration, lumbar region without mention of lumbar back pain or lower extremity pain; Z68.30 Body mass index [BMI] 30.0-30.9, adult; E66.9 Obesity, unspecified; J45.20 Mild intermittent asthma, uncomplicated; R12 Heartburn; H91.93 Unspecified hearing loss, bilateral; E55.9 Vitamin D deficiency, unspecified; I10 Essential (primary) hypertension; F41.8 Other specified anxiety disorders; Z71.89 Other specified counseling

== ENCOUNTER 2025-06-30 10:39 | Outpatient (REF) | payer MEDICAID, SELFPAY ==
[2025-06-30 13:01] LABS: Appearance Urine Clear; Glucose Urine UA Negative (Negative); PH 6.0 (5.0-9.0); Specific Gravity - Urine 1.010 (1.005-1.025); UMIC TRIGGER UACC YES
[2025-06-30 13:18] LABS: UACC Culture Trigger YES
== END 2025-06-30 10:40 | disposition home or self-care (01) ==
LOC: HO.LNP 10:39
PROVIDERS: PCP Internal Medicine; Visit Provider Internal Medicine
DX: N30.01 Acute cystitis with hematuria (principal); R35.0 Frequency of micturition
CPT/HCPCS: 81001; 81003; 87086; 99212

== ENCOUNTER 2025-06-30 10:39 | Outpatient (AMB) | payer MEDICAID, SELFPAY ==
[2025-06-30 10:56] VITALS: BP 102/58; PULSE 98; TEMP 37.1; O2SAT 98; BMI 30.5
--- NOTE | 2025-06-30 10:56 | AM.OFFWIN_ITS ---
Intake Vital Signs 06/30/25 10:56 Height 5 ft 3 in Weight 172 lb BMI 30.5 BP 102/58 L Blood Pressure Location Rt brachial Position Sitting Pulse 98 Pulse Source Pulse Oximeter Temp 98.7 F Temp Source Oral Pulse Oximetry (%) 98 Oxygen Delivery Method Room Air Intake Visit Reasons: EP-urine pain Intake Note: pt presents with urine frequency and pressure Patient Tobacco Use Status: Former Tobacco user Allergies naproxen (From NAPROSYN) Adverse Reaction (Unknown, Verified 06/30/25 10:58) STOMACH UPSET Medication List - Last Reconciled 06/30/25 by Amarilys Hodges MD acetaminophen 1,000 mg (2 x 500 mg) PO .q8 PRN albuterol sulfate 90 mcg/actuation (Ventolin HFA) 1 inh inhalation QID PRN amlodipine 10 mg PO DAILY cetirizine 10 mg PO DAILY cyclobenzaprine 10 mg PO TID PRN escitalopram oxalate 5 mg PO DAILY fluticasone furoate 100 mcg/actuation (Arnuity Ellipta) 1 inh inhalation DAILY hydroxyzine HCl 10 mg PO BID omeprazole 40 mg PO DAILY 30 days Do you need a note to return to daycare/school/sports/work: No HPI EP-urine pain HPI Details Chief Complaint The patient complains of urinary discomfort with symptoms of pressure and inflammation for one week. History of Present Illness The patient is a 55-year-old female presenting with urinary symptoms related to a bladder infection. Bladder Infection: - The patient reports urinary discomfort with a sensation of pressure and inflammation in the bladder area. - Symptoms have been present for approxi mately one week. - She denies experiencing fever or vomit ing. - The condition began approximately one week ago and has been consistent since onset. Problem List - Bladder Infection Patient Instructions - Begin taking prescribed antibiotics as directed. - Increase water intake to help flush ou t the infection. Review of Systems - General: Denies fever. - General: No fever no chills - Neurological: No headaches no dizziness - Ear nose throat: No sore throat no hearing difficulty no ear pain - Cardiovascular: No syncope, no chest pain, no palpitations - Gastrointestinal: No nausea vomiting or diarrhea Physical Exam General: No acute distress HEENT: No acute findings Neck: Supple Respiratory system: Able to talk in full sentences, no audible wheeze Back: No CVAT Gastrointestinal: Pressure, bladder infection Extremities: No new findings SALES CONSULTING DIRECTOR: Alert awake oriented x3 motor sensory intact Skin: Normal turgor PFSH Medical History Depression with anxiety Cochlear implant in place Cystitis Chronic heartburn Essential hypertension COVID-19 vaccination declined Hx of dysfunctional uterine bleeding History of use of contraceptive intrauterine device (IUD) Mild intermittent asthma COVID-19 virus infection Nephrolithiasis Vitamin D deficiency Obesity (BMI 30-39.9) Hearing loss associated with syndrome of both ears Surgical History Hx of esophagogastroduodenoscopy History of cochlear implant Family History Father Diabetes mellitus HTN (hypertension) Hyperlipidemia Mother HTN (hypertension) Hyperlipidemia Diabetes mellitus Social History Housing: Apartment Patient Tobacco Use Status: Former Tobacco user e-Cigarette/Vaping Use: Never Used service: No Current occupational status: unemployed Cognitive needs: No Hearing needs: Yes Vision needs: Yes Physical Exam Vital Signs: Last Vital Signs Temp 98.7 F 06/30/25 10:56 Pulse 98 06/30/25 10:56 BP 102/58 L 06/30/25 10:56 Pulse Ox 98 06/30/25 10:56 Oxygen Delivery Method Room Air 06/30/25 10:56 BMI result Body Mass Index 30.5 Assessment & Plan Assessment & Plan (1) Acute cystitis with hematuria: Code(s): N30.01 - Acute cystitis with hematuria Plan Chief Complaint The patient complains of urinary discomfort with symptoms of pressure and inflammation for one week. History of Present Illness The patient is a 55-year-old female presenting with urinary symptoms related to a bladder infection. Bladder Infection: - The patient reports urinary discomfort with a sensation of pressure and inflammation in the bladder area. - Symptoms have been present for approximately one week. - She denies experiencing fever or vomiting. - The condition began approximately one week ago and has been consistent since onset. Problem List - Bladder Infection Patient Instructions - Begin taking prescribed antibiotics as directed. - Increase water intake to help flush out the infection. Orders: Orders UA CC w/rflx Micro + Cult Today N30.01 - Acute cystitis with hematuria Medications: New nitrofurantoin macrocrystal must administer with a meal/food 100 mg PO BID 10 caps 0RF 5 days Coding Level of Care Code Est Pt Level 3 (28115) Diagnoses Acute cystitis with hematuria N30.01
--- OUTSIDE RECORDS SUMMARY | 2025-06-30 12:08 | XMS_ITS | Clinical Summary ---
Author Organization [facility] Address [address] [place] [address] Care Team Providers Care Manager Science Name Role Phone Unavailable Primary Care Provider Unavailabl e Surgical History Surgery Date Site/Laterality Comments SECTION PROCEDURE: HISTORICAL DELIVERY TUBAL LIGATION 1998 PROCEDURE: HISTORICAL TUBAL LIGATION; COMMENT: Helen OTHER SURGICAL HISTORY Right PROCEDURE: [place] COCHLEAR DEVICE IMPLANTATION W/WO MASTOIDECTOMY; COMMENT: Dr. [...] PM EDT Narrative 01/20/2021 4:33 PM EDT [facility] Diagnostic Imaging Department [address] [place], [place] [id number] Patient: MARIANOERIBERTO /Age/Sex: 1970 - 50 - F Unit#: [id number] Location/Status: SPDIMAM/REG CLI Mnemonic/[facility]ing [facility] [facility] Ordering Physician: YOSEPH MCCALL GUIDE CRUISE Dorothy Screening Digital - 01/20/21 - 1514 INDICATION: SCREENING COMPARISON: [facility] and outside mammograms dating back to 08/02/2015 TECHNIQUE: CC and MLO views of the breasts were obtained, using full field digital mammography with 3D tomosynthesis views in the MLO projection. XCCL view of the right breast was obtained. 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 FINDINGS: The breasts are [...] a target date for the next mammogram. [id number] / [id number]) , [id number] Dictating Physician: AURA DINERO MD Electronically Signed by: AURA DINERO MD Dic Date/Time: 01/20/21 1629 Sign date/Time: 01/20/21 1633 Procedure Note Aura Dinero MD - 10/17/2022 [facility] Diagnostic Imaging Department [address] [place] [address] Patient: ERIBERTO QUINTANA /Age/Sex: 1970 - 50 - F Unit#: [id number] Location/Status: SPDIMAM/REG CLI Mnemonic/Ordering Site[place] [facility] Ordering Physician: YOSEPH MCCALL NP Dorothy Screening Digital - 01/20/21 - 1514 INDICATION: SCREENING COMPARISON: [facility] and outside mammograms dating back to 08/02/2015 TECHNIQUE: CC and MLO views of the breasts were obtained, using full field digital mammography with 3D tomosynthesis views in the MLO projection. XCCL viewof the right breast was obtained. 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 FINDINGS: The breasts are [...] a target date for the next mammogram. [id number] / [id number]) , [id number] Dictating Physician: AURA DINERO MD Electronically Signed by: AURA DINERO MD Dic Date/Time: 01/20/21 2375 Sign date/Time: 01/20/21 1634 us Yoseph Mccall NP IMG BI PROCEDURES Final Result * Pap smear (11/05/2020) 11/05/2020 Narrative HISTORICAL TESTING LAB RESULTING AGENCY - 11/10/2020 1:10 PM EST [id number] THINPREP PAP, IMAGED: NEGATIVE FOR SQUAMOUS INTRAEPITHELIAL [...]
== END 2025-06-30 11:03 | disposition home or self-care (01) ==
PROVIDERS: PCP Internal Medicine; Visit Provider Internal Medicine
DX: N30.01 Acute cystitis with hematuria (principal)